=== PATIENT | female | born 1930 | race Caucasian/White ===

== ENCOUNTER 2016-04-17 10:48 | Inpatient (IN) | payer MEDICARE, OTHER ==
[~2016-04-17] VITALS: Ht 170.2 cm; Wt 71.8 kg
--- NOTE | 2016-04-17 11:06 | PHYS DOC ---
General Chief Complaint: SBH Stated Complaint: PSYCH EVLAULATION Time Seen by MD: 10:54 Source: patient, old records Exam Limitations: clinical condition Problems: History of Present Illness Initial Comments Pt is 85/F to ED from [facility] for medical clearance and [facility] admission[facility] for past two week pt increasingly aggressive hitting staff, refusing meds and not sleeping. Pt not sleeping refusing redirection. Staff feels pt inappropriately trying to walk the floor praising God. Pt calm in ED and cooperative. RN reports possible recent fall history, pt with pained expression bearing weight right leg/hip. Pt has DNR Timing/Duration: getting worse (2 weeks) Severity: severe Associated Symptoms: denies symptoms Allergies: Coded Allergies: Penicillins (Verified Allergy, Unknown, 04/17/16) azithromycin (Verified Allergy, Unknown, 04/17/16) Past Medical History Medical History: other (parkinsons, bipolar, psychosis, MDD, eczema, lichen simplex chronicus, disappearance and of family member, hypothyroid, HTN, convulsions, LLE abscess) Surgical History: noncontributory Social History Smoker: non-smoker Alcohol: none Drugs: none Review of Systems All Other Systems: Reviewed and Negative (poor historian accurate ROS unobtainable) Physical Exam General Appearance: no apparent distress Eyes: bilateral eye EOMI, bilateral eye PERRL, bilateral eye normal inspection Ear, Nose, Throat: hearing grossly normal, normal ENT inspection, normal pharynx Neck: non-tender, supple Respiratory: normal breath sounds, no respiratory distress, other (TTP/ bruising R lateral thorax no palpable bony deformity) Cardiovascular: normal peripheral pulses, regular rate, rhythm Gastrointestinal: non tender, soft Back: no CVA tenderness, no vertebral tenderness Extremities: non-tender, normal inspection Neurologic/Psychiatric: alert, disoriented x 3, other (slow to respond, rambles /mumbles, cooperative no hallucinations/agitation) Skin: warm/dry Orders, Labs, Meds EKG: NSR 72 bpm, LVH with poor R progression no STEMI REASON: fall, R hip pain PROCEDURE: HIP BILATERAL WITH PELVIS Exam performed: Single view pelvis and bilateral hips. History: History of fall. Patient is unsure when she fell. Date of service: 04/17/16. Comparison: None available Findings: Single view pelvis and frog leg lateral view bilateral hips are obtained. Study somewhat limited due to positioning. There is foreshortening of the right femoral neck. Joint space narrowing involving both hip joints. There is no acute displaced fracture. Spondylotic changes involving the lumbar spine. Impression: 1. Foreshortening of the right femoral neck without definite visualization of a fracture, however cannot be excluded. Correlate with clinical findings and if there is a suspicion for right hip fracture, evaluation with CT scan may be of benefit. End impression. Right rib series findings: There are several minimally displaced fractures involving the right ribs probably extending from 5 through 8 ribs in the midaxillary line. There is no pleural effusion or pneumothorax. Calcified nodule in the right apex. Impression: 1. Nondisplaced 5 through 8 ribs in the midaxillary line. No pneumothorax. DICTATED AND SIGNED BY: KASIE SOSA MD DATE: 04/17/16 1212 CC: PCP,NO; NAREN BARRIOS DO ~ REASON: further eval R hip PROCEDURE: PELVIS WO CONTRAST Exam performed: CT pelvis without contrast. History: History of fall, suspected right hip fracture. Date of service: 04/17/16. Comparison: X-ray pelvis and right hip from earlier today. Technique: Contiguous helical acquisitions are obtained through the pelvis without IV contrast. Sagittal and coronal before images are obtained and reviewed. Findings: There is narrowing of both hip joints suggesting degenerative arthrosis. No definite fracture seen involving either hip joints or femur is noted. Bilateral sacroiliac joints are preserved. Spondylotic changes involving the lumbar spine. Nonspecific bowel gas pattern. Scattered stool throughout the colon with probable stool impaction rectosigmoid region. Uterus is anteverted. Calcifications within the uterus probably calcified fibroids. Impression: 1. Degenerative arthrosis involving both hips without definite hip fractures. 2. 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 DICTATED AND SIGNED BY: KASIE SOSA MD DATE: 04/17/16 1304 CC: PCP,NO; NAREN BARRIOS DO ~ Pertinent Labs: K+ 3.1 (KCL 40meq given in ED) Medically clear for [facility] admission Dr Dodd is accepting. IMPRESSIONS: Bipolar Disorder with psychotic features hypokalemia mildly displaced right rib fractures 5-8 fall risk Admit to [facility], psychiatric treatment per Dr Dodd. Will replace K+ 20meq PO bid x 2 days, BMP ordered for am. Will reserve analgesics if needed for admitting physician. Departure Time of Disposition: 14:11 Disposition: 09 ADMITTED INPATIENT Diagnosis: bipolar w/psychotic features, hypokalemia, rib fra Condition: STABLE Additional Instructions: [facility] admission Dr Dodd is accepting. NAREN BARRIOS DO Apr 17, 2016 11:06
[2016-04-17 11:32] LABS: BASO % 1 % (0-3); EOS # 0.3 x10^3/uL (0.0-0.7); EOS % 6 % (0-3); HEMATOCRIT 37.5 % (36.0-47.0); HEMOGLOBIN 12.6 g/dL (12.0-15.5); LYMPH # 1.4 x10^3/uL (1.0-4.8); LYMPH % 23 % (24-48); MEAN CORPUSCULAR HEMOGLOBIN 33 pg (25-35); MEAN CORPUSCULAR HGB CONC 34 g/dL (31-37); MEAN CORPUSCULAR VOLUME 97 fL (79-100); MONO # 0.8 x10^3/uL (0.0-1.1); MONO % 13 % (0-9); NEUT # 3.5 x10^3uL (1.8-7.7); NEUT % 59 % (31-73); PLATELET COUNT 207 x10^3/uL (140-400); RED BLOOD COUNT 3.88 x10^6/uL (3.50-5.40); RED CELL DISTRIBUTION WIDTH 13.8 % (11.5-14.5); WHITE BLOOD COUNT 6.1 x10^3/uL (4.0-11.0)
[2016-04-17 11:45] LABS: ALBUMIN 3.6 g/dL (3.4-5.0); ALBUMIN/GLOBULIN RATIO 1.1 (1.0-1.7); CALCIUM 8.1 mg/dL (8.5-10.1); CREATININE 0.8 mg/dL (0.6-1.0); GFR 68.3; POTASSIUM 3.1 mmol/L (3.5-5.1); TOTAL BILIRUBIN 0.5 mg/dL (0.2-1.0); TOTAL PROTEIN 6.8 g/dL (6.4-8.2)
[2016-04-17 11:47] LABS: VAL ACID 37 mcg/mL (50-100)
--- NOTE | 2016-04-17 12:08 | EKG ---
[address] [address] Test Date: 2016-04-17 Test Time: 11:37:06 Pat Name: ROYCE BOOKER Department: Room: Gender: F Information Resources Manager: CHITRA : 1930 Requested By: NAREN BARRIOS Order Number: [id number] Reading MD: Measurements Intervals [place] Rate: 72 P: [place]: QRS: 43 QRSD: 98 T: 27 QT: 486 QTc: 534 Interpretive Statements SINUS RHYTHM QRS(T) CONTOUR ABNORMALITY CONSIDER ANTEROSEPTAL MYOCARDIAL DAMAGE PROLONGED QT POSSIBLY ABNORMAL ECG RI6.01 Unconfirmed report No previous ECG available for comparison
--- NOTE | 2016-04-17 12:22 | RAD ---
Exam performed: Single view pelvis and bilateral hips. History: History of fall. Patient is unsure when she fell. Date of service: 04/17/16. Comparison: None available Findings: Single view pelvis and frog leg lateral view bilateral hips are obtained. Study somewhat limited due to positioning. There is foreshortening of the right femoral neck. Joint space narrowing involving both hip joints. There is no acute displaced fracture. Spondylotic changes involving the lumbar spine. Impression: 1. Foreshortening of the right femoral neck without definite visualization of a fracture, however cannot be excluded. Correlate with clinical findings and if there is a suspicion for right hip fracture, evaluation with CT scan may be of benefit. End impression. Right rib series findings: There are several minimally displaced fractures involving the right ribs probably extending from 5 through 8 ribs in the midaxillary line. There is no pleural effusion or pneumothorax. Calcified nodule in the right apex. Impression: 1. Nondisplaced 5 through 8 ribs in the midaxillary line. No pneumothorax.
[2016-04-17] MEDS ORDERED: POTA20TA4 PO (12:28)
[2016-04-17] MEDS ORDERED: CETY454C TP (12:28)
[2016-04-17] MEDS ORDERED: ESCI10TA PO (12:28)
[2016-04-17] MEDS ORDERED: AMAN100C7 PO (12:28)
[2016-04-17] MEDS ORDERED: ASPI81TA44 PO (12:28)
[2016-04-17] MEDS ORDERED: NYST30PO9 TP (12:28)
[2016-04-17] MEDS ORDERED: RISP1TAB43 PO (12:28)
[2016-04-17] MEDS ORDERED: IBUP200C PO (12:28)
[2016-04-17] MEDS ORDERED: PROP15DR EACHEYE (12:28)
[2016-04-17] MEDS ORDERED: ARIP10TA13 PO (12:28)
[2016-04-17] MEDS ORDERED: LORA1TAB PO (12:28)
[2016-04-17] MEDS ORDERED: PHEN100C PO (12:28)
[2016-04-17] MEDS ORDERED: DIPH25CA58 PO (12:28)
[2016-04-17] MEDS ORDERED: DIVA500T2 PO (12:28)
[2016-04-17] MEDS ORDERED: MINE50OI TP (12:28)
[2016-04-17] MEDS ORDERED: LOPE2TAB56 PO (12:28)
[2016-04-17] MEDS ORDERED: IBUP400T PO (12:28)
[2016-04-17] MEDS ORDERED: BISO1TAB4 PO (12:28)
[2016-04-17] MEDS ORDERED: ACET500T33 PO (12:28)
[2016-04-17] MEDS ORDERED: MULT-503 PO (12:28)
[2016-04-17] MEDS ORDERED: CARB1TAB44 PO (12:28)
[2016-04-17] MEDS ORDERED: LEVO100T5 PO (12:28)
[2016-04-17] MEDS ORDERED: DIVA250T4 PO (12:28)
[2016-04-17] MEDS ORDERED: DOXAPIN (12:28)
[2016-04-17 12:43] LABS: BILIRUBIN,URINE SMALL (NEG); CLARITY,URINE CLEAR; COLOR,URINE ORANGE; GLUCOSE,URINE NEG (NEG)
[2016-04-17 12:44] LABS: BACTERIA,URINE FEW /HPF (0-FEW); NITRITE,URINE NEG (NEG); SQUAMOUS EPITHELIAL CELL,UR FEW /LPF; UROBILINOGEN,URINE 0.2 mg/dL (0.2 mg/dL)
[2016-04-17 12:45] LABS: GRANULAR CASTS,URINE FEW /HPF; HYALINE CASTS, URINE MANY /HPF
[2016-04-17] MEDS ORDERED: POTASSIUM CHLORIDE 20 MEQ/15 ML ORAL LIQUID. PO ONE (13:00)
--- NOTE | 2016-04-17 13:16 | RAD ---
Exam performed: CT pelvis without contrast. History: History of fall, suspected right hip fracture. Date of service: 04/17/16. Comparison: X-ray pelvis and right hip from earlier today. Technique: Contiguous helical acquisitions are obtained through the pelvis without IV contrast. Sagittal and coronal before images are obtained and reviewed. Findings: There is narrowing of both hip joints suggesting degenerative arthrosis. No definite fracture seen involving either hip joints or femur is noted. Bilateral sacroiliac joints are preserved. Spondylotic changes involving the lumbar spine. Nonspecific bowel gas pattern. Scattered stool throughout the colon with probable stool impaction rectosigmoid region. Uterus is anteverted. Calcifications within the uterus probably calcified fibroids. Impression: 1. Degenerative arthrosis involving both hips without definite hip fractures. 2. 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
[2016-04-17] MEDS ORDERED: ACETAMINOPHEN 325 MG TABLET PO PRN ×2 (14:15→15:30)
[2016-04-17 15:12] VITALS: BP 130/82
[2016-04-17] MEDS ORDERED: MAG HYDROX/AL HYDROX/SIMETH 30 ML ORAL.SUSP PO PRN (15:30)
[2016-04-17] MEDS ORDERED: METHYL SALICYLATE/MENTHOL TOPICAL OINTMENT 29GM TUBE. TP PRN (15:30)
[2016-04-17] MEDS ORDERED: DIPHENHYDRAMINE HCL 25 MG CAPSULE PO PRN (15:30)
[2016-04-17] MEDS ORDERED: MAGNESIUM HYDROXIDE 2,400 MG/30 ML ORAL.SUSP. PO PRN (15:30)
[2016-04-17] MEDS ORDERED: PEG OU PRN (15:30)
[2016-04-17] MEDS ORDERED: PROPYLENE GLYCOL OU PRN (15:30)
[2016-04-17] MEDS ORDERED: NYSTATIN TOPICAL POWDER 30GM BOTTLE. TP PRN (15:30)
[2016-04-17] MEDS: MINERAL OIL/PETROLATUM TOPICAL CREAM 113GM JAR. TP SCH ×2 (15:45→20:33)
[2016-04-17] MEDS ORDERED: LOPERAMIDE 2 MG CAPSULE PO PRN (15:45)
[2016-04-17] MEDS ORDERED: IBUPROFEN 200 MG TABLET PO PRN (15:45)
[2016-04-17] MEDS: DIVALPROEX SODIUM 250 MG TABLET.DR. PO SCH (16:30)
[2016-04-17] MEDS: ACETAMINOPHEN 500 MG TABLET PO SCH ×2 (17:00→20:33)
[2016-04-17] MEDS ORDERED: HCTZ PO SCH (17:00)
[2016-04-17] MEDS ORDERED: BISOPROLOL PO SCH (17:00)
[2016-04-17] MEDS: HYDROCHLOROTHIAZIDE 25 MG TABLET PO SCH (17:00)
[2016-04-17] MEDS: ATENOLOL 50 MG TABLET PO SCH (17:00)
[2016-04-17] MEDS: CARBIDOPA/LEVODOPA CR 50/200MG TABLET.SA PO SCH ×2 (17:00→20:32)
--- NOTE | 2016-04-17 17:08 | ACF ---
Admission Criteria Forms PSYCHIATRIC DISORDERS Clinical Indications for Inpatient Care (Place 'X' for any and all applicable criteria): Ongoing inpatient care may be needed for ANY ONE of the following(1)(2)(3)(4)(6) (7)(8): [ ]I. Danger to self or others not manageable at lower level of care. [ ]II. Grave disability (eg, inability to perform self care necessary at lower level of care) [X]III. Agitation or inappropriate behavior interfering with care for primary condition (eg, attempting to discontinue lines or drains prematurely, unable to cooperate with respiratory care) [ ]IV. Severe disability or disorder indicated by ALL of the following: [ ]a) Severe behavioral health disorder-related symptoms or condition indicated by ANY ONE of the following: [ ]i) Severe problem with cognition, memory, judgment, or impulse control [ ]ii) Severe clinical manifestations (eg, hallucinations, delusions, other acute psychotic symptoms, edd, extreme agitation or anxiety) [ ]b) Patient management at lower level of care is not feasible until acute intervention or modification is initiated. Extended stay beyond goal length of stay for the primary condition may be indicated when ANY ONE of the following is present: (1)(2)(3)(4): [ ]a) Patient is a danger to self or others and not manageable at lower level of care. [ ]b) Behavior crisis management, including physical or chemical restraints, is required and is not available at a lower level of care. [ ]c) Behavioral symptoms (e.g., agitation, somnolence, inappropriate behavior) are present, and are not manageable at a lower level of care. [ ]d) Patient cannot understand follow-up treatment and crisis plan. [ ]e) Provider and supports are not sufficiently available at lower level of care. [ ]f) Patient cannot participate (e.g., verify absence of plan for harm) and is in needed of monitoring. The original [employer] content created by [employer] has been revised. The portions of the content which have been revised are identified through the use of italic text or in bold, and [facility] has neither reviewed nor approved the modified material. All other unmodified content is copyright [facility] [employer]. Please see references footnoted in the original [facility] edition 2016 Admission Criteria Met?: Yes PRAMOD BARROW Apr 17, 2016 17:08
[2016-04-17] MEDS ORDERED: MIRT15TA PO (17:35)
[2016-04-17] MEDS ORDERED: TRAZ50TA15 PO (17:35)
[2016-04-17] MEDS: POTASSIUM CHLORIDE 20 MEQ TABLET.ER. PO SCH (17:47)
[2016-04-17] MEDS: ARIPIPRAZOLE 10 MG TABLET PO SCH (20:31)
[2016-04-17] MEDS: IBUPROFEN 400 MG TABLET. PO SCH (20:32)
[2016-04-17] MEDS: CETAPHIL TP SCH (20:32)
[2016-04-17] MEDS: DOXEPIN HCL 10 MG CAPSULE PO SCH (20:32)
[2016-04-17] MEDS ORDERED: PHENYTOIN SODIUM EXTENDED 100 MG CAPSULE PO SCH (21:00)
[2016-04-18] MEDS: LEVOTHYROXINE 100 MCG TABLET PO SCH (05:50)
[2016-04-18] MEDS: POTASSIUM CHLORIDE 20 MEQ TABLET.ER. PO SCH ×2 (05:50→18:06)
[2016-04-18 06:22] VITALS: BP 132/59
[2016-04-18 08:01] LABS: CALCIUM 8.3 mg/dL (8.5-10.1); CREATININE 0.7 mg/dL (0.6-1.0); GFR 79.7; POTASSIUM 3.6 mmol/L (3.5-5.1)
[2016-04-18 08:09] LABS: PHENY 4.9 mcg/mL (10.0-20.0)
[2016-04-18 08:14] LABS: VAL ACID 8 mcg/mL (50-100)
--- NOTE | 2016-04-18 08:42 | PDOC ---
Exam Andrea Demential Exam: Andrea Note: Please also refer to the separate dictated note~for this date of service dictated separately.~Patient seen individually. Discussed the patient with Nursing staff reviewed the chart.~Reviewed interim history and current functioning. Reviewed vital signs,~Labs/ Radiology~and current medications noted below. Continue current treatment with the changes noted in the dictated addendum note Assessment: Vital Signs: Vital Signs Date Time Temp Pulse Resp B/P Pulse Ox O2 Delivery O2 Flow Rate FiO2 04/18/16 06:22 98.4 73 20 132/59 98 Room Air I&O Intake and Output 04/18/16 07:00 Intake Total 200 ml Balance 200 ml Intake Oral 200 ml Labs: Laboratory Tests Test 04/17/16 11:17 04/17/16 11:40 04/18/16 07:31 White Blood Count 6.1x10^3/uL (4.0-11.0) Red Blood Count 3.88x10^6/uL (3.50-5.40) Hemoglobin 12.6g/dL (12.0-15.5) Hematocrit 37.5% (36.0-47.0) Mean Corpuscular Volume 97fL (79-100) Mean Corpuscular Hemoglobin 33pg (25-35) Mean Corpuscular Hemoglobin Concent 34g/dL (31-37) Red Cell Distribution Width 13.8% (11.5-14.5) Platelet Count 207x10^3/uL (140-400) Neutrophils (%) (Auto) 59% (31-73) Lymphocytes (%) (Auto) 23% (24-48) L Monocytes (%) (Auto) 13% (0-9) H Eosinophils (%) (Auto) 6% (0-3) H Basophils (%) (Auto) 1% (0-3) Neutrophils # (Auto) 3.5x10^3uL (1.8-7.7) Lymphocytes # (Auto) 1.4x10^3/uL (1.0-4.8) Monocytes # (Auto) 0.8x10^3/uL (0.0-1.1) Eosinophils # (Auto) 0.3x10^3/uL (0.0-0.7) Basophils # (Auto) 0.0x10^3/uL (0.0-0.2) Sodium Level 141mmol/L (136-145) 144mmol/L (136-145) Potassium Level 3.1mmol/L (3.5-5.1) L 3.6mmol/L (3.5-5.1) Chloride Level 102mmol/L (98-107) 104mmol/L (98-107) Carbon Dioxide Level 31mmol/L (21-32) 31mmol/L (21-32) Anion Gap 8 (6-14) 9 (6-14) Blood Urea Nitrogen 24mg/dL (7-20) H 20mg/dL (7-20) Creatinine 0.8mg/dL (0.6-1.0) 0.7mg/dL (0.6-1.0) Estimated GFR (Cockcroft-Gault) 68.3 79.7 BUN/Creatinine Ratio 30 (6-20) H Glucose Level 103mg/dL (70-99) H 87mg/dL (70-99) Calcium Level 8.1mg/dL (8.5-10.1) L 8.3mg/dL (8.5-10.1) L Total Bilirubin 0.5mg/dL (0.2-1.0) Aspartate Amino Transferase (AST) 34U/L (15-37) Alanine Aminotransferase (ALT) 13U/L (14-59) L Alkaline Phosphatase 122U/L (46-116) H Total Protein 6.8g/dL (6.4-8.2) Albumin 3.6g/dL (3.4-5.0) Albumin/Globulin Ratio 1.1 (1.0-1.7) Thyroid Stimulating Hormone (TSH) 8.142uIU/mL (0.358-3.740) Phenytoin (Dilantin) Level 4.0mcg/mL (10.0-20.0) L 4.9mcg/mL (10.0-20.0) L Phenytoin Last Dose Date 04/17/16 04/17/16 Phenytoin Last Dose Time [id number] Valproic Acid Level 37mcg/mL (50-100) L 8mcg/mL (50-100) L Valproic Acid Last Dose Date 04/17/16 04/17/16 Valproic Acid Last Dose Time 0700 2100 Urine Collection Type U cath Urine Color [place] Urine Clarity Clear Urine pH 5.5 Urine Specific [place] >=1.030 Urine Protein Trace (NEG-TRACE) Urine Glucose (UA) Negmg/dL (NEG) Urine Ketones (Stick) Tracemg/dL (NEG) Urine Blood Neg (NEG) Urine Nitrite Neg (NEG) Urine Bilirubin Small (NEG) Urine Urobilinogen Dipstick 0.2mg/dL (0.2 mg/dL) Urine Leukocyte Esterase Neg (NEG) Urine RBC 1-2/HPF (0-2) Urine WBC 1-4/HPF (0-4) Urine Squamous Epithelial Cells Few/LPF Urine Bacteria Few/HPF (0-FEW) Urine Hyaline Casts Many/HPF Urine Granular Casts Few/HPF Urine Mucus Slight/LPF Magnesium Level 1.8mg/dL (1.8-2.4) Current Medications: Meds: Current Medications Potassium Chloride (KCl Oral Soln) 40 meq 1X ONCE PO Last administered on 04/17 13:12; Start 04/17/16 at 13:00; Stop 04/17/16 at 13:01; Status DC Acetaminophen (Tylenol) 650 mg PRN Q6HRS PRN PO PAIN / TEMP; Start 04/17/16 at 14:15; Status Cancel Potassium Chloride (Klor-Con) 20 meq BID66 PO Last administered on 04/18/16 05: 50; Start 04/17/16 at 18:00; Stop 04/19/16 at 07:00 Acetaminophen (Tylenol) 650 mg PRN Q6HRS PRN PO PAIN / TEMP; Start 04/17/16 at 15:30 Multi-Ingredient Ointment (Analgesic [place]) 1 beba PRN QID PRN TP MUSCLE PAIN; Start 04/17/16 at 15:30 Al Hydroxide/Mg Hydroxide (Mylanta Plus Xs) 15 ml PRN AFTMEALHC PRN PO DYSPEPSIA; Start 04/17/16 at 15:30 Magnesium Hydroxide (Milk Of Magnesia) 2,400 mg PRN QHS PRN PO CONSTIPATION; Start 04/17/16 at 15:30 Acetaminophen (Tylenol) 500 mg QID PO Last administered on 04/17/16 20:33; Start 04/17/16 at 17:00 Amantadine HCl (Symmetrel) 100 mg DAILY PO ; Start 04/18/16 at 09:00 Aripiprazole (Abilify) 10 mg HS PO Last administered on 04/17/16 20:31; Start 04/17/16 at 21:00 Aspirin (Children'S Aspirin) 81 mg DAILY PO ; Start 04/18/16 at 09:00 Bisoprolol Fumarate (Ziac 5-6.25) 1 tab DAILYWSUP PO ; Start 04/17/16 at 17:00; Stop 04/17/16 at 17:00; Status DC Carbidopa/Levodopa (Sinemet Cr) 1 tab.sa QID PO Last administered on 04/17/16 20:32; Start 04/17/16 at 17:00 Diphenhydramine HCl (Benadryl) 25 mg PRN Q4HRS PRN PO ITCHING; Start 04/17/16 at 15:30 Divalproex Sodium (Depakote) 250 mg BIDACLD PO ; Start 04/17/16 at 16:30 Escitalopram Oxalate (Lexapro) 10 mg DAILY PO ; Start 04/18/16 at 09:00 Ibuprofen (Motrin) 400 mg HS PO Last administered on 04/17/16 20:32; Start at 21:00 Levothyroxine Sodium (Synthroid) 100 mcg DAILY06 PO Last administered on 05:50; Start 04/18/16 at 06:00 Lorazepam (Ativan) 1 mg PRN Q8HRS PRN PO ANXIETY / AGITATION; Start 04/17/16 at 15:30 Nystatin (Nystop) 1 beba PRN TID PRN TP ITCHING; Start 04/17/16 at 15:30 Phenytoin Sodium (Dilantin) 300 mg HS PO Last administered on 04/17/16 20:31; Start 04/17/16 at 21:00 Potassium Chloride (Klor-Con) 20 meq DAILY PO ; Start 04/18/16 at 09:00; Stop 04/18/16 at 09:00; Status DC Polyethyl Glycol/ Propylene Glycol (Systane 0.3-0.4% Ophth) 1 drop PRN QID PRN OU DRY EYE; Start 04/17/16 at 15:30 Multi-Ingredient Lotion (Cetaphil Moisturizing Lotion) 1 beba BID TP Last administered on 04/17/16 20:32; Start 04/17/16 at 21:00 Divalproex Sodium (Depakote) 500 mg DAILY PO ; Start 04/18/16 at 09:00 Ibuprofen (Motrin) 200 mg PRN Q6HRS PRN PO PAIN; Start 04/17/16 at 15:45 Loperamide HCl (Imodium) 2 mg PRN Q15MIN PRN PO DIARRHEA; Start 04/17/16 at 15: 45 Multi-Ingred Cream/Lotion/Oil/ Oint (Hydrocerin) 1 beba QHS TP Last administered on 04/17/16 20:33; Start 04/17/16 at 15:45 Multivitamins/ Calcium (Thera-M Plus) 1 tab DAILY PO ; Start 04/18/16 at 09:00 Doxepin HCl (Sinequan) 10 mg QHS PO Last administered on 04/17/16 20:32; Start 04/17/16 at 21:00 Atenolol (Tenormin) 50 mg DAILYWSUP PO ; Start 04/17/16 at 17:00 Hydrochlorothiazide (Hydrodiuril) 6.25 mg DAILYWSUP PO ; Start 04/17/16 at 17:00 Potassium Chloride (Klor-Con) 20 meq DAILY PO ; Start 04/20/16 at 09:00 Active Scripts Active Reported Trazodone Hcl 50 Mg Tablet 50 Mg PO PRN QHS PRN Remeron (Mirtazapine) 15 Mg Tablet 7.5 Mg PO HS Klor-Con M20 (Potassium Chloride) 20 Meq Tab.er.prt 20 Meq PO DAILY Systane 0.3-0.4% Eye Drops (Propylene Glycol/Peg 400) 15 Ml Drops 1 Drop EACHEYE PRN PRN Nystatin 15 Gm Powder 1 Beba TP PRN PRN Lorazepam 1 Mg Tablet 1 Mg PO PRN Q8HRS PRN Anti-Diarrhea (Loperamide Hcl) 2 Mg Tablet 2 Mg PO PRN PRN Ibuprofen 200 Mg Capsule 200 Mg PO PRN Q6HRS PRN Benadryl (Diphenhydramine Hcl) 25 Mg Capsule 25 Mg PO PRN Q4HRS PRN Tylenol Extra Strength (Acetaminophen) 500 Mg Tablet 500 Mg PO QID Carbidopa-Levo Er 50-200 Tab (Carbidopa/Levodopa) 1 Each Tablet.er 1 Each PO QID Depakote (Divalproex Sodium) 250 Mg Tablet.dr 250 Mg PO BIDACLD Cetaphil Cream (Cetyl Alc/Stearyl Alc/Pg/Sls) 454 Gm Cream..g. 1 Beba TP BID Thera-M (Multivits,Th W-Fe,Other Min) 1 Each Tablet 1 Each PO DAILY Dilantin (Phenytoin Sodium Extended) 100 Mg Capsule 300 Mg PO HS Escitalopram Oxalate 10 Mg Tablet 10 Mg PO DAILY Levothyroxine Sodium 100 Mcg Tablet 100 Mcg PO DAILYAC Ibuprofen 400 Mg Tablet 400 Mg PO HS [doxapin] 10 Mg HS Depakote (Divalproex Sodium) 500 Mg Tablet.dr 500 Mg PO DAILY Bisoprolol-Hctz 5-6.25 Mg Tab (Bisoprolol Fumarate/Hctz) 1 Each Tablet 1 Tab PO DAILYWSUP Children's Aspirin (Aspirin) 81 Mg Tab.chew 81 Mg PO DAILY Amantadine (Amantadine Hcl) 100 Mg Capsule 100 Mg PO DAILY Abilify (Aripiprazole) 10 Mg Tablet 10 Mg PO HS Aquaphor Healing Ointment (Mineral Oil/Hydrophil Petrolat) 50 Gm Oint...g. 1 Beba TP HS Diagnosis: Problems: (1) Bipolar disorder with psychotic features LOUANN ARCEO MD Apr 18, 2016 08:42
[2016-04-18] MEDS ORDERED: POTASSIUM CHLORIDE 20 MEQ TABLET.ER. PO SCH (09:00)
[2016-04-18] MEDS: CETAPHIL TP SCH ×2 (09:00→20:16)
[2016-04-18] MEDS: ACETAMINOPHEN 500 MG TABLET PO SCH ×4 (09:31→20:17)
[2016-04-18] MEDS: MULTIVITAMIN with MINERAL TABLET. PO SCH (09:31)
[2016-04-18] MEDS: CARBIDOPA/LEVODOPA CR 50/200MG TABLET.SA PO SCH ×4 (09:31→20:19)
[2016-04-18] MEDS: ESCITALOPRAM 10 MG TABLET. PO SCH (09:31)
[2016-04-18] MEDS: ASPIRIN 81 MG TAB.CHEW PO SCH (09:31)
[2016-04-18] MEDS: AMANTADINE HCL 100 MG CAPSULE PO SCH (09:32)
[2016-04-18] MEDS: DIVALPROEX SODIUM 250 MG TABLET.DR. PO SCH ×3 (09:33→18:06)
[2016-04-18 14:11] LABS: IRON,SERUM 76 ug/dL (50-170)
[2016-04-18 15:57] VITALS: BP 104/54
[2016-04-18] MEDS: HYDROCHLOROTHIAZIDE 25 MG TABLET PO SCH (17:00)
[2016-04-18] MEDS: ATENOLOL 50 MG TABLET PO SCH (17:00)
--- NOTE | 2016-04-18 17:36 | HP ---
ADMIT DATE: 04/17/2016 The patient was seen individually evening of 04/17/2016 for this assessment, discussed with nursing staff earlier in the day, reviewed the chart, reviewed information from alf. IDENTIFYING DATA: The patient is an 85-year-old female [facility] Dr. Mclaughlin, her primary care physician, on account of increasing agitation after the patient was hitting staff, had marked insomnia, aggressive, refusing medications, hyper-restoration, hallucinating within the context of her history of dementia versus bipolar disorder and failure for outpatient psychiatric interventions. CHIEF COMPLAINT: "I'm okay." The patient was lying in bed, seemed oriented just to herself, but difficult to assess as she is not very verbal as I met with her evening of 04/17/2016. HISTORY OF PRESENT ILLNESS: The patient has a history of bipolar disorder with psychotic features. Recently, she has been hitting staff, has had marked insomnia, aggression, refusing medications, hyper-restoration, hallucinating. She has had some sleep and appetite changes as well. Reportedly, per nursing report, the patient has had multiple bruising around her chest area and has fractured ribs on x-ray and I will defer to Dr. Calero/Dr. Palmer for medical management. No clear suicidal or homicidal ideation. She does have significant history of mood swings, consistent with her above diagnosis. PAST PSYCHIATRIC HISTORY: As above. PAST MEDICAL HISTORY: Hypothyroidism, Parkinson's disease, hypertension, seizure disorder. ALLERGIES: PENICILLIN, AZITHROMYCIN. CODE STATUS: DNR. CURRENT PSYCHOTROPICS: Remeron 7.5 mg at bedtime, trazodone 50 mg at bedtime p.r.n., may repeat x 1 for insomnia. FAMILY HISTORY: Noncontributory. SOCIAL HISTORY: No alcohol, drug abuse, physical, sexual or elder abuse history is noted. She is not known to be a perpetrator. MENTAL STATUS EXAMINATION: The patient was seen individually evening of 04/17/2016. She is lying in bed, oriented to herself, not very verbal. Insight, judgment, recent and remote memory, attention, concentration, fund of knowledge poor, consistent with her diagnosis. VITAL SIGNS: Temperature 97.8, respirations 18, BP 134/66. IMPRESSION: Bipolar 1 disorder, mixed episode with psychotic features; major neurocognitive disorder, early Alzheimer, vascular with delusions, behavioral disturbance; anxiety disorder, unspecified; impulse control disorder, unspecified. Rest diagnoses unchanged. PLAN: Admit to the geropsychiatry unit at [facility]. Request Dr. Calero/Dr. Palmer to follow the patient from a medical standpoint. I will see the patient daily individually, observe baseline, then adjust psychotropics. We may need to add Seroquel as a mood stabilizer, but we would make this decision after the baseline assessment. MAN Mary ARCEO MD DR: BETSY/brandie JOB#: [id number] / [id number]
[2016-04-18 18:11] LABS: T3 TOTAL 103 ng/dL (71-180); THYROXINE 5.5 ug/dL (4.5-12.0)
[2016-04-18] MEDS: MINERAL OIL/PETROLATUM TOPICAL CREAM 113GM JAR. TP SCH (20:17)
[2016-04-18] MEDS: OXcarbazepine 150 MG TABLET. PO SCH (20:18)
[2016-04-18] MEDS: PHENYTOIN SODIUM EXTENDED 100 MG CAPSULE PO SCH (20:19)
[2016-04-18] MEDS: IBUPROFEN 400 MG TABLET. PO SCH (20:19)
[2016-04-18] MEDS: ARIPIPRAZOLE 10 MG TABLET PO SCH (20:19)
[2016-04-18] MEDS: DOXEPIN HCL 10 MG CAPSULE PO SCH (22:07)
[2016-04-19 01:10] LABS: VITAMIN D25(OH)TOTAL 7.1 ng/mL (30.0-100.0)
--- NOTE | 2016-04-19 02:21 | CONS ---
DATE OF CONSULTATION: 04/18/2016 REASON FOR CONSULTATION: Medical management. HISTORY OF PRESENT ILLNESS: The patient is an 85-year-old female patient, a resident at [facility], who was evaluated in the Emergency Room, was admitted to [facility] on the account of being increasingly aggressive over the last 2 weeks, hitting staff, refusing medication, and not sleeping, and was admitted for inpatient psychiatric stabilization. PAST MEDICAL HISTORY: Significant for hypertension, hypothyroidism, seizure disorder, and Parkinson disease. PAST PSYCHIATRIC HISTORY: Significant for bipolar disorder, major depressive disorder, and psychosis. PAST SURGICAL HISTORY: Unremarkable. FAMILY HISTORY: Noncontributory. SOCIAL HISTORY: [facility]. She does not smoke, drink alcohol, or use recreational drugs. ALLERGIES: She is allergic to PENICILLIN AND AZITHROMYCIN. MEDICATIONS: She is currently on Tylenol 500 mg 4 times a day, amantadine 100 mg once a day, Abilify 10 mg at bedtime, aspirin 81 mg once a day, bisoprolol fumarate/hydrochlorothiazide 5/6.25 mg once a day, carbidopa/levodopa extended release 50/200 one tablet 4 times a day, Cetaphil cream applied topically twice a day for dry skin, diphenhydramine 25 mg every 4 hours for itching, divalproex sodium 500 mg once a day, Depakote 250 mg p.o. b.i.d., Lexapro 10 mg once a day, ibuprofen 400 mg at bedtime, ibuprofen 200 mg every 6 hours, levothyroxine sodium 100 mcg once a day, loperamide 2 mg as needed every 4 hours for diarrhea, mirtazapine 7.5 mg at bedtime, multivitamin with mineral 1 tablet once a day, nystatin powder applied topically twice a day, phenytoin sodium for Dilantin 300 mg at bedtime, potassium chloride 20 mEq once a day, Systane 1 drop to both eyes as needed, trazodone 50 mg at bedtime, doxepin 10 mg at bedtime. PHYSICAL EXAMINATION: GENERAL: On examining her, the patient was sitting comfortably in her wheelchair, in no apparent distress. She was slightly pale, but no jaundice, cyanosis, or thyromegaly. No jugular venous distention. No limb edema. VITAL SIGNS: Her heart rate was 73, blood pressure 132/59, temperature was 98.4, respiratory rate 20, and oxygen saturation was 98%. HEAD, EYES, EARS, NOSE, AND THROAT: Showed normocephalic, atraumatic. NECK: Supple. HEART: Showed normal first and second heart sounds. No gallop, rub, or murmur. CHEST: Clear to auscultation. No crepitation or rhonchi. ABDOMEN: Distended, soft, nontender. No guarding or rigidity. No organomegaly. All hernial orifices are intact. Bowel sounds normal. NEUROLOGIC: She is awake, alert, and confused. All cranial nerves intact. EXTREMITIES: She moves extremities without difficulty, although she is mostly chair bound. LABORATORY DATA: Her lab work showed a white cell count of 6100, hemoglobin 12.6, hematocrit 37.5, MCV 97, and platelet count of 207,000 with normal manual differential. Her serum sodium was 141, potassium 3.1, chloride 102, bicarbonate 31, anion gap of 8, BUN 24, creatinine 0.8. Estimated GFR was 68 mL per minute. Her glucose was 103, calcium was 8.1. Total bilirubin, AST, ALT were normal. Alkaline phosphatase is slightly elevated. Total protein was 6.8, albumin 3.6. Her TSH was high at 8.142. Her magnesium was 1.8. Serum iron was 76, total iron binding capacity was 111, and percent saturation was 36. Her serum triglycerides were 168, total cholesterol was 233, LDL was 158, VLDL was 33, and HDL cholesterol was 42, the ratio was 5. Her urinalysis was essentially unremarkable and was negative for nitrites and leukocyte esterase. There were only 1-4 rbc's, very few bacteria. Her toxic screen showed that her valproic acid was only 37, and phenytoin was 4.9. She did have a CT scan. She did have an x-ray, single view, of the pelvis and bilateral hips, which showed that there is foreshortening of the right femoral neck without definite visualization of the fracture; however, it cannot be excluded. Correlate with clinical findings, and if there is a suspicion with the right hip fracture to evaluate with a CT scan. She did have a right hip series finding in which there are several minimally displaced fractures involving the right ribs, probably extending from the fifth to eighth ribs in the mid axillary area. There is no pleural effusion or pneumothorax. Calcified nodules in the right apex. The CT scan of the pelvis showed degenerative arthrosis involving both hip joints without definite hip fractures, spondylitic changes, degenerative disk disease involving the lumbar spine. IMPRESSION: In summary, this is an 85-year-old female patient, who was a resident at [facility], who was admitted on the account of being increasingly aggressive, hitting staff, refusing medications, and not sleeping; all these in the background of major depressive disorder and psychosis. She has multiple medical problems including hypothyroidism, Parkinson disease, seizure disorder. Her phenytoin level is subtherapeutic. Her TSH is high. PLAN: My plan is to check her T3, T4, free T4, and repeat her Dilantin level to see whether she might have missed some doses and that is why her phenytoin level is subtherapeutic. Thank you, Dr. Dodd for allowing me to participate in the care of this patient. KRISTIE BABCOCK MD DR: ROBINSON/brandie JOB#: [id number] / [id number]
[2016-04-19 03:11] LABS: RPR REFLEX Negative (Non Reactive)
[2016-04-19] MEDS: POTASSIUM CHLORIDE 20 MEQ TABLET.ER. PO SCH (05:52)
[2016-04-19] MEDS: LEVOTHYROXINE 100 MCG TABLET PO SCH (05:52)
[2016-04-19 06:24] VITALS: BP 150/67
[2016-04-19] MEDS: ESCITALOPRAM 10 MG TABLET. PO SCH (08:18)
[2016-04-19] MEDS: CARBIDOPA/LEVODOPA CR 50/200MG TABLET.SA PO SCH ×4 (08:18→20:32)
[2016-04-19] MEDS: OXcarbazepine 150 MG TABLET. PO SCH ×2 (08:18→20:31)
[2016-04-19] MEDS: ACETAMINOPHEN 500 MG TABLET PO SCH ×4 (08:19→20:32)
[2016-04-19] MEDS: ASPIRIN 81 MG TAB.CHEW PO SCH (08:19)
[2016-04-19] MEDS: DIVALPROEX SODIUM 250 MG TABLET.DR. PO SCH ×3 (08:19→17:15)
[2016-04-19] MEDS: MULTIVITAMIN with MINERAL TABLET. PO SCH (08:19)
[2016-04-19] MEDS: LIDOCAINE (700MG/PATCH) PATCH. TD SCH (08:21)
[2016-04-19] MEDS: AMANTADINE HCL 100 MG CAPSULE PO SCH (08:21)
[2016-04-19] MEDS: CETAPHIL TP SCH ×2 (08:22→20:34)
--- NOTE | 2016-04-19 08:39 | PDOC ---
Exam Andrea Demential Exam: Andrea Note: Please also refer to the separate dictated note~for this date of service dictated separately.~Patient seen individually. Discussed the patient with Nursing staff reviewed the chart.~Reviewed interim history and current functioning. Reviewed vital signs,~Labs/ Radiology~and current medications noted below. Continue current treatment with the changes noted in the dictated addendum note Assessment: Vital Signs: Vital Signs Date Time Temp Pulse Resp B/P Pulse Ox O2 Delivery O2 Flow Rate FiO2 04/19/16 06:24 98.0 73 20 150/67 94 Room Air I&O Intake and Output 04/19/16 07:00 Intake Total 840 ml Balance 840 ml Intake Oral 840 ml # Bowel Movements 1 Current Medications: Meds: Current Medications Potassium Chloride (KCl Oral Soln) 40 meq 1X ONCE PO Last administered on 04/17 13:12; Start 04/17/16 at 13:00; Stop 04/17/16 at 13:01; Status DC Acetaminophen (Tylenol) 650 mg PRN Q6HRS PRN PO PAIN / TEMP; Start 04/17/16 at 14:15; Status Cancel Potassium Chloride (Klor-Con) 20 meq BID66 PO Last administered on 04/19/16 05: 52; Start 04/17/16 at 18:00; Stop 04/19/16 at 07:00; Status DC Acetaminophen (Tylenol) 650 mg PRN Q6HRS PRN PO PAIN / TEMP; Start 04/17/16 at 15:30 Multi-Ingredient Ointment (Analgesic Bushnell) 1 beba PRN QID PRN TP MUSCLE PAIN; Start 04/17/16 at 15:30 Al Hydroxide/Mg Hydroxide (Mylanta Plus Xs) 15 ml PRN AFTMEALHC PRN PO DYSPEPSIA; Start 04/17/16 at 15:30 Magnesium Hydroxide (Milk Of Magnesia) 2,400 mg PRN QHS PRN PO CONSTIPATION; Start 04/17/16 at 15:30 Acetaminophen (Tylenol) 500 mg QID PO Last administered on 04/19/16 08:19; Start 04/17/16 at 17:00 Amantadine HCl (Symmetrel) 100 mg DAILY PO Last administered on 04/19/16 08:21 ; Start 04/18/16 at 09:00 Aripiprazole (Abilify) 10 mg HS PO Last administered on 04/18/16 20:19; Start 04/17/16 at 21:00 Aspirin (Children'S Aspirin) 81 mg DAILY PO Last administered on 04/19/16 08:19 ; Start 04/18/16 at 09:00 Bisoprolol Fumarate (Ziac 5-6.25) 1 tab DAILYWSUP PO ; Start 04/17/16 at 17:00; Stop 04/17/16 at 17:00; Status DC Carbidopa/Levodopa (Sinemet Cr) 1 tab.sa QID PO Last administered on 04/19/16 08:18; Start 04/17/16 at 17:00 Diphenhydramine HCl (Benadryl) 25 mg PRN Q4HRS PRN PO ITCHING; Start 04/17/16 at 15:30 Divalproex Sodium (Depakote) 250 mg BIDACLD PO Last administered on 04/18/16 18 :06; Start 04/17/16 at 16:30 Escitalopram Oxalate (Lexapro) 10 mg DAILY PO Last administered on 04/19/16 08: 18; Start 04/18/16 at 09:00 Ibuprofen (Motrin) 400 mg HS PO Last administered on 04/18/16 20:19; Start at 21:00 Levothyroxine Sodium (Synthroid) 100 mcg DAILY06 PO Last administered on 05:52; Start 04/18/16 at 06:00 Lorazepam (Ativan) 1 mg PRN Q8HRS PRN PO ANXIETY / AGITATION; Start 04/17/16 at 15:30 Nystatin (Nystop) 1 beba PRN TID PRN TP ITCHING; Start 04/17/16 at 15:30 Phenytoin Sodium (Dilantin) 300 mg HS PO Last administered on 04/17/16 20:31; Start 04/17/16 at 21:00; Stop 04/18/16 at 16:28; Status DC Potassium Chloride (Klor-Con) 20 meq DAILY PO ; Start 04/18/16 at 09:00; Stop 04/18/16 at 09:00; Status DC Polyethyl Glycol/ Propylene Glycol (Systane 0.3-0.4% [facility]) 1 drop PRN QID PRN OU DRY EYE; Start 04/17/16 at 15:30 Multi-Ingredient Lotion (Cetaphil Moisturizing Lotion) 1 beba BID TP Last administered on 04/17/16 20:32; Start 04/17/16 at 21:00; Stop 04/18/16 at 15:18 ; Status DC Divalproex Sodium (Depakote) 500 mg DAILY PO Last administered on 04/19/16 08: 19; Start 04/18/16 at 09:00 Ibuprofen (Motrin) 200 mg PRN Q6HRS PRN PO PAIN; Start 04/17/16 at 15:45 Loperamide HCl (Imodium) 2 mg PRN Q15MIN PRN PO DIARRHEA; Start 04/17/16 at 15: 45 Multi-Ingred Cream/Lotion/Oil/ Oint (Hydrocerin) 1 beba QHS TP Last administered on 04/17/16 20:33; Start 04/17/16 at 15:45; Stop 04/18/16 at 15:17 ; Status DC Multivitamins/ Calcium (Thera-M Plus) 1 tab DAILY PO Last administered on 08:19; Start 04/18/16 at 09:00 Doxepin HCl (Sinequan) 10 mg QHS PO Last administered on 04/18/16 22:07; Start 04/17/16 at 21:00 Atenolol (Tenormin) 50 mg DAILYWSUP PO ; Start 04/17/16 at 17:00 Hydrochlorothiazide (Hydrodiuril) 6.25 mg DAILYWSUP PO ; Start 04/17/16 at 17:00 Potassium Chloride (Klor-Con) 20 meq DAILY PO ; Start 04/20/16 at 09:00 Multi-Ingred Cream/Lotion/Oil/ Oint (Hydrocerin) 1 beba QHS TP Last administered on 04/18/16 20:17; Start 04/18/16 at 15:17 Multi-Ingredient Lotion (Cetaphil Moisturizing Lotion) 1 beba BID TP Last administered on 04/19/16 08:22; Start 04/18/16 at 15:18 Phenytoin Sodium (Dilantin) 400 mg HS PO Last administered on 04/18/16 20:19; Start 04/18/16 at 21:00 Lidocaine (Lidoderm) 1 patch DAILY TD Last administered on 04/19/16 08:21; Start 04/19/16 at 09:00 Oxcarbazepine (Trileptal) 150 mg BID PO Last administered on 04/19/16 08:18; Start 04/18/16 at 21:00 Active Scripts Active Reported Trazodone Hcl 50 Mg Tablet 50 Mg PO PRN QHS PRN Remeron (Mirtazapine) 15 Mg Tablet 7.5 Mg PO HS Klor-Con M20 (Potassium Chloride) 20 Meq Tab.er.prt 20 Meq PO DAILY Systane 0.3-0.4% Eye Drops (Propylene Glycol/Peg 400) 15 Ml Drops 1 Drop EACHEYE PRN PRN Nystatin 15 Gm Powder 1 Beba TP PRN PRN Lorazepam 1 Mg Tablet 1 Mg PO PRN Q8HRS PRN Anti-Diarrhea (Loperamide Hcl) 2 Mg Tablet 2 Mg PO PRN PRN Ibuprofen 200 Mg Capsule 200 Mg PO PRN Q6HRS PRN Benadryl (Diphenhydramine Hcl) 25 Mg Capsule 25 Mg PO PRN Q4HRS PRN Tylenol Extra Strength (Acetaminophen) 500 Mg Tablet 500 Mg PO QID Carbidopa-Levo Er 50-200 Tab (Carbidopa/Levodopa) 1 Each Tablet.er 1 Each PO QID Depakote (Divalproex Sodium) 250 Mg Tablet.dr 250 Mg PO BIDACLD Cetaphil Cream (Cetyl Alc/Stearyl Alc/Pg/Sls) 454 Gm Cream..g. 1 Beba TP BID Thera-M (Multivits, W-,Other Min) 1 Each Tablet 1 Each PO DAILY Dilantin (Phenytoin Sodium Extended) 100 Mg Capsule 300 Mg PO HS Escitalopram Oxalate 10 Mg Tablet 10 Mg PO DAILY Levothyroxine Sodium 100 Mcg Tablet 100 Mcg PO DAILYAC Ibuprofen 400 Mg Tablet 400 Mg PO HS [doxapin] 10 Mg HS Depakote (Divalproex Sodium) 500 Mg Tablet.dr 500 Mg PO DAILY Bisoprolol-Hctz 5-6.25 Mg Tab (Bisoprolol Fumarate/Hctz) 1 Each Tablet 1 Tab PO DAILYWSUP Children's Aspirin (Aspirin) 81 Mg Tab.chew 81 Mg PO DAILY Amantadine (Amantadine Hcl) 100 Mg Capsule 100 Mg PO DAILY Abilify (Aripiprazole) 10 Mg Tablet 10 Mg PO HS Aquaphor Healing Ointment (Mineral Oil/Hydrophil Petrolat) 50 Gm Oint...g. 1 Beba TP HS Diagnosis: Problems: (1) Bipolar disorder with psychotic features LOUANN ARCEO MD Apr 19, 2016 08:39
[2016-04-19 15:42] VITALS: BP 114/57
[2016-04-19] MEDS: ATENOLOL 50 MG TABLET PO SCH (17:16)
[2016-04-19] MEDS: HYDROCHLOROTHIAZIDE 25 MG TABLET PO SCH (17:17)
[2016-04-19] MEDS: PHENYTOIN SODIUM EXTENDED 100 MG CAPSULE PO SCH (20:31)
[2016-04-19] MEDS: ARIPIPRAZOLE 10 MG TABLET PO SCH (20:31)
[2016-04-19] MEDS: IBUPROFEN 400 MG TABLET. PO SCH (20:32)
[2016-04-19] MEDS: DOXEPIN HCL 10 MG CAPSULE PO SCH (20:34)
[2016-04-19] MEDS: MINERAL OIL/PETROLATUM TOPICAL CREAM 113GM JAR. TP SCH (20:34)
[2016-04-20] MEDS: LORAZEPAM 1 MG TABLET. PO PRN (02:33)
--- NOTE | 2016-04-20 03:57 | CONS ---
DATE OF CONSULTATION: 04/19/2016 NEUROLOGY CONSULTATION REFERRING PHYSICIAN: Ronni Dodd MD REASON FOR CONSULTATION: Seizure disorder and medication adjustment. HISTORY OF PRESENT ILLNESS: This is an 85-year-old right-handed white female who was admitted through Emergency Room on 04/17/2016 on account of aggressive behavior disturbances. The patient is a resident at [facility], presented to Emergency Room with a 2-week history of aggressive-behavior disturbances as the patient was hitting staff members, refusing her medications, having difficulty sleeping, and mood disturbances. A Neuro consult was requested because the patient on multiple anticonvulsant and desired to being on monotherapy. Monitor for her seizure disorder. The accuracy of her seizure is unknown. The patient described a sudden onset of mental status change with intermittent convulsions. The patient did not recall the event. She has not had seizures since admission. The patient denies headaches, visual disturbances, nausea, vomiting, chest pain, shortness of breath or palpitation. She does complain of chronic lower back pain and pain of the hips. PAST SURGICAL HISTORY: Significant for hypertension, hyperlipidemia, seizure disorders, and Parkinson disease. PAST PSYCHIATRIC HISTORY: Consistent with major depression, bipolar disorder and psychosis. FAMILY HISTORY: Not obtainable. ALLERGIES: AZITHROMYCIN AND PENICILLIN. CURRENT MEDICATIONS: Potassium chloride, lidocaine derm patches, carbamazepine 150 mg b.i.d., phenytoin 400 mg at bedtime, multivitamins, calcium, Depakote 500 mg daily and Depakote 250 mg b.i.d., Lexapro 10 mg daily, amantadine, sumatriptan 100 mg daily, levothyroxine 100 mg daily, doxepin 10 mg at bedtime, ibuprofen 400 mg at bedtime, Abilify 10 mg at bedtime, HydroDIURIL 6.25 mg daily, atenolol 50 mg daily, carbidopa/levodopa ER 50/200 q.i.d., Tylenol, Imodium 2 mg every 15 minutes p.r.n. for diarrhea, lorazepam 1 mg q 8 hours p.r.n. for anxiety, Benadryl 25 mg q 4 hours p.r.n. for itching, and Mylanta. REVIEW OF SYSTEMS: A 10-point review of system was performed and consistent with psychosis, dementia, depression, symptoms of parkinsonism include tremor and difficulty standing and walking, lower back pain, bilateral hip pain. PHYSICAL EXAMINATION: GENERAL: Well-developed, well-nourished white female, not in acute distress. VITAL SIGNS: She weighs 156 pounds. Blood pressure 114/57, respiratory rate 16, pulse 73 and regular, temperature 97.7, oxygen saturation 98% on room air. HEENT: Normocephalic, atraumatic, otherwise unremarkable. NECK: Supple. Negative for carotid bruit, lymphadenopathy, JVD or thyromegaly. LUNGS: Clear to A and P. CARDIOVASCULAR: Regular rate and rhythm, normal S1, S2. There is no S3, S4 or murmur. ABDOMEN: Soft. Bowel sounds positive. EXTREMITIES: Negative for cyanosis, clubbing or pitting edema. NEUROLOGICAL: 1. MENTAL STATUS: The patient is alert to herself and to place. She is disoriented to time. Speech is slow, but fluent. There is no obvious language dysfunction. Memory, judgment, and abstract thinking are fair. The patient denies hallucination or delusion. 2. CRANIAL NERVES: Visual munoz are full. The pupils are reactive to light and accommodation. Extraocular movements are intact. There is no nystagmus. There is no facial motor or sensory deficit. Hearing appears to be intact. The palate is elevated symmetrically. Sternocleidomastoid muscles are powerful bilaterally. The patient shrugs her shoulders symmetrically, protrudes her tongue in the midline without fasciculation or atrophy. 3. MOTOR EXAMINATION: No focal muscle bulk was seen. The tone is slightly increased in the lower extremities. The strength is 4/5 throughout. Sensory examination is good. Very mild tremor at rest was noted. 4. SENSORY EXAMINATION: Normal pinprick and light touch senses throughout. 5. DEEP TENDON REFLEXES: Symmetric and hypoactive with absent Achilles responses. 6. GAIT: The stance is unsteady. LABORATORY DATA: CBC revealed white blood cells of 6.1 thousand, hemoglobin 12.6, hematocrit 37.5, and platelet count 207,000. Chemistry revealed sodium of 144, potassium 3.7, chloride 104, CO2 is 31, BUN 20, creatinine 0.7, glucose is 87, and calcium is 8.3. Liver enzymes are normal, except for low ALT, alkaline phosphatase is high at 122 with high triglycerides at 168 and cholesterol 233 with normal HDL, low vitamin D, and high TSH at 8.1 with normal free T4 and levothyroxine. Urinalysis, no evidence of urinary tract infections. Toxicology, phenytoin level is low at 4.9. Valproic acid is 8. RPR is negative. DIAGNOSTIC STUDIES: Pelvic CT scan revealed degenerative arthrosis with a changes of the lumbar spine. Pelvic x-ray revealed evidence of no fracture of the hip and x-ray of the right ribs revealed no ribs fracture. IMPRESSION: 1. History of seizure disorder of unknown etiology. The patient has been on a Trileptal, phenytoin, which is leveled currently subtherapeutic. 2. Parkinson disease. 3. Multiple medical problems includes hypertension, hypothyroidism, vitamin D deficiency. 4. Multiple psychiatric problems including depression, possible suspicion bipolar, and dementia. 5. Lower back pain and hip pain. RECOMMENDATIONS: 1. Obtain EEG. 2. As current phenytoin level is subtherapeutic, therefore, we will taper phenytoin gradually over 2 weeks. 3. We will continue with Trileptal and probably tapered off slowly if the EEG is normal. 4. Continue with current management initiated by Dr. Palmer and Dr. Dodd. 5. Physical therapy as tolerated. M Mis SIDHU MD DR: KIRSTEN/brandie JOB#: [id number] / [id number]
[2016-04-20] MEDS: LEVOTHYROXINE 100 MCG TABLET PO SCH (05:58)
[2016-04-20 06:19] VITALS: BP 143/52
[2016-04-20] MEDS: MULTIVITAMIN with MINERAL TABLET. PO SCH (09:05)
[2016-04-20] MEDS: DIVALPROEX SODIUM 250 MG TABLET.DR. PO SCH ×3 (09:05→16:26)
[2016-04-20] MEDS: CARBIDOPA/LEVODOPA CR 50/200MG TABLET.SA PO SCH ×4 (09:05→20:12)
[2016-04-20] MEDS: AMANTADINE HCL 100 MG CAPSULE PO SCH (09:05)
[2016-04-20] MEDS: ESCITALOPRAM 10 MG TABLET. PO SCH (09:05)
[2016-04-20] MEDS: OXcarbazepine 150 MG TABLET. PO SCH ×2 (09:05→20:12)
[2016-04-20] MEDS: ACETAMINOPHEN 500 MG TABLET PO SCH ×4 (09:05→20:23)
[2016-04-20] MEDS: ASPIRIN 81 MG TAB.CHEW PO SCH (09:05)
[2016-04-20] MEDS: POTASSIUM CHLORIDE 20 MEQ TABLET.ER. PO SCH (09:09)
[2016-04-20] MEDS: LIDOCAINE (700MG/PATCH) PATCH. TD SCH (09:09)
[2016-04-20] MEDS: CETAPHIL TP SCH ×2 (09:10→20:20)
--- NOTE | 2016-04-20 13:25 | PN ---
DATE: 04/18/2016 This is a late entry for 04/18/2016, covers elements not covered in my initial note. SUBJECTIVE: The patient is anxious in the morning, wanting to leave, hallucinating, said she raised her hand and stopped a pack of Dobermans running at her. She is able to state she is in a "mental institution." REVIEW OF SYSTEMS: Ambulation impaired. No CV, , pulmonary, eye, ENT system symptoms on review. MENTAL STATUS EXAM: Hard of hearing, oriented to herself and situation. Speech coherent, has some pressure, abstraction fair, computation impaired, language function intact, attention span short. Mood and affect remain somewhat labile. LABORATORY DATA: Reviewed. IMPRESSION: Bipolar 1 disorder, mixed with psychotic features; anxiety disorder, unspecified; impulse control disorder, unspecified; cognitive disorder, unspecified. PLAN: Start Trileptal 150 mg twice a day as a mood stabilizer. Maintain Remeron 7.5 at bedtime, trazodone p.r.n. Adjust further as clinically indicated. LOUANN ARCEO MD DR: BETSY/brandie JOB#: [id number] / [id number]
--- NOTE | 2016-04-20 13:29 | PN ---
DATE: 04/19/2016 PSYCHIATRIC PROGRESS NOTE This is a late entry 04/19/2016, covers elements not covered in my initial note. SUBJECTIVE: The patient was staffed at treatment team meeting with entire team morning of 04/19/2016. Seen individually evening of 04/19/2016. Appetite about 60%, sleeping about 6 hours, quite hard of hearing. Ambulation impaired, in a wheelchair. No CV, , pulmonary, eye system symptoms on review. The patient remains somewhat paranoid, suspicious, overly latter-day. Family revealed that she has a long history of depression in an assisted living, had a grand mal seizure 13 years ago, recent stresses where her sister last July. She states she was for 15 years, gets confused, actually was about 30 years. We will ask for past psychiatric records from her last hospitalization. REVIEW OF SYSTEMS: Ambulation impaired, hard of hearing. No CV, , pulmonary, eye system symptoms on review. MENTAL STATUS EXAM: Oriented to herself and situation. Speech coherent, abstraction fair, computation impaired, language function intact, attention span short. Mood and affect somewhat grandiose at times. LABORATORY DATA: Reviewed. IMPRESSION: Bipolar 1 disorder, mixed with psychotic features; cognitive disorder, unspecified. PLAN: Continue Trileptal 150 twice a day, trazodone along with Remeron 7.5 mg at bedtime. Adjust further as clinically indicated. MAN Mary ARCEO MD DR: BETSY/brandie JOB#: [id number] / [id number]
--- NOTE | 2016-04-20 13:31 | PN ---
DATE: 04/20/2016 PSYCHIATRIC PROGRESS NOTE This note is written to supplement my prior note on the patient. The patient has a history of seizure disorder, on Dilantin. Will have a Neurology consult with Dr. Ribera, who has ordered an EEG to see whether she could be treated on Depakote, which might help her mood lability as well in place of the Dilantin and Trileptal for her seizures. I will defer this decision to Dr. Ribera. MAN Mary ARCEO MD DR: BETSY/brandie JOB#: [id number] / [id number]
[2016-04-20 16:21] VITALS: BP 110/70
[2016-04-20] MEDS: ATENOLOL 50 MG TABLET PO SCH (16:21)
[2016-04-20] MEDS: HYDROCHLOROTHIAZIDE 25 MG TABLET PO SCH (16:21)
[2016-04-20] MEDS: ARIPIPRAZOLE 10 MG TABLET PO SCH (20:12)
[2016-04-20] MEDS: DOXEPIN HCL 10 MG CAPSULE PO SCH (20:13)
[2016-04-20] MEDS: IBUPROFEN 400 MG TABLET. PO SCH (20:13)
[2016-04-20] MEDS: MIRTAZAPINE 7.5 MG TABLET. PO SCH (20:14)
[2016-04-20] MEDS: MINERAL OIL/PETROLATUM TOPICAL CREAM 113GM JAR. TP SCH (20:20)
--- NOTE | 2016-04-20 20:20 | PDOC ---
Exam Andrea Demential Exam: Andrea Note: Please also refer to the separate dictated note~for this date of service dictated separately.~Patient seen individually. Discussed the patient with Nursing staff reviewed the chart.~Reviewed interim history and current functioning. Reviewed vital signs,~Labs/ Radiology~and current medications noted below. Continue current treatment with the changes noted in the dictated addendum note Assessment: Vital Signs: Vital Signs Date Time Temp Pulse Resp B/P Pulse Ox O2 Delivery O2 Flow Rate FiO2 04/20/16 16:21 97.8 60 18 110/70 98 04/20/16 06:19 Room Air I&O Intake and Output 04/20/16 07:00 Intake Total 1080 ml Balance 1080 ml Intake Oral 1080 ml # Bowel Movements 2 Current Medications: Meds: Current Medications Potassium Chloride (KCl Oral Soln) 40 meq 1X ONCE PO Last administered on 04/17 13:12; Start 04/17/16 at 13:00; Stop 04/17/16 at 13:01; Status DC Acetaminophen (Tylenol) 650 mg PRN Q6HRS PRN PO PAIN / TEMP; Start 04/17/16 at 14:15; Status Cancel Potassium Chloride (Klor-Con) 20 meq BID66 PO Last administered on 04/19/16 05: 52; Start 04/17/16 at 18:00; Stop 04/19/16 at 07:00; Status DC Acetaminophen (Tylenol) 650 mg PRN Q6HRS PRN PO PAIN / TEMP; Start 04/17/16 at 15:30 Multi-Ingredient Ointment (Analgesic [place]) 1 beba PRN QID PRN TP MUSCLE PAIN; Start 04/17/16 at 15:30 Al Hydroxide/Mg Hydroxide (Mylanta Plus Xs) 15 ml PRN AFTMEALHC PRN PO DYSPEPSIA; Start 04/17/16 at 15:30 Magnesium Hydroxide (Milk Of Magnesia) 2,400 mg PRN QHS PRN PO CONSTIPATION; Start 04/17/16 at 15:30 Acetaminophen (Tylenol) 500 mg QID PO Last administered on 04/20/16 16:21; Start 04/17/16 at 17:00 Amantadine HCl (Symmetrel) 100 mg DAILY PO Last administered on 04/20/16 09:05 ; Start 04/18/16 at 09:00 Aripiprazole (Abilify) 10 mg HS PO Last administered on 04/20/16 20:12; Start 04/17/16 at 21:00 Aspirin (Children'S Aspirin) 81 mg DAILY PO Last administered on 04/20/16 09:05 ; Start 04/18/16 at 09:00 Bisoprolol Fumarate (Ziac 5-6.25) 1 tab DAILYWSUP PO ; Start 04/17/16 at 17:00; Stop 04/17/16 at 17:00; Status DC Carbidopa/Levodopa (Sinemet Cr) 1 tab.sa QID PO Last administered on 04/20/16 20:12; Start 04/17/16 at 17:00 Diphenhydramine HCl (Benadryl) 25 mg PRN Q4HRS PRN PO ITCHING; Start 04/17/16 at 15:30 Divalproex Sodium (Depakote) 250 mg BIDACLD PO Last administered on 04/20/16 16 :26; Start 04/17/16 at 16:30 Escitalopram Oxalate (Lexapro) 10 mg DAILY PO Last administered on 04/20/16 09: 05; Start 04/18/16 at 09:00 Ibuprofen (Motrin) 400 mg HS PO Last administered on 04/20/16 20:13; Start at 21:00 Levothyroxine Sodium (Synthroid) 100 mcg DAILY06 PO Last administered on 05:58; Start 04/18/16 at 06:00 Lorazepam (Ativan) 1 mg PRN Q8HRS PRN PO ANXIETY / AGITATION Last administered on 04/20/16 02:33; Start 04/17/16 at 15:30 Nystatin (Nystop) 1 beba PRN TID PRN TP ITCHING; Start 04/17/16 at 15:30 Phenytoin Sodium (Dilantin) 300 mg HS PO Last administered on 04/17/16 20:31; Start 04/17/16 at 21:00; Stop 04/18/16 at 16:28; Status DC Potassium Chloride (Klor-Con) 20 meq DAILY PO ; Start 04/18/16 at 09:00; Stop 04/18/16 at 09:00; Status DC Polyethyl Glycol/ Propylene Glycol (Systane 0.3-0.4% Oph) 1 drop PRN QID PRN OU DRY EYE; Start 04/17/16 at 15:30 Multi-Ingredient Lotion (Cetaphil Moisturizing Lotion) 1 beba BID TP Last administered on 04/17/16 20:32; Start 04/17/16 at 21:00; Stop 04/18/16 at 15:18 ; Status DC Divalproex Sodium (Depakote) 500 mg DAILY PO Last administered on 04/20/16 09: 05; Start 04/18/16 at 09:00 Ibuprofen (Motrin) 200 mg PRN Q6HRS PRN PO PAIN; Start 04/17/16 at 15:45 Loperamide HCl (Imodium) 2 mg PRN Q15MIN PRN PO DIARRHEA; Start 04/17/16 at 15: 45 Multi-Ingred Cream/Lotion/Oil/ Oint (Hydrocerin) 1 beba QHS TP Last administered on 04/17/16 20:33; Start 04/17/16 at 15:45; Stop 04/18/16 at 15:17 ; Status DC Multivitamins/ Calcium (Thera-M Plus) 1 tab DAILY PO Last administered on 09:05; Start 04/18/16 at 09:00 Doxepin HCl (Sinequan) 10 mg QHS PO Last administered on 04/20/16 20:13; Start 04/17/16 at 21:00 Atenolol (Tenormin) 50 mg DAILYWSUP PO Last administered on 04/20/16 16:21; Start 04/17/16 at 17:00 Hydrochlorothiazide (Hydrodiuril) 6.25 mg DAILYWSUP PO Last administered on 04/20 16:21; Start 04/17/16 at 17:00 Potassium Chloride (Klor-Con) 20 meq DAILY PO Last administered on 04/20/16 09: 09; Start 04/20/16 at 09:00 Multi-Ingred Cream/Lotion/Oil/ Oint (Hydrocerin) 1 beba QHS TP Last administered on 04/19/16 20:34; Start 04/18/16 at 15:17 Multi-Ingredient Lotion (Cetaphil Moisturizing Lotion) 1 beba BID TP Last administered on 04/20/16 09:10; Start 04/18/16 at 15:18 Phenytoin Sodium (Dilantin) 400 mg HS PO Last administered on 04/19/16 20:31; Start 04/18/16 at 21:00; Stop 04/20/16 at 09:25; Status DC Lidocaine (Lidoderm) 1 patch DAILY TD Last administered on 04/20/16 09:09; Start 04/19/16 at 09:00 Oxcarbazepine (Trileptal) 150 mg BID PO Last administered on 04/20/16 20:12; Start 04/18/16 at 21:00 Mirtazapine (Remeron) 7.5 mg QHS PO Last administered on 04/20/16 20:14; Start 04/20/16 at 21:00 Active Scripts Active Reported Trazodone Hcl 50 Mg Tablet 50 Mg PO PRN QHS PRN Remeron (Mirtazapine) 15 Mg Tablet 7.5 Mg PO HS Klor-Con M20 (Potassium Chloride) 20 Meq Tab.er.prt 20 Meq PO DAILY Systane 0.3-0.4% Eye Drops (Propylene Glycol/Peg 400) 15 Ml Drops 1 Drop EACHEYE PRN PRN Nystatin 15 Gm Powder 1 Beba TP PRN PRN Lorazepam 1 Mg Tablet 1 Mg PO PRN Q8HRS PRN Anti-Diarrhea (Loperamide Hcl) 2 Mg Tablet 2 Mg PO PRN PRN Ibuprofen 200 Mg Capsule 200 Mg PO PRN Q6HRS PRN Benadryl (Diphenhydramine Hcl) 25 Mg Capsule 25 Mg PO PRN Q4HRS PRN Tylenol Extra Strength (Acetaminophen) 500 Mg Tablet 500 Mg PO QID Carbidopa-Levo Er 50-200 Tab (Carbidopa/Levodopa) 1 Each Tablet.er 1 Each PO QID Depakote (Divalproex Sodium) 250 Mg Tablet.dr 250 Mg PO BIDACLD Cetaphil Cream (Cetyl Alc/Stearyl Alc/Pg/Sls) 454 Gm Cream..g. 1 Beba TP BID Thera-M (Multivits,Th W-Fe,Other Min) 1 Each Tablet 1 Each PO DAILY Dilantin (Phenytoin Sodium Extended) 100 Mg Capsule 300 Mg PO HS Escitalopram Oxalate 10 Mg Tablet 10 Mg PO DAILY Levothyroxine Sodium 100 Mcg Tablet 100 Mcg PO DAILYAC Ibuprofen 400 Mg Tablet 400 Mg PO HS [doxapin] 10 Mg HS Depakote (Divalproex Sodium) 500 Mg Tablet.dr 500 Mg PO DAILY Bisoprolol-Hctz 5-6.25 Mg Tab (Bisoprolol Fumarate/Hctz) 1 Each Tablet 1 Tab PO DAILYWSUP Children's Aspirin (Aspirin) 81 Mg Tab.chew 81 Mg PO DAILY Amantadine (Amantadine Hcl) 100 Mg Capsule 100 Mg PO DAILY Abilify (Aripiprazole) 10 Mg Tablet 10 Mg PO HS Aquaphor Healing Ointment (Mineral Oil/Hydrophil Petrolat) 50 Gm Oint...g. 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
[2016-04-21] MEDS: LORAZEPAM 1 MG TABLET. PO PRN ×2 (03:19→20:30)
[2016-04-21] MEDS: LEVOTHYROXINE 100 MCG TABLET PO SCH (06:20)
[2016-04-21 06:30] VITALS: BP 153/76
--- NOTE | 2016-04-21 08:10 | PDOC ---
Exam Andrea Demential Exam: Andrea Note: Please also refer to the separate dictated note~for this date of service dictated separately.~Patient seen individually. Discussed the patient with Nursing staff reviewed the chart.~Reviewed interim history and current functioning. Reviewed vital signs,~Labs/ Radiology~and current medications noted below. Continue current treatment with the changes noted in the dictated addendum note Assessment: Vital Signs: Vital Signs Date Time Temp Pulse Resp B/P Pulse Ox O2 Delivery O2 Flow Rate FiO2 04/21/16 06:30 97.7 66 18 153/76 99 04/20/16 06:19 Room Air I&O Intake and Output 04/21/16 07:00 Intake Total 720 ml Balance 720 ml Intake Oral 720 ml # Bowel Movements 1 Current Medications: Meds: Current Medications Potassium Chloride (KCl Oral Soln) 40 meq 1X ONCE PO Last administered on 04/17 13:12; Start 04/17/16 at 13:00; Stop 04/17/16 at 13:01; Status DC Acetaminophen (Tylenol) 650 mg PRN Q6HRS PRN PO PAIN / TEMP; Start 04/17/16 at 14:15; Status Cancel Potassium Chloride (Klor-Con) 20 meq BID66 PO Last administered on 04/19/16 05: 52; Start 04/17/16 at 18:00; Stop 04/19/16 at 07:00; Status DC Acetaminophen (Tylenol) 650 mg PRN Q6HRS PRN PO PAIN / TEMP; Start 04/17/16 at 15:30 Multi-Ingredient Ointment (Analgesic [place]) 1 beba PRN QID PRN TP MUSCLE PAIN; Start 04/17/16 at 15:30 Al Hydroxide/Mg Hydroxide (Mylanta Plus Xs) 15 ml PRN AFTMEALHC PRN PO DYSPEPSIA; Start 04/17/16 at 15:30 Magnesium Hydroxide (Milk Of Magnesia) 2,400 mg PRN QHS PRN PO CONSTIPATION; Start 04/17/16 at 15:30 Acetaminophen (Tylenol) 500 mg QID PO Last administered on 04/20/16 16:21; Start 04/17/16 at 17:00 Amantadine HCl (Symmetrel) 100 mg DAILY PO Last administered on 04/20/16 09:05 ; Start 04/18/16 at 09:00 Aripiprazole (Abilify) 10 mg HS PO Last administered on 04/20/16 20:12; Start 04/17/16 at 21:00 Aspirin (Children'S Aspirin) 81 mg DAILY PO Last administered on 04/20/16 09:05 ; Start 04/18/16 at 09:00 Bisoprolol Fumarate (Ziac 5-6.25) 1 tab DAILYWSUP PO ; Start 04/17/16 at 17:00; Stop 04/17/16 at 17:00; Status DC Carbidopa/Levodopa (Sinemet Cr) 1 tab.sa QID PO Last administered on 04/20/16 20:12; Start 04/17/16 at 17:00 Diphenhydramine HCl (Benadryl) 25 mg PRN Q4HRS PRN PO ITCHING; Start 04/17/16 at 15:30 Divalproex Sodium (Depakote) 250 mg BIDACLD PO Last administered on 04/20/16 16 :26; Start 04/17/16 at 16:30 Escitalopram Oxalate (Lexapro) 10 mg DAILY PO Last administered on 04/20/16 09: 05; Start 04/18/16 at 09:00 Ibuprofen (Motrin) 400 mg HS PO Last administered on 04/20/16 20:13; Start at 21:00 Levothyroxine Sodium (Synthroid) 100 mcg DAILY06 PO Last administered on 06:20; Start 04/18/16 at 06:00 Lorazepam (Ativan) 1 mg PRN Q8HRS PRN PO ANXIETY / AGITATION Last administered on 04/21/16 03:19; Start 04/17/16 at 15:30 Nystatin (Nystop) 1 beba PRN TID PRN TP ITCHING; Start 04/17/16 at 15:30 Phenytoin Sodium (Dilantin) 300 mg HS PO Last administered on 04/17/16 20:31; Start 04/17/16 at 21:00; Stop 04/18/16 at 16:28; Status DC Potassium Chloride (Klor-Con) 20 meq DAILY PO ; Start 04/18/16 at 09:00; Stop 04/18/16 at 09:00; Status DC Polyethyl Glycol/ Propylene Glycol (Systane 0.3-0.4% Oph) 1 drop PRN QID PRN OU DRY EYE; Start 04/17/16 at 15:30 Multi-Ingredient Lotion (Cetaphil Moisturizing Lotion) 1 beba BID TP Last administered on 04/17/16 20:32; Start 04/17/16 at 21:00; Stop 04/18/16 at 15:18 ; Status DC Divalproex Sodium (Depakote) 500 mg DAILY PO Last administered on 04/20/16 09: 05; Start 04/18/16 at 09:00 Ibuprofen (Motrin) 200 mg PRN Q6HRS PRN PO PAIN; Start 04/17/16 at 15:45 Loperamide HCl (Imodium) 2 mg PRN Q15MIN PRN PO DIARRHEA; Start 04/17/16 at 15: 45 Multi-Ingred Cream/Lotion/Oil/ Oint (Hydrocerin) 1 beba QHS TP Last administered on 04/17/16 20:33; Start 04/17/16 at 15:45; Stop 04/18/16 at 15:17 ; Status DC Multivitamins/ Calcium (Thera-M Plus) 1 tab DAILY PO Last administered on 09:05; Start 04/18/16 at 09:00 Doxepin HCl (Sinequan) 10 mg QHS PO Last administered on 04/20/16 20:13; Start 04/17/16 at 21:00 Atenolol (Tenormin) 50 mg DAILYWSUP PO Last administered on 04/20/16 16:21; Start 04/17/16 at 17:00 Hydrochlorothiazide (Hydrodiuril) 6.25 mg DAILYWSUP PO Last administered on 04/20 16:21; Start 04/17/16 at 17:00 Potassium Chloride (Klor-Con) 20 meq DAILY PO Last administered on 04/20/16 09: 09; Start 04/20/16 at 09:00 Multi-Ingred Cream/Lotion/Oil/ Oint (Hydrocerin) 1 beba QHS TP Last administered on 04/20/16 20:20; Start 04/18/16 at 15:17 Multi-Ingredient Lotion (Cetaphil Moisturizing Lotion) 1 beba BID TP Last administered on 04/20/16 20:20; Start 04/18/16 at 15:18 Phenytoin Sodium (Dilantin) 400 mg HS PO Last administered on 04/19/16 20:31; Start 04/18/16 at 21:00; Stop 04/20/16 at 09:25; Status DC Lidocaine (Lidoderm) 1 patch DAILY TD Last administered on 04/20/16 09:09; Start 04/19/16 at 09:00 Oxcarbazepine (Trileptal) 150 mg BID PO Last administered on 04/20/16 20:12; Start 04/18/16 at 21:00 Mirtazapine (Remeron) 7.5 mg QHS PO Last administered on 04/20/16 20:14; Start 04/20/16 at 21:00 Active Scripts Active Reported Trazodone Hcl 50 Mg Tablet 50 Mg PO PRN QHS PRN Remeron (Mirtazapine) 15 Mg Tablet 7.5 Mg PO HS Klor-Con M20 (Potassium Chloride) 20 Meq Tab.er.prt 20 Meq PO DAILY Systane 0.3-0.4% Eye Drops (Propylene Glycol/Peg 400) 15 Ml Drops 1 Drop EACHEYE PRN PRN Nystatin 15 Gm Powder 1 Beba TP PRN PRN Lorazepam 1 Mg Tablet 1 Mg PO PRN Q8HRS PRN Anti-Diarrhea (Loperamide Hcl) 2 Mg Tablet 2 Mg PO PRN PRN Ibuprofen 200 Mg Capsule 200 Mg PO PRN Q6HRS PRN Benadryl (Diphenhydramine Hcl) 25 Mg Capsule 25 Mg PO PRN Q4HRS PRN Tylenol Extra Strength (Acetaminophen) 500 Mg Tablet 500 Mg PO QID Carbidopa-Levo Er 50-200 Tab (Carbidopa/Levodopa) 1 Each Tablet.er 1 Each PO QID Depakote (Divalproex Sodium) 250 Mg Tablet.dr 250 Mg PO BIDACLD Cetaphil Cream (Cetyl Alc/Stearyl Alc/Pg/Sls) 454 Gm Cream..g. 1 Beba TP BID Thera-M (Multivits,Th W-Fe,Other Min) 1 Each Tablet 1 Each PO DAILY Dilantin (Phenytoin Sodium Extended) 100 Mg Capsule 300 Mg PO HS Escitalopram Oxalate 10 Mg Tablet 10 Mg PO DAILY Levothyroxine Sodium 100 Mcg Tablet 100 Mcg PO DAILYAC Ibuprofen 400 Mg Tablet 400 Mg PO HS [doxapin] 10 Mg HS Depakote (Divalproex Sodium) 500 Mg Tablet.dr 500 Mg PO DAILY Bisoprolol-Hctz 5-6.25 Mg Tab (Bisoprolol Fumarate/Hctz) 1 Each Tablet 1 Tab PO DAILYWSUP Children's Aspirin (Aspirin) 81 Mg Tab.chew 81 Mg PO DAILY Amantadine (Amantadine Hcl) 100 Mg Capsule 100 Mg PO DAILY Abilify (Aripiprazole) 10 Mg Tablet 10 Mg PO HS Aquaphor Healing Ointment (Mineral Oil/Hydrophil Petrolat) 50 Gm Oint...g. 1 Beba TP HS Diagnosis: Problems: (1) Bipolar disorder with psychotic features (2) Bipolar affective, mixed (3) Anxiety disorder (4) Dementia in Alzheimer's disease with delusions (5) Dementia in Alzheimer's disease with depression (6) Impulse control disorder LOUANN ARCEO MD Apr 21, 2016 08:10
[2016-04-21] MEDS: ESCITALOPRAM 10 MG TABLET. PO SCH (08:37)
[2016-04-21] MEDS: AMANTADINE HCL 100 MG CAPSULE PO SCH (08:37)
[2016-04-21] MEDS: ACETAMINOPHEN 500 MG TABLET PO SCH ×5 (08:37→21:00)
[2016-04-21] MEDS: MULTIVITAMIN with MINERAL TABLET. PO SCH (08:38)
[2016-04-21] MEDS: ASPIRIN 81 MG TAB.CHEW PO SCH (08:38)
[2016-04-21] MEDS: CARBIDOPA/LEVODOPA CR 50/200MG TABLET.SA PO SCH ×5 (08:39→21:00)
[2016-04-21] MEDS: DIVALPROEX SODIUM 250 MG TABLET.DR. PO SCH ×3 (08:39→16:26)
[2016-04-21] MEDS: POTASSIUM CHLORIDE 20 MEQ TABLET.ER. PO SCH (08:39)
[2016-04-21] MEDS: OXcarbazepine 150 MG TABLET. PO SCH (08:39)
[2016-04-21] MEDS: LIDOCAINE (700MG/PATCH) PATCH. TD SCH (08:40)
[2016-04-21] MEDS: CETAPHIL TP SCH ×3 (08:40→21:43)
[2016-04-21 15:45] VITALS: BP 113/81
[2016-04-21] MEDS: HYDROCHLOROTHIAZIDE 25 MG TABLET PO SCH (16:26)
[2016-04-21] MEDS: ATENOLOL 50 MG TABLET PO SCH (16:26)
[2016-04-21] MEDS: ARIPIPRAZOLE 10 MG TABLET PO SCH ×2 (20:26→21:00)
[2016-04-21] MEDS: MIRTAZAPINE 7.5 MG TABLET. PO SCH ×2 (20:27→21:00)
[2016-04-21] MEDS: IBUPROFEN 400 MG TABLET. PO SCH ×2 (20:27→21:54)
[2016-04-21] MEDS: DOXEPIN HCL 10 MG CAPSULE PO SCH ×2 (20:30→21:00)
[2016-04-21] MEDS: MINERAL OIL/PETROLATUM TOPICAL CREAM 113GM JAR. TP SCH ×2 (20:31→21:00)
--- NOTE | 2016-04-21 23:05 | PN ---
DATE: 04/20/2016 PSYCHIATRIC PROGRESS NOTE This is a late entry for 04/20/2016, covers elements not covered in my initial note. SUBJECTIVE: Per nursing report, the patient has been paranoid, psychotic, stating there are evil people around her. EEG is being done. Dilantin was held, and she has been up since 02:30 in the morning, wanting to stay in bed all day. REVIEW OF SYSTEMS: Ambulation impaired, in her wheelchair. No CV, , pulmonary, eye, ENT system symptoms on review. MENTAL STATUS EXAM: Oriented to herself and situation. Speech coherent. Abstraction fair. Computation impaired. Language function intact. Attention span short. Mood and affect remained somewhat labile. LABORATORY DATA: Labs reviewed. IMPRESSION: Bipolar 1 disorder, mixed with psychotic features, in partial remission; anxiety disorder, unspecified; cognitive disorder, unspecified. PLAN: Maintain Trileptal 150 [address] 500 in the morning, 250 b.i.d.; Abilify 10 mg a day; Ativan and Benadryl p.r.n.; Remeron 7.5 at bedtime. We will defer to Dr. Ribera whether the Dilantin and Trileptal can be changed to Depakote as a mood stabilizer and for her seizure disorder. MAN Mary ARCEO MD DR: BETSY/brandie JOB#: [id number] / [id number]
[2016-04-22] MEDS: LEVOTHYROXINE 100 MCG TABLET PO SCH (05:17)
[2016-04-22 06:24] VITALS: BP 165/84
[2016-04-22 08:39] LABS: VAL ACID 13 mcg/mL (50-100)
--- NOTE | 2016-04-22 08:42 | PDOC ---
Exam Andrea Demential Exam: Andrea Note: Please also refer to the separate dictated note~for this date of service dictated separately.~Patient seen individually. Discussed the patient with Nursing staff reviewed the chart.~Reviewed interim history and current functioning. Reviewed vital signs,~Labs/ Radiology~and current medications noted below. Continue current treatment with the changes noted in the dictated addendum note Assessment: Vital Signs: Vital Signs Date Time Temp Pulse Resp B/P Pulse Ox O2 Delivery O2 Flow Rate FiO2 04/22/16 06:24 97.7 82 22 165/84 96 04/20/16 06:19 Room Air I&O Intake and Output 04/22/16 07:00 Intake Total 720 ml Balance 720 ml Intake Oral 720 ml Labs: Laboratory Tests Test 04/22/16 08:05 Valproic Acid Level 13mcg/mL (50-100) L Valproic Acid Last Dose Date 04/21/16 Valproic Acid Last Dose Time 2100 Current Medications: Meds: Current Medications Potassium Chloride (KCl Oral Soln) 40 meq 1X ONCE PO Last administered on 04/17 13:12; Start 04/17/16 at 13:00; Stop 04/17/16 at 13:01; Status DC Acetaminophen (Tylenol) 650 mg PRN Q6HRS PRN PO PAIN / TEMP; Start 04/17/16 at 14:15; Status Cancel Potassium Chloride (Klor-Con) 20 meq BID66 PO Last administered on 04/19/16 05: 52; Start 04/17/16 at 18:00; Stop 04/19/16 at 07:00; Status DC Acetaminophen (Tylenol) 650 mg PRN Q6HRS PRN PO PAIN / TEMP; Start 04/17/16 at 15:30 Multi-Ingredient Ointment (Analgesic [place]) 1 beba PRN QID PRN TP MUSCLE PAIN; Start 04/17/16 at 15:30 Al Hydroxide/Mg Hydroxide (Mylanta Plus Xs) 15 ml PRN AFTMEALHC PRN PO DYSPEPSIA; Start 04/17/16 at 15:30 Magnesium Hydroxide (Milk Of Magnesia) 2,400 mg PRN QHS PRN PO CONSTIPATION; Start 04/17/16 at 15:30 Acetaminophen (Tylenol) 500 mg QID PO Last administered on 04/21/16 16:26; Start 04/17/16 at 17:00 Amantadine HCl (Symmetrel) 100 mg DAILY PO Last administered on 04/21/16 08:37 ; Start 04/18/16 at 09:00 Aripiprazole (Abilify) 10 mg HS PO Last administered on 04/20/16 20:12; Start 04/17/16 at 21:00 Aspirin (Children'S Aspirin) 81 mg DAILY PO Last administered on 04/21/16 08:38 ; Start 04/18/16 at 09:00 Bisoprolol Fumarate (Ziac 5-6.25) 1 tab DAILYWSUP PO ; Start 04/17/16 at 17:00; Stop 04/17/16 at 17:00; Status DC Carbidopa/Levodopa (Sinemet Cr) 1 tab.sa QID PO Last administered on 04/21/16 21:00; Start 04/17/16 at 17:00 Diphenhydramine HCl (Benadryl) 25 mg PRN Q4HRS PRN PO ITCHING; Start 04/17/16 at 15:30 Divalproex Sodium (Depakote) 250 mg BIDACLD PO Last administered on 04/21/16 16 :26; Start 04/17/16 at 16:30 Escitalopram Oxalate (Lexapro) 10 mg DAILY PO Last administered on 04/21/16 08: 37; Start 04/18/16 at 09:00 Ibuprofen (Motrin) 400 mg HS PO Last administered on 04/21/16 20:27; Start at 21:00 Levothyroxine Sodium (Synthroid) 100 mcg DAILY06 PO Last administered on 05:17; Start 04/18/16 at 06:00 Lorazepam (Ativan) 1 mg PRN Q8HRS PRN PO ANXIETY / AGITATION Last administered on 04/21/16 20:30; Start 04/17/16 at 15:30 Nystatin (Nystop) 1 beba PRN TID PRN TP ITCHING; Start 04/17/16 at 15:30 Phenytoin Sodium (Dilantin) 300 mg HS PO Last administered on 04/17/16 20:31; Start 04/17/16 at 21:00; Stop 04/18/16 at 16:28; Status DC Potassium Chloride (Klor-Con) 20 meq DAILY PO ; Start 04/18/16 at 09:00; Stop 04/18/16 at 09:00; Status DC Polyethyl Glycol/ Propylene Glycol (Systane 0.3-0.4% Oph) 1 drop PRN QID PRN OU DRY EYE; Start 04/17/16 at 15:30 Multi-Ingredient Lotion (Cetaphil Moisturizing Lotion) 1 beba BID TP Last administered on 04/17/16 20:32; Start 04/17/16 at 21:00; Stop 04/18/16 at 15:18 ; Status DC Divalproex Sodium (Depakote) 500 mg DAILY PO Last administered on 04/21/16 08: 39; Start 04/18/16 at 09:00 Ibuprofen (Motrin) 200 mg PRN Q6HRS PRN PO PAIN; Start 04/17/16 at 15:45 Loperamide HCl (Imodium) 2 mg PRN Q15MIN PRN PO DIARRHEA; Start 04/17/16 at 15: 45 Multi-Ingred Cream/Lotion/Oil/ Oint (Hydrocerin) 1 beba QHS TP Last administered on 04/17/16 20:33; Start 04/17/16 at 15:45; Stop 04/18/16 at 15:17 ; Status DC Multivitamins/ Calcium (Thera-M Plus) 1 tab DAILY PO Last administered on 08:38; Start 04/18/16 at 09:00 Doxepin HCl (Sinequan) 10 mg QHS PO Last administered on 04/20/16 20:13; Start 04/17/16 at 21:00 Atenolol (Tenormin) 50 mg DAILYWSUP PO Last administered on 04/21/16 16:26; Start 04/17/16 at 17:00 Hydrochlorothiazide (Hydrodiuril) 6.25 mg DAILYWSUP PO Last administered on 04/21 16:26; Start 04/17/16 at 17:00 Potassium Chloride (Klor-Con) 20 meq DAILY PO Last administered on 04/21/16 08: 39; Start 04/20/16 at 09:00 Multi-Ingred Cream/Lotion/Oil/ Oint (Hydrocerin) 1 beba QHS TP Last administered on 04/20/16 20:20; Start 04/18/16 at 15:17 Multi-Ingredient Lotion (Cetaphil Moisturizing Lotion) 1 beba BID TP Last administered on 04/21/16 08:40; Start 04/18/16 at 15:18 Phenytoin Sodium (Dilantin) 400 mg HS PO Last administered on 04/19/16 20:31; Start 04/18/16 at 21:00; Stop 04/20/16 at 09:25; Status DC Lidocaine (Lidoderm) 1 patch DAILY TD Last administered on 04/21/16 08:40; Start 04/19/16 at 09:00 Oxcarbazepine (Trileptal) 150 mg BID PO Last administered on 04/21/16 08:39; Start 04/18/16 at 21:00; Stop 04/21/16 at 17:49; Status DC Mirtazapine (Remeron) 7.5 mg QHS PO Last administered on 04/20/16 20:14; Start 04/20/16 at 21:00 Active Scripts Active Reported Trazodone Hcl 50 Mg Tablet 50 Mg PO PRN QHS PRN Remeron (Mirtazapine) 15 Mg Tablet 7.5 Mg PO HS Klor-Con M20 (Potassium Chloride) 20 Meq Tab.er.prt 20 Meq PO DAILY Systane 0.3-0.4% Eye Drops (Propylene Glycol/Peg 400) 15 Ml Drops 1 Drop EACHEYE PRN PRN Nystatin 15 Gm Powder 1 Beba TP PRN PRN Lorazepam 1 Mg Tablet 1 Mg PO PRN Q8HRS PRN Anti-Diarrhea (Loperamide Hcl) 2 Mg Tablet 2 Mg PO PRN PRN Ibuprofen 200 Mg Capsule 200 Mg PO PRN Q6HRS PRN Benadryl (Diphenhydramine Hcl) 25 Mg Capsule 25 Mg PO PRN Q4HRS PRN Tylenol Extra Strength (Acetaminophen) 500 Mg Tablet 500 Mg PO QID Carbidopa-Levo Er 50-200 Tab (Carbidopa/Levodopa) 1 Each Tablet.er 1 Each PO QID Depakote (Divalproex Sodium) 250 Mg Tablet.dr 250 Mg PO BIDACLD Cetaphil Cream (Cetyl Alc/Stearyl Alc/Pg/Sls) 454 Gm Cream..g. 1 Beba TP BID Thera-M (Multivits,Th W-Fe,Other Min) 1 Each Tablet 1 Each PO DAILY Dilantin (Phenytoin Sodium Extended) 100 Mg Capsule 300 Mg PO HS Escitalopram Oxalate 10 Mg Tablet 10 Mg PO DAILY Levothyroxine Sodium 100 Mcg Tablet 100 Mcg PO DAILYAC Ibuprofen 400 Mg Tablet 400 Mg PO HS [doxapin] 10 Mg HS Depakote (Divalproex Sodium) 500 Mg Tablet.dr 500 Mg PO DAILY Bisoprolol-Hctz 5-6.25 Mg Tab (Bisoprolol Fumarate/Hctz) 1 Each Tablet 1 Tab PO DAILYWSUP Children's Aspirin (Aspirin) 81 Mg Tab.chew 81 Mg PO DAILY Amantadine (Amantadine Hcl) 100 Mg Capsule 100 Mg PO DAILY Abilify (Aripiprazole) 10 Mg Tablet 10 Mg PO HS Aquaphor Healing Ointment (Mineral Oil/Hydrophil Petrolat) 50 Gm Oint...g. 1 Beba TP HS Diagnosis: Problems: (1) Bipolar disorder with psychotic features (2) Bipolar affective, mixed (3) Anxiety disorder (4) Dementia in Alzheimer's disease with delusions (5) Dementia in Alzheimer's disease with depression (6) Impulse control disorder LOUANN ARCEO MD Apr 22, 2016 08:42
[2016-04-22 08:56] LABS: HEMATOCRIT 40.8 % (36.0-47.0); HEMOGLOBIN 13.4 g/dL (12.0-15.5); RED BLOOD COUNT 4.14 x10^6/uL (3.50-5.40); RED CELL DISTRIBUTION WIDTH 13.9 % (11.5-14.5); WHITE BLOOD COUNT 7.2 x10^3/uL (4.0-11.0)
[2016-04-22 09:01] LABS: ALBUMIN 3.8 g/dL (3.4-5.0); ALBUMIN/GLOBULIN RATIO 1.2 (1.0-1.7); CALCIUM 8.5 mg/dL (8.5-10.1); CREATININE 0.7 mg/dL (0.6-1.0); GFR 79.7; POTASSIUM 3.5 mmol/L (3.5-5.1); TOTAL BILIRUBIN 0.4 mg/dL (0.2-1.0)
[2016-04-22] MEDS: MULTIVITAMIN with MINERAL TABLET. PO SCH (09:01)
[2016-04-22] MEDS: ASPIRIN 81 MG TAB.CHEW PO SCH (09:01)
[2016-04-22] MEDS: ACETAMINOPHEN 500 MG TABLET PO SCH ×4 (09:01→20:13)
[2016-04-22] MEDS: CARBIDOPA/LEVODOPA CR 50/200MG TABLET.SA PO SCH ×4 (09:01→20:13)
[2016-04-22] MEDS: POTASSIUM CHLORIDE 20 MEQ TABLET.ER. PO SCH (09:02)
[2016-04-22] MEDS: ESCITALOPRAM 10 MG TABLET. PO SCH (09:02)
[2016-04-22] MEDS: DIVALPROEX SODIUM 250 MG TABLET.DR. PO SCH ×3 (09:02→16:28)
[2016-04-22] MEDS: LIDOCAINE (700MG/PATCH) PATCH. TD SCH (09:02)
[2016-04-22] MEDS: CETAPHIL TP SCH ×2 (09:03→20:15)
[2016-04-22] MEDS: AMANTADINE HCL 100 MG CAPSULE PO SCH (09:03)
[2016-04-22 15:53] VITALS: BP 141/88
[2016-04-22] MEDS: ATENOLOL 50 MG TABLET PO SCH (16:29)
[2016-04-22] MEDS: HYDROCHLOROTHIAZIDE 25 MG TABLET PO SCH (16:29)
[2016-04-22] MEDS: MIRTAZAPINE 7.5 MG TABLET. PO SCH (20:13)
[2016-04-22] MEDS: MINERAL OIL/PETROLATUM TOPICAL CREAM 113GM JAR. TP SCH (20:14)
[2016-04-22] MEDS: ARIPIPRAZOLE 10 MG TABLET PO SCH (20:14)
[2016-04-22] MEDS: DOXEPIN HCL 10 MG CAPSULE PO SCH (20:15)
[2016-04-23] MEDS: LEVOTHYROXINE 100 MCG TABLET PO SCH (05:57)
[2016-04-23 06:40] VITALS: BP 150/75
[2016-04-23 07:23] LABS: PHENY 0.8 mcg/mL (10.0-20.0)
--- NOTE | 2016-04-23 09:06 | RAD ---
Exam performed: Single view pelvis and bilateral hips. History: History of fall. Patient is unsure when she fell. Date of service: 04/17/16. Comparison: None available Findings: Single view pelvis and frog leg lateral view bilateral hips are obtained. Study somewhat limited due to positioning. There is foreshortening of the right femoral neck. Joint space narrowing involving both hip joints. There is no acute displaced fracture. Spondylotic changes involving the lumbar spine. Impression: 1. Foreshortening of the right femoral neck without definite visualization of a fracture, however cannot be excluded. Correlate with clinical findings and if there is a suspicion for right hip fracture, evaluation with CT scan may be of benefit. End impression. Right rib series findings: There are several minimally displaced fractures involving the right ribs probably extending from 5 through 8 ribs in the midaxillary line. There is no pleural effusion or pneumothorax. Calcified nodule in the right apex. Impression: 1. Nondisplaced 5 through 8 ribs in the midaxillary line. No pneumothorax. DICTATED AND SIGNED BY: KASIE SOSA MD DATE: 04/17/[address] [facility]
[2016-04-23] MEDS: ACETAMINOPHEN 500 MG TABLET PO SCH ×4 (09:19→20:58)
[2016-04-23] MEDS: LIDOCAINE (700MG/PATCH) PATCH. TD SCH (09:19)
[2016-04-23] MEDS: POTASSIUM CHLORIDE 20 MEQ TABLET.ER. PO SCH (09:19)
[2016-04-23] MEDS: MULTIVITAMIN with MINERAL TABLET. PO SCH (09:20)
[2016-04-23] MEDS: CARBIDOPA/LEVODOPA CR 50/200MG TABLET.SA PO SCH ×4 (09:20→20:58)
[2016-04-23] MEDS: DIVALPROEX SODIUM 250 MG TABLET.DR. PO SCH ×3 (09:20→17:07)
[2016-04-23] MEDS: ESCITALOPRAM 10 MG TABLET. PO SCH (09:20)
[2016-04-23] MEDS: ASPIRIN 81 MG TAB.CHEW PO SCH (09:20)
[2016-04-23] MEDS: AMANTADINE HCL 100 MG CAPSULE PO SCH (09:21)
[2016-04-23] MEDS: CETAPHIL TP SCH ×2 (09:21→21:03)
[2016-04-23] MEDS: LORAZEPAM 1 MG TABLET. PO PRN (14:43)
[2016-04-23 16:29] VITALS: BP 147/70
[2016-04-23] MEDS: HYDROCHLOROTHIAZIDE 25 MG TABLET PO SCH (17:08)
[2016-04-23] MEDS: ATENOLOL 50 MG TABLET PO SCH (17:09)
--- NOTE | 2016-04-23 20:16 | PDOC ---
Exam Andrea Demential Exam: Andrea Note: Please also refer to the separate dictated note~for this date of service dictated separately.~Patient seen individually. Discussed the patient with Nursing staff reviewed the chart.~Reviewed interim history and current functioning. Reviewed vital signs,~Labs/ Radiology~and current medications noted below. Continue current treatment with the changes noted in the dictated addendum note Assessment: Vital Signs: Vital Signs Date Time Temp Pulse Resp B/P Pulse Ox O2 Delivery O2 Flow Rate FiO2 04/23/16 17:09 80 147/70 04/23/16 16:29 98.9 18 95 Room Air I&O Intake and Output 04/23/16 07:00 Intake Total 960 ml Balance 960 ml Intake Oral 960 ml # Bowel Movements 1 Labs: Laboratory Tests Test 04/23/16 06:57 Free Thyroxine 0.87ng/dL (0.76-1.46) Phenytoin (Dilantin) Level 0.8mcg/mL (10.0-20.0) L Phenytoin Last Dose Date 04/22/2016 Phenytoin Last Dose Time 2100 Current Medications: Meds: Current Medications Potassium Chloride (KCl Oral Soln) 40 meq 1X ONCE PO Last administered on 04/17 13:12; Start 04/17/16 at 13:00; Stop 04/17/16 at 13:01; Status DC Acetaminophen (Tylenol) 650 mg PRN Q6HRS PRN PO PAIN / TEMP; Start 04/17/16 at 14:15; Status Cancel Potassium Chloride (Klor-Con) 20 meq BID66 PO Last administered on 04/19/16 05: 52; Start 04/17/16 at 18:00; Stop 04/19/16 at 07:00; Status DC Acetaminophen (Tylenol) 650 mg PRN Q6HRS PRN PO PAIN / TEMP; Start 04/17/16 at 15:30 Multi-Ingredient Ointment (Analgesic [place]) 1 beba PRN QID PRN TP MUSCLE PAIN; Start 04/17/16 at 15:30 Al Hydroxide/Mg Hydroxide (Mylanta Plus Xs) 15 ml PRN AFTMEALHC PRN PO DYSPEPSIA; Start 04/17/16 at 15:30 Magnesium Hydroxide (Milk Of Magnesia) 2,400 mg PRN QHS PRN PO CONSTIPATION; Start 04/17/16 at 15:30 Acetaminophen (Tylenol) 500 mg QID PO Last administered on 04/23/16 17:07; Start 04/17/16 at 17:00 Amantadine HCl (Symmetrel) 100 mg DAILY PO Last administered on 04/23/16 09:21 ; Start 04/18/16 at 09:00 Aripiprazole (Abilify) 10 mg HS PO Last administered on 04/22/16 20:14; Start 04/17/16 at 21:00; Stop 04/23/16 at 18:11; Status DC Aspirin (Children'S Aspirin) 81 mg DAILY PO Last administered on 04/23/16 09:20 ; Start 04/18/16 at 09:00 Bisoprolol Fumarate (Ziac 5-6.25) 1 tab DAILYWSUP PO ; Start 04/17/16 at 17:00; Stop 04/17/16 at 17:00; Status DC Carbidopa/Levodopa (Sinemet Cr) 1 tab.sa QID PO Last administered on 04/23/16 17:09; Start 04/17/16 at 17:00 Diphenhydramine HCl (Benadryl) 25 mg PRN Q4HRS PRN PO ITCHING; Start 04/17/16 at 15:30 Divalproex Sodium (Depakote) 250 mg BIDACLD PO Last administered on 04/22/16 16 :28; Start 04/17/16 at 16:30; Stop 04/22/16 at 18:52; Status DC Escitalopram Oxalate (Lexapro) 10 mg DAILY PO Last administered on 04/23/16 09: 20; Start 04/18/16 at 09:00 Ibuprofen (Motrin) 400 mg HS PO Last administered on 04/21/16 20:27; Start at 21:00 Levothyroxine Sodium (Synthroid) 100 mcg DAILY06 PO Last administered on 05:17; Start 04/18/16 at 06:00 Lorazepam (Ativan) 1 mg PRN Q8HRS PRN PO ANXIETY / AGITATION Last administered on 04/23/16 14:43; Start 04/17/16 at 15:30 Nystatin (Nystop) 1 beba PRN TID PRN TP ITCHING; Start 04/17/16 at 15:30 Phenytoin Sodium (Dilantin) 300 mg HS PO Last administered on 04/17/16 20:31; Start 04/17/16 at 21:00; Stop 04/18/16 at 16:28; Status DC Potassium Chloride (Klor-Con) 20 meq DAILY PO ; Start 04/18/16 at 09:00; Stop 04/18/16 at 09:00; Status DC Polyethyl Glycol/ Propylene Glycol (Systane 0.3-0.4% Oph) 1 drop PRN QID PRN OU DRY EYE; Start 04/17/16 at 15:30 Multi-Ingredient Lotion (Cetaphil Moisturizing Lotion) 1 beba BID TP Last administered on 04/17/16 20:32; Start 04/17/16 at 21:00; Stop 04/18/16 at 15:18 ; Status DC Divalproex Sodium (Depakote) 500 mg DAILY PO Last administered on 04/23/16 09: 20; Start 04/18/16 at 09:00 Ibuprofen (Motrin) 200 mg PRN Q6HRS PRN PO PAIN; Start 04/17/16 at 15:45 Loperamide HCl (Imodium) 2 mg PRN Q15MIN PRN PO DIARRHEA; Start 04/17/16 at 15: 45 Multi-Ingred Cream/Lotion/Oil/ Oint (Hydrocerin) 1 beba QHS TP Last administered on 04/17/16 20:33; Start 04/17/16 at 15:45; Stop 04/18/16 at 15:17 ; Status DC Multivitamins/ Calcium (Thera-M Plus) 1 tab DAILY PO Last administered on 09:20; Start 04/18/16 at 09:00 Doxepin HCl (Sinequan) 10 mg QHS PO Last administered on 04/22/16 20:15; Start 04/17/16 at 21:00; Stop 04/23/16 at 16:55; Status DC Atenolol (Tenormin) 50 mg DAILYWSUP PO Last administered on 04/23/16 17:09; Start 04/17/16 at 17:00 Hydrochlorothiazide (Hydrodiuril) 6.25 mg DAILYWSUP PO Last administered on 04/23 17:08; Start 04/17/16 at 17:00 Potassium Chloride (Klor-Con) 20 meq DAILY PO Last administered on 04/23/16 09: 19; Start 04/20/16 at 09:00 Multi-Ingred Cream/Lotion/Oil/ Oint (Hydrocerin) 1 beba QHS TP Last administered on 04/22/16 20:14; Start 04/18/16 at 15:17 Multi-Ingredient Lotion (Cetaphil Moisturizing Lotion) 1 beba BID TP Last administered on 04/23/16 09:21; Start 04/18/16 at 15:18 Phenytoin Sodium (Dilantin) 400 mg HS PO Last administered on 04/19/16 20:31; Start 04/18/16 at 21:00; Stop 04/20/16 at 09:25; Status DC Lidocaine (Lidoderm) 1 patch DAILY TD Last administered on 04/23/16 09:19; Start 04/19/16 at 09:00 Oxcarbazepine (Trileptal) 150 mg BID PO Last administered on 04/21/16 08:39; Start 04/18/16 at 21:00; Stop 04/21/16 at 17:49; Status DC Mirtazapine (Remeron) 7.5 mg QHS PO Last administered on 04/22/16 20:13; Start 04/20/16 at 21:00 Divalproex Sodium (Depakote) 250 mg DAILYWLUN PO Last administered on 04/23/16 12:30; Start 04/23/16 at 12:00 Divalproex Sodium (Depakote) 500 mg DAILYWSUP PO Last administered on 04/23/16 17:07; Start 04/23/16 at 17:00 Risperidone (Risperdal) 0.5 mg QHS PO ; Start 04/23/16 at 21:00 Trazodone HCl (Desyrel) 50 mg QHS PO ; Start 04/23/16 at 21:00 Active Scripts Active Reported Trazodone Hcl 50 Mg Tablet 50 Mg PO PRN QHS PRN Remeron (Mirtazapine) 15 Mg Tablet 7.5 Mg PO HS Klor-Con M20 (Potassium Chloride) 20 Meq Tab.er.prt 20 Meq PO DAILY Systane 0.3-0.4% Eye Drops (Propylene Glycol/Peg 400) 15 Ml Drops 1 Drop EACHEYE PRN PRN Nystatin 15 Gm Powder 1 Beba TP PRN PRN Lorazepam 1 Mg Tablet 1 Mg PO PRN Q8HRS PRN Anti-Diarrhea (Loperamide Hcl) 2 Mg Tablet 2 Mg PO PRN PRN Ibuprofen 200 Mg Capsule 200 Mg PO PRN Q6HRS PRN Benadryl (Diphenhydramine Hcl) 25 Mg Capsule 25 Mg PO PRN Q4HRS PRN Tylenol Extra Strength (Acetaminophen) 500 Mg Tablet 500 Mg PO QID Carbidopa-Levo Er 50-200 Tab (Carbidopa/Levodopa) 1 Each Tablet.er 1 Each PO QID Depakote (Divalproex Sodium) 250 Mg Tablet.dr 250 Mg PO BIDACLD Cetaphil Cream (Cetyl Alc/Stearyl Alc/Pg/Sls) 454 Gm Cream..g. 1 Beba TP BID Thera-M (Multivits,-,Other Min) 1 Each Tablet 1 Each PO DAILY Dilantin (Phenytoin Sodium Extended) 100 Mg Capsule 300 Mg PO HS Escitalopram Oxalate 10 Mg Tablet 10 Mg PO DAILY Levothyroxine Sodium 100 Mcg Tablet 100 Mcg PO DAILYAC Ibuprofen 400 Mg Tablet 400 Mg PO HS [doxapin] 10 Mg HS Depakote (Divalproex Sodium) 500 Mg Tablet.dr 500 Mg PO DAILY Bisoprolol-Hctz 5-6.25 Mg Tab (Bisoprolol Fumarate/Hctz) 1 Each Tablet 1 Tab PO DAILYWSUP Children's Aspirin (Aspirin) 81 Mg Tab.chew 81 Mg PO DAILY Amantadine (Amantadine Hcl) 100 Mg Capsule 100 Mg PO DAILY Abilify (Aripiprazole) 10 Mg Tablet 10 Mg PO HS Aquaphor Healing Ointment (Mineral Oil/Hydrophil Petrolat) 50 Gm Oint...g. 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
[2016-04-23 20:21] LABS: THYROXINE 5.8 ug/dL (4.5-12.0)
[2016-04-23] MEDS: MIRTAZAPINE 7.5 MG TABLET. PO SCH (20:58)
[2016-04-23] MEDS: IBUPROFEN 400 MG TABLET. PO SCH (21:00)
[2016-04-23] MEDS: traZODone 50 MG TABLET. PO SCH (21:02)
[2016-04-23] MEDS: risperiDONE 0.5 MG TABLET. PO SCH (21:03)
[2016-04-23] MEDS: MINERAL OIL/PETROLATUM TOPICAL CREAM 113GM JAR. TP SCH (21:04)
[2016-04-24] MEDS: LEVOTHYROXINE 100 MCG TABLET PO SCH (05:09)
[2016-04-24 06:05] VITALS: BP 146/69
[2016-04-24] MEDS: ESCITALOPRAM 10 MG TABLET. PO SCH (09:47)
[2016-04-24] MEDS: ACETAMINOPHEN 500 MG TABLET PO SCH ×4 (09:47→19:49)
[2016-04-24] MEDS: AMANTADINE HCL 100 MG CAPSULE PO SCH (09:47)
[2016-04-24] MEDS: CARBIDOPA/LEVODOPA CR 50/200MG TABLET.SA PO SCH ×4 (09:48→19:49)
[2016-04-24] MEDS: POTASSIUM CHLORIDE 20 MEQ TABLET.ER. PO SCH (09:48)
[2016-04-24] MEDS: MULTIVITAMIN with MINERAL TABLET. PO SCH (09:48)
[2016-04-24] MEDS: DIVALPROEX SODIUM 250 MG TABLET.DR. PO SCH ×3 (09:49→16:49)
[2016-04-24] MEDS: ASPIRIN 81 MG TAB.CHEW PO SCH (09:49)
[2016-04-24] MEDS: LIDOCAINE (700MG/PATCH) PATCH. TD SCH (09:50)
[2016-04-24] MEDS: CETAPHIL TP SCH ×2 (09:51→19:50)
[2016-04-24 15:55] VITALS: BP 127/55
[2016-04-24] MEDS: HYDROCHLOROTHIAZIDE 25 MG TABLET PO SCH (16:49)
[2016-04-24] MEDS: ATENOLOL 50 MG TABLET PO SCH (16:50)
--- NOTE | 2016-04-24 17:25 | PN ---
DATE: 04/21/2016 PSYCHIATRIC PROGRESS NOTE This is a late entry for 04/21/2016, covers the elements not covered in my initial note. SUBJECTIVE: Per nursing report, the patient had some trouble sleeping the previous night, gets angry, irritable at times, a little suspicious, paranoid. REVIEW OF SYSTEMS: Ambulation impaired, in a wheelchair. No CV, , pulmonary, eye, ENT system symptoms on review. Hard of hearing. MENTAL STATUS EXAM: Oriented to herself and situation. Speech coherent, abstraction fair, computation impaired, language function intact. Short-term memory is impaired. Mood and affect still somewhat anxious, labile at times. Nursing report she is somewhat paranoid, suspicious, and telling nursing staff "why are you tormenting us" and snaps at staff members. LABORATORY DATA: Reviewed. IMPRESSION: Bipolar 1 disorder, mixed with psychotic features, in partial remission; major neurocognitive disorder, early vascular with delusion, behavioral disturbance; anxiety disorder, unspecified; impulse control disorder, unspecified. PLAN: Stop the Trileptal. Check valproic acid level in the morning. EEG is being completed and is unremarkable. Maintain Depakote DR 500 mg daily and 250 b.i.d., Abilify 10 mg a day, Ativan and Benadryl p.r.n., Remeron 7.5 mg at bedtime. Adjust further as clinically indicated. MAN Mary ARCEO MD DR: BETSY/brandie JOB#: [id number] / [id number]
[2016-04-24] MEDS: IBUPROFEN 400 MG TABLET. PO SCH (19:49)
[2016-04-24] MEDS: traZODone 50 MG TABLET. PO SCH (19:49)
[2016-04-24] MEDS: MIRTAZAPINE 7.5 MG TABLET. PO SCH (19:49)
[2016-04-24] MEDS: risperiDONE 0.5 MG TABLET. PO SCH (19:49)
[2016-04-24] MEDS: MINERAL OIL/PETROLATUM TOPICAL CREAM 113GM JAR. TP SCH (19:50)
--- NOTE | 2016-04-24 20:16 | PDOC ---
Exam Andrea Demential Exam: Andrea Note: Please also refer to the separate dictated note~for this date of service dictated separately.~Patient seen individually. Discussed the patient with Nursing staff reviewed the chart.~Reviewed interim history and current functioning. Reviewed vital signs,~Labs/ Radiology~and current medications noted below. Continue current treatment with the changes noted in the dictated addendum note Assessment: Vital Signs: Vital Signs Date Time Temp Pulse Resp B/P Pulse Ox O2 Delivery O2 Flow Rate FiO2 04/24/16 16:50 67 127/55 04/24/16 15:55 97.6 18 96 04/23/16 16:29 Room Air I&O Intake and Output 04/24/16 07:00 Intake Total 1080 ml Balance 1080 ml Intake Oral 1080 ml Current Medications: Meds: Current Medications Potassium Chloride (KCl Oral Soln) 40 meq 1X ONCE PO Last administered on 04/17 13:12; Start 04/17/16 at 13:00; Stop 04/17/16 at 13:01; Status DC Acetaminophen (Tylenol) 650 mg PRN Q6HRS PRN PO PAIN / TEMP; Start 04/17/16 at 14:15; Status Cancel Potassium Chloride (Klor-Con) 20 meq BID66 PO Last administered on 04/19/16 05: 52; Start 04/17/16 at 18:00; Stop 04/19/16 at 07:00; Status DC Acetaminophen (Tylenol) 650 mg PRN Q6HRS PRN PO PAIN / TEMP; Start 04/17/16 at 15:30 Multi-Ingredient Ointment (Analgesic [place]) 1 beba PRN QID PRN TP MUSCLE PAIN; Start 04/17/16 at 15:30 Al Hydroxide/Mg Hydroxide (Mylanta Plus Xs) 15 ml PRN AFTMEALHC PRN PO DYSPEPSIA; Start 04/17/16 at 15:30 Magnesium Hydroxide (Milk Of Magnesia) 2,400 mg PRN QHS PRN PO CONSTIPATION; Start 04/17/16 at 15:30 Acetaminophen (Tylenol) 500 mg QID PO Last administered on 04/24/16 19:49; Start 04/17/16 at 17:00 Amantadine HCl (Symmetrel) 100 mg DAILY PO Last administered on 04/24/16 09:47 ; Start 04/18/16 at 09:00 Aripiprazole (Abilify) 10 mg HS PO Last administered on 04/22/16 20:14; Start 04/17/16 at 21:00; Stop 04/23/16 at 18:11; Status DC Aspirin (Children'S Aspirin) 81 mg DAILY PO Last administered on 04/24/16 09:49 ; Start 04/18/16 at 09:00 Bisoprolol Fumarate (Ziac 5-6.25) 1 tab DAILYWSUP PO ; Start 04/17/16 at 17:00; Stop 04/17/16 at 17:00; Status DC Carbidopa/Levodopa (Sinemet Cr) 1 tab.sa QID PO Last administered on 04/24/16 19:49; Start 04/17/16 at 17:00 Diphenhydramine HCl (Benadryl) 25 mg PRN Q4HRS PRN PO ITCHING; Start 04/17/16 at 15:30 Divalproex Sodium (Depakote) 250 mg BIDACLD PO Last administered on 04/22/16 16 :28; Start 04/17/16 at 16:30; Stop 04/22/16 at 18:52; Status DC Escitalopram Oxalate (Lexapro) 10 mg DAILY PO Last administered on 04/24/16 09: 47; Start 04/18/16 at 09:00 Ibuprofen (Motrin) 400 mg HS PO Last administered on 04/24/16 19:49; Start at 21:00 Levothyroxine Sodium (Synthroid) 100 mcg DAILY06 PO Last administered on 05:09; Start 04/18/16 at 06:00 Lorazepam (Ativan) 1 mg PRN Q8HRS PRN PO ANXIETY / AGITATION Last administered on 04/23/16 14:43; Start 04/17/16 at 15:30 Nystatin (Nystop) 1 beba PRN TID PRN TP ITCHING; Start 04/17/16 at 15:30 Phenytoin Sodium (Dilantin) 300 mg HS PO Last administered on 04/17/16 20:31; Start 04/17/16 at 21:00; Stop 04/18/16 at 16:28; Status DC Potassium Chloride (Klor-Con) 20 meq DAILY PO ; Start 04/18/16 at 09:00; Stop 04/18/16 at 09:00; Status DC Polyethyl Glycol/ Propylene Glycol (Systane 0.3-0.4% Oph) 1 drop PRN QID PRN OU DRY EYE; Start 04/17/16 at 15:30 Multi-Ingredient Lotion (Cetaphil Moisturizing Lotion) 1 beba BID TP Last administered on 04/17/16 20:32; Start 04/17/16 at 21:00; Stop 04/18/16 at 15:18 ; Status DC Divalproex Sodium (Depakote) 500 mg DAILY PO Last administered on 04/24/16 09: 49; Start 04/18/16 at 09:00 Ibuprofen (Motrin) 200 mg PRN Q6HRS PRN PO PAIN; Start 04/17/16 at 15:45 Loperamide HCl (Imodium) 2 mg PRN Q15MIN PRN PO DIARRHEA; Start 04/17/16 at 15: 45 Multi-Ingred Cream/Lotion/Oil/ Oint (Hydrocerin) 1 beba QHS TP Last administered on 04/17/16 20:33; Start 04/17/16 at 15:45; Stop 04/18/16 at 15:17 ; Status DC Multivitamins/ Calcium (Thera-M Plus) 1 tab DAILY PO Last administered on 09:48; Start 04/18/16 at 09:00 Doxepin HCl (Sinequan) 10 mg QHS PO Last administered on 04/22/16 20:15; Start 04/17/16 at 21:00; Stop 04/23/16 at 16:55; Status DC Atenolol (Tenormin) 50 mg DAILYWSUP PO Last administered on 04/24/16 16:50; Start 04/17/16 at 17:00 Hydrochlorothiazide (Hydrodiuril) 6.25 mg DAILYWSUP PO Last administered on 04/24 16:49; Start 04/17/16 at 17:00 Potassium Chloride (Klor-Con) 20 meq DAILY PO Last administered on 04/24/16 09: 48; Start 04/20/16 at 09:00 Multi-Ingred Cream/Lotion/Oil/ Oint (Hydrocerin) 1 beba QHS TP Last administered on 04/24/16 19:50; Start 04/18/16 at 15:17 Multi-Ingredient Lotion (Cetaphil Moisturizing Lotion) 1 beba BID TP Last administered on 04/24/16 19:50; Start 04/18/16 at 15:18 Phenytoin Sodium (Dilantin) 400 mg HS PO Last administered on 04/19/16 20:31; Start 04/18/16 at 21:00; Stop 04/20/16 at 09:25; Status DC Lidocaine (Lidoderm) 1 patch DAILY TD Last administered on 04/24/16 09:50; Start 04/19/16 at 09:00 Oxcarbazepine (Trileptal) 150 mg BID PO Last administered on 04/21/16 08:39; Start 04/18/16 at 21:00; Stop 04/21/16 at 17:49; Status DC Mirtazapine (Remeron) 7.5 mg QHS PO Last administered on 04/24/16 19:49; Start 04/20/16 at 21:00 Divalproex Sodium (Depakote) 250 mg DAILYWLUN PO Last administered on 04/24/16 11:56; Start 04/23/16 at 12:00 Divalproex Sodium (Depakote) 500 mg DAILYWSUP PO Last administered on 04/24/16 16:49; Start 04/23/16 at 17:00 Risperidone (Risperdal) 0.5 mg QHS PO Last administered on 04/24/16 19:49; Start 04/23/16 at 21:00 Trazodone HCl (Desyrel) 50 mg QHS PO Last administered on 04/24/16 19:49; Start 04/23/16 at 21:00 Active Scripts Active Reported Trazodone Hcl 50 Mg Tablet 50 Mg PO PRN QHS PRN Remeron (Mirtazapine) 15 Mg Tablet 7.5 Mg PO HS Klor-Con M20 (Potassium Chloride) 20 Meq Tab.er.prt 20 Meq PO DAILY Systane 0.3-0.4% Eye Drops (Propylene Glycol/Peg 400) 15 Ml Drops 1 Drop EACHEYE PRN PRN Nystatin 15 Gm Powder 1 Beba TP PRN PRN Lorazepam 1 Mg Tablet 1 Mg PO PRN Q8HRS PRN Anti-Diarrhea (Loperamide Hcl) 2 Mg Tablet 2 Mg PO PRN PRN Ibuprofen 200 Mg Capsule 200 Mg PO PRN Q6HRS PRN Benadryl (Diphenhydramine Hcl) 25 Mg Capsule 25 Mg PO PRN Q4HRS PRN Tylenol Extra Strength (Acetaminophen) 500 Mg Tablet 500 Mg PO QID Carbidopa-Levo Er 50-200 Tab (Carbidopa/Levodopa) 1 Each Tablet.er 1 Each PO QID Depakote (Divalproex Sodium) 250 Mg Tablet.dr 250 Mg PO BIDACLD Cetaphil Cream (Cetyl Alc/Stearyl Alc/Pg/Sls) 454 Gm Cream..g. 1 Beba TP BID Thera-M (Multivits, W-,Other Min) 1 Each Tablet 1 Each PO DAILY Dilantin (Phenytoin Sodium Extended) 100 Mg Capsule 300 Mg PO HS Escitalopram Oxalate 10 Mg Tablet 10 Mg PO DAILY Levothyroxine Sodium 100 Mcg Tablet 100 Mcg PO DAILYAC Ibuprofen 400 Mg Tablet 400 Mg PO HS [doxapin] 10 Mg HS Depakote (Divalproex Sodium) 500 Mg Tablet.dr 500 Mg PO DAILY Bisoprolol-Hctz 5-6.25 Mg Tab (Bisoprolol Fumarate/Hctz) 1 Each Tablet 1 Tab PO DAILYWSUP Children's Aspirin (Aspirin) 81 Mg Tab.chew 81 Mg PO DAILY Amantadine (Amantadine Hcl) 100 Mg Capsule 100 Mg PO DAILY Abilify (Aripiprazole) 10 Mg Tablet 10 Mg PO HS Aquaphor Healing Ointment (Mineral Oil/Hydrophil Petrolat) 50 Gm Oint...g. 1 Beba TP HS Diagnosis: Problems: (1) Bipolar disorder with psychotic features (2) Bipolar affective, mixed (3) Anxiety disorder (4) Dementia in Alzheimer's disease with delusions (5) Dementia in Alzheimer's disease with depression (6) Impulse control disorder LOUANN ARCEO MD Apr 24, 2016 20:16
--- NOTE | 2016-04-24 20:31 | PN ---
DATE: 04/22/2016 PSYCHIATRIC PROGRESS NOTE This is a late entry for 04/22/2016, covers elements not covered in my initial note. SUBJECTIVE: Per nursing report, the patient was extremely labile, agitated, the day before, knocked the medications out of the longterm staff member's hand, was hitting, combative during ADLs. PRNs were effective. She has done a little bit during the day on 04/22/2016, but still very anxious, labile. REVIEW OF SYSTEMS: Ambulation impaired, in her wheelchair, hard of hearing. No CV, , Pulmonary, eye system symptoms on review. The patient followed me around the unit, wanted to meet with me, repeatedly obsessed about discharge plans. I processed this with her several times. MENTAL STATUS EXAM: Oriented to herself and situation. Speech is coherent, abstraction fair, computation impaired, language function intact, attention span short. Short term memory is impaired. LABORATORY DATA: Valproic acid level is 13. IMPRESSION: Bipolar 1 disorder, mixed with psychotic features; major neurocognitive disorder, early vascular with delusion; anxiety disorder, unspecified; impulse control disorder, unspecified. PLAN: Stop the Trileptal. Increase Depakote DR to 500 mg in the morning and night, 250 in the afternoon, which is an increase of 250 mg a day since the level is 13 on the prior dosage. Repeat labs level in 3 days. Continue Abilify 10 mg a day, Ativan, and Benadryl p.r.n., Lexapro 10 mg a day, Sinequan 10 mg at bedtime and we will go ahead and stop this, and Remeron 7.5 mg at bedtime. Adjust further as clinically indicated. MAN Mary ARCEO MD DR: BETSY/brandie JOB#: [id number] / [id number]
[2016-04-25] MEDS: LEVOTHYROXINE 100 MCG TABLET PO SCH (05:02)
[2016-04-25 06:19] VITALS: BP 130/62
[2016-04-25 06:39] LABS: HEMATOCRIT 38.1 % (36.0-47.0); HEMOGLOBIN 12.6 g/dL (12.0-15.5); RED BLOOD COUNT 3.86 x10^6/uL (3.50-5.40); RED CELL DISTRIBUTION WIDTH 13.8 % (11.5-14.5); WHITE BLOOD COUNT 5.1 x10^3/uL (4.0-11.0)
[2016-04-25 06:44] LABS: ALBUMIN 3.4 g/dL (3.4-5.0); ALBUMIN/GLOBULIN RATIO 1.1 (1.0-1.7); ALK PHOS 152 U/L (46-116); ALT (SGPT) 11 U/L (14-59); ANION GAP 6 (6-14); AST (SGOT) 20 U/L (15-37); BLOOD UREA NITROGEN 18 mg/dL (7-20); BUN/CREATININE RATIO 26 (6-20); CALCIUM 8.3 mg/dL (8.5-10.1); CARBON DIOXIDE 32 mmol/L (21-32); CHLORIDE 105 mmol/L (98-107); CREATININE 0.7 mg/dL (0.6-1.0); GFR 79.7; GLUCOSE 86 mg/dL (70-99); POTASSIUM 3.6 mmol/L (3.5-5.1); SODIUM 143 mmol/L (136-145); TOTAL BILIRUBIN 0.4 mg/dL (0.2-1.0); TOTAL PROTEIN 6.6 g/dL (6.4-8.2); VAL ACID 18 mcg/mL (50-100)
--- NOTE | 2016-04-25 08:07 | PDOC ---
Exam Andrea Demential Exam: Andrea Note: Please also refer to the separate dictated note~for this date of service dictated separately.~Patient seen individually. Discussed the patient with Nursing staff reviewed the chart.~Reviewed interim history and current functioning. Reviewed vital signs,~Labs/ Radiology~and current medications noted below. Continue current treatment with the changes noted in the dictated addendum note Assessment: Vital Signs: Vital Signs Date Time Temp Pulse Resp B/P Pulse Ox O2 Delivery O2 Flow Rate FiO2 04/25/16 06:19 97.3 62 18 130/62 96 04/23/16 16:29 Room Air I&O Intake and Output 04/25/16 07:00 Intake Total 720 ml Balance 720 ml Intake Oral 720 ml Labs: Laboratory Tests Test 04/25/16 06:21 White Blood Count 5.1x10^3/uL (4.0-11.0) Red Blood Count 3.86x10^6/uL (3.50-5.40) Hemoglobin 12.6g/dL (12.0-15.5) Hematocrit 38.1% (36.0-47.0) Mean Corpuscular Volume 99fL (79-100) Mean Corpuscular Hemoglobin 33pg (25-35) Mean Corpuscular Hemoglobin Concent 33g/dL (31-37) Red Cell Distribution Width 13.8% (11.5-14.5) Platelet Count 248x10^3/uL (140-400) Sodium Level 143mmol/L (136-145) Potassium Level 3.6mmol/L (3.5-5.1) Chloride Level 105mmol/L (98-107) Carbon Dioxide Level 32mmol/L (21-32) Anion Gap 6 (6-14) Blood Urea Nitrogen 18mg/dL (7-20) Creatinine 0.7mg/dL (0.6-1.0) Estimated GFR (Cockcroft-Gault) 79.7 BUN/Creatinine Ratio 26 (6-20) H Glucose Level 86mg/dL (70-99) Calcium Level 8.3mg/dL (8.5-10.1) L Magnesium Level 1.8mg/dL (1.8-2.4) Total Bilirubin 0.4mg/dL (0.2-1.0) Aspartate Amino Transferase (AST) 20U/L (15-37) Alanine Aminotransferase (ALT) 11U/L (14-59) L Alkaline Phosphatase 152U/L (46-116) H Total Protein 6.6g/dL (6.4-8.2) Albumin 3.4g/dL (3.4-5.0) Albumin/Globulin Ratio 1.1 (1.0-1.7) Valproic Acid Level 18mcg/mL (50-100) L Valproic Acid Last Dose Date 04/24/2016 Valproic Acid Last Dose Time 2100 Current Medications: Meds: Current Medications Potassium Chloride (KCl Oral Soln) 40 meq 1X ONCE PO Last administered on 04/17 13:12; Start 04/17/16 at 13:00; Stop 04/17/16 at 13:01; Status DC Acetaminophen (Tylenol) 650 mg PRN Q6HRS PRN PO PAIN / TEMP; Start 04/17/16 at 14:15; Status Cancel Potassium Chloride (Klor-Con) 20 meq BID66 PO Last administered on 04/19/16 05: 52; Start 04/17/16 at 18:00; Stop 04/19/16 at 07:00; Status DC Acetaminophen (Tylenol) 650 mg PRN Q6HRS PRN PO PAIN / TEMP; Start 04/17/16 at 15:30 Multi-Ingredient Ointment (Analgesic [place]) 1 beba PRN QID PRN TP MUSCLE PAIN; Start 04/17/16 at 15:30 Al Hydroxide/Mg Hydroxide (Mylanta Plus Xs) 15 ml PRN AFTMEALHC PRN PO DYSPEPSIA; Start 04/17/16 at 15:30 Magnesium Hydroxide (Milk Of Magnesia) 2,400 mg PRN QHS PRN PO CONSTIPATION; Start 04/17/16 at 15:30 Acetaminophen (Tylenol) 500 mg QID PO Last administered on 04/24/16 19:49; Start 04/17/16 at 17:00 Amantadine HCl (Symmetrel) 100 mg DAILY PO Last administered on 04/24/16 09:47 ; Start 04/18/16 at 09:00 Aripiprazole (Abilify) 10 mg HS PO Last administered on 04/22/16 20:14; Start 04/17/16 at 21:00; Stop 04/23/16 at 18:11; Status DC Aspirin (Children'S Aspirin) 81 mg DAILY PO Last administered on 04/24/16 09:49 ; Start 04/18/16 at 09:00 Bisoprolol Fumarate (Ziac 5-6.25) 1 tab DAILYWSUP PO ; Start 04/17/16 at 17:00; Stop 04/17/16 at 17:00; Status DC Carbidopa/Levodopa (Sinemet Cr) 1 tab.sa QID PO Last administered on 04/24/16 19:49; Start 04/17/16 at 17:00 Diphenhydramine HCl (Benadryl) 25 mg PRN Q4HRS PRN PO ITCHING; Start 04/17/16 at 15:30 Divalproex Sodium (Depakote) 250 mg BIDACLD PO Last administered on 04/22/16 16 :28; Start 04/17/16 at 16:30; Stop 04/22/16 at 18:52; Status DC Escitalopram Oxalate (Lexapro) 10 mg DAILY PO Last administered on 04/24/16 09: 47; Start 04/18/16 at 09:00 Ibuprofen (Motrin) 400 mg HS PO Last administered on 04/24/16 19:49; Start at 21:00 Levothyroxine Sodium (Synthroid) 100 mcg DAILY06 PO Last administered on 05:02; Start 04/18/16 at 06:00 Lorazepam (Ativan) 1 mg PRN Q8HRS PRN PO ANXIETY / AGITATION Last administered on 04/23/16 14:43; Start 04/17/16 at 15:30 Nystatin (Nystop) 1 beba PRN TID PRN TP ITCHING; Start 04/17/16 at 15:30 Phenytoin Sodium (Dilantin) 300 mg HS PO Last administered on 04/17/16 20:31; Start 04/17/16 at 21:00; Stop 04/18/16 at 16:28; Status DC Potassium Chloride (Klor-Con) 20 meq DAILY PO ; Start 04/18/16 at 09:00; Stop 04/18/16 at 09:00; Status DC Polyethyl Glycol/ Propylene Glycol (Systane 0.3-0.4% [facility]) 1 drop PRN QID PRN OU DRY EYE; Start 04/17/16 at 15:30 Multi-Ingredient Lotion (Cetaphil Moisturizing Lotion) 1 beba BID TP Last administered on 04/17/16 20:32; Start 04/17/16 at 21:00; Stop 04/18/16 at 15:18 ; Status DC Divalproex Sodium (Depakote) 500 mg DAILY PO Last administered on 04/24/16 09: 49; Start 04/18/16 at 09:00 Ibuprofen (Motrin) 200 mg PRN Q6HRS PRN PO PAIN; Start 04/17/16 at 15:45 Loperamide HCl (Imodium) 2 mg PRN Q15MIN PRN PO DIARRHEA; Start 04/17/16 at 15: 45 Multi-Ingred Cream/Lotion/Oil/ Oint (Hydrocerin) 1 beba QHS TP Last administered on 04/17/16 20:33; Start 04/17/16 at 15:45; Stop 04/18/16 at 15:17 ; Status DC Multivitamins/ Calcium (Thera-M Plus) 1 tab DAILY PO Last administered on 09:48; Start 04/18/16 at 09:00 Doxepin HCl (Sinequan) 10 mg QHS PO Last administered on 04/22/16 20:15; Start 04/17/16 at 21:00; Stop 04/23/16 at 16:55; Status DC Atenolol (Tenormin) 50 mg DAILYWSUP PO Last administered on 04/24/16 16:50; Start 04/17/16 at 17:00 Hydrochlorothiazide (Hydrodiuril) 6.25 mg DAILYWSUP PO Last administered on 04/24 16:49; Start 04/17/16 at 17:00 Potassium Chloride (Klor-Con) 20 meq DAILY PO Last administered on 04/24/16 09: 48; Start 04/20/16 at 09:00 Multi-Ingred Cream/Lotion/Oil/ Oint (Hydrocerin) 1 beba QHS TP Last administered on 04/24/16 19:50; Start 04/18/16 at 15:17 Multi-Ingredient Lotion (Cetaphil Moisturizing Lotion) 1 beba BID TP Last administered on 04/24/16 19:50; Start 04/18/16 at 15:18 Phenytoin Sodium (Dilantin) 400 mg HS PO Last administered on 04/19/16 20:31; Start 04/18/16 at 21:00; Stop 04/20/16 at 09:25; Status DC Lidocaine (Lidoderm) 1 patch DAILY TD Last administered on 04/24/16 09:50; Start 04/19/16 at 09:00 Oxcarbazepine (Trileptal) 150 mg BID PO Last administered on 04/21/16 08:39; Start 04/18/16 at 21:00; Stop 04/21/16 at 17:49; Status DC Mirtazapine (Remeron) 7.5 mg QHS PO Last administered on 04/24/16 19:49; Start 04/20/16 at 21:00 Divalproex Sodium (Depakote) 250 mg DAILYWLUN PO Last administered on 04/24/16 11:56; Start 04/23/16 at 12:00 Divalproex Sodium (Depakote) 500 mg DAILYWSUP PO Last administered on 04/24/16 16:49; Start 04/23/16 at 17:00 Risperidone (Risperdal) 0.5 mg QHS PO Last administered on 04/24/16 19:49; Start 04/23/16 at 21:00 Trazodone HCl (Desyrel) 50 mg QHS PO Last administered on 04/24/16 19:49; Start 04/23/16 at 21:00 Active Scripts Active Reported Trazodone Hcl 50 Mg Tablet 50 Mg PO PRN QHS PRN Remeron (Mirtazapine) 15 Mg Tablet 7.5 Mg PO HS Klor-Con M20 (Potassium Chloride) 20 Meq Tab.er.prt 20 Meq PO DAILY Systane 0.3-0.4% Eye Drops (Propylene Glycol/Peg 400) 15 Ml Drops 1 Drop EACHEYE PRN PRN Nystatin 15 Gm Powder 1 Beba TP PRN PRN Lorazepam 1 Mg Tablet 1 Mg PO PRN Q8HRS PRN Anti-Diarrhea (Loperamide Hcl) 2 Mg Tablet 2 Mg PO PRN PRN Ibuprofen 200 Mg Capsule 200 Mg PO PRN Q6HRS PRN Benadryl (Diphenhydramine Hcl) 25 Mg Capsule 25 Mg PO PRN Q4HRS PRN Tylenol Extra Strength (Acetaminophen) 500 Mg Tablet 500 Mg PO QID Carbidopa-Levo Er 50-200 Tab (Carbidopa/Levodopa) 1 Each Tablet.er 1 Each PO QID Depakote (Divalproex Sodium) 250 Mg Tablet.dr 250 Mg PO BIDACLD Cetaphil Cream (Cetyl Alc/Stearyl Alc/Pg/Sls) 454 Gm Cream..g. 1 Beba TP BID Thera-M (Multivits, W-,Other Min) 1 Each Tablet 1 Each PO DAILY Dilantin (Phenytoin Sodium Extended) 100 Mg Capsule 300 Mg PO HS Escitalopram Oxalate 10 Mg Tablet 10 Mg PO DAILY Levothyroxine Sodium 100 Mcg Tablet 100 Mcg PO DAILYAC Ibuprofen 400 Mg Tablet 400 Mg PO HS [doxapin] 10 Mg HS Depakote (Divalproex Sodium) 500 Mg Tablet.dr 500 Mg PO DAILY Bisoprolol-Hctz 5-6.25 Mg Tab (Bisoprolol Fumarate/Hctz) 1 Each Tablet 1 Tab PO DAILYWSUP Children's Aspirin (Aspirin) 81 Mg Tab.chew 81 Mg PO DAILY Amantadine (Amantadine Hcl) 100 Mg Capsule 100 Mg PO DAILY Abilify (Aripiprazole) 10 Mg Tablet 10 Mg PO HS Aquaphor Healing Ointment (Mineral Oil/Hydrophil Petrolat) 50 Gm Oint...g. 1 Beba TP HS Diagnosis: Problems: (1) Bipolar disorder with psychotic features (2) Bipolar affective, mixed (3) Anxiety disorder (4) Dementia in Alzheimer's disease with delusions (5) Dementia in Alzheimer's disease with depression (6) Impulse control disorder LOUANN ARCEO MD Apr 25, 2016 08:07
--- NOTE | 2016-04-25 08:16 | PN ---
DATE: 04/23/2016 PSYCHIATRIC PROGRESS NOTE This is a late entry 04/23/2016, covers elements not covered in my initial note. SUBJECTIVE: The patient did well on 04/22/2016 but evening of 04/22/2016, she was agitated; delusional; believes staff were trying to poison her. She is looking around, scanning the environment before sharing this with the nursing staff. She was up at night, did not sleep at all and we will start trazodone 50 mg at bedtime, may repeat x 1 p.r.n. for insomnia. REVIEW OF SYSTEMS: Ambulation impaired, in her wheelchair. No CV, , pulmonary, eye system symptoms on review. MENTAL STATUS EXAM: She is quite hard of hearing, alert, oriented to herself. Speech moderate latency, often responses monosyllabic, coherent. Abstraction fair, computation impaired, language function intact. Mood and affect somewhat labile, anxious. LABORATORY DATA: Reviewed. IMPRESSION: Psychotic disorder, unspecified; history of bipolar 1 disorder mixed with psychotic features; major neurocognitive disorder; early Alzheimer, vascular with delusion; depression. PLAN: Change Abilify 10 mg a day to Risperdal 0.5 mg at bedtime. Continue Depakote 500 mg in the morning and night and 250 mg in the afternoon. Repeat labs level since the previous level was 13. Continue Ativan p.r.n., Benadryl p.r.n., Remeron 7.5 mg at bedtime, Lexapro 10 mg a day. Adjust further as clinically indicated. LOUANN ARCEO MD DR: BETSY/brandie JOB#: [id number] / [id number]
[2016-04-25] MEDS: POTASSIUM CHLORIDE 20 MEQ TABLET.ER. PO SCH (09:34)
[2016-04-25] MEDS: ESCITALOPRAM 10 MG TABLET. PO SCH (09:34)
[2016-04-25] MEDS: ACETAMINOPHEN 500 MG TABLET PO SCH ×4 (09:35→19:51)
[2016-04-25] MEDS: DIVALPROEX SODIUM 250 MG TABLET.DR. PO SCH ×3 (09:35→16:47)
[2016-04-25] MEDS: LIDOCAINE (700MG/PATCH) PATCH. TD SCH (09:35)
[2016-04-25] MEDS: MULTIVITAMIN with MINERAL TABLET. PO SCH (09:35)
[2016-04-25] MEDS: CARBIDOPA/LEVODOPA CR 50/200MG TABLET.SA PO SCH ×4 (09:35→19:51)
[2016-04-25] MEDS: ASPIRIN 81 MG TAB.CHEW PO SCH (09:35)
[2016-04-25] MEDS: AMANTADINE HCL 100 MG CAPSULE PO SCH (09:36)
[2016-04-25] MEDS: CETAPHIL TP SCH ×2 (09:36→19:52)
[2016-04-25 16:21] VITALS: BP 128/55
[2016-04-25] MEDS: HYDROCHLOROTHIAZIDE 25 MG TABLET PO SCH (16:47)
[2016-04-25] MEDS: ATENOLOL 50 MG TABLET PO SCH (16:47)
--- NOTE | 2016-04-25 18:58 | PN ---
DATE: 04/20/2016 SUBJECTIVE: The patient denies any new medical or neurological complaints. She has not had any seizures since admission. An EEG has been ordered. It will be done tomorrow. Dilantin level is subtherapeutic at 4.9 on 04/18/2016. OBJECTIVE: GENERAL: Well-developed, well-nourished white female, not in acute distress. VITAL SIGNS: Blood pressure 110/70, respiratory rate 18, pulse is 60 and regular, temperature 97.8, oxygen saturation is 98% on room air. HEENT: Normocephalic, atraumatic; otherwise, unremarkable. NECK: Supple. Negative for carotid bruit, lymphadenopathy or thyromegaly. LUNGS: Clear to A and P. CARDIOVASCULAR: Regular rhythm, normal S1, S2. There is no S3, S4 or murmur. ABDOMEN: Soft. Bowel sounds positive. EXTREMITIES: Negative for cyanosis, clubbing or pitting edema. NEUROLOGICAL EXAM: Mental Status: The patient is alert to herself and place. She is disoriented to time; otherwise, memory, judgment, and abstract thinkings are fair. Cranial nerves are intact. No focal motor or sensory deficits. Motor examination, no focal muscle bulk was seen. The strength was 4/5 throughout. Sensory examination revealed normal pinprick and light touch senses throughout. Deep tendon reflexes are symmetric and hypoactive with absent Achilles responses. Gait, the patient has unsteady stance. She ambulates with a wheelchair. IMPRESSION: 1. History of seizure disorder of unknown etiology. 2. Parkinson disease - stable. 3. Multiple medical problems include hypertension, hypothyroidism, vitamin D deficiency. 4. Multiple psychiatric problems include depression and dementia. 5. Chronic low back pain. RECOMMENDATIONS: 1. Await for EEG. 2. We will discontinue Dilantin if EEG is negative for active seizure; otherwise, continue with current management initiated by Dr. Dodd and Dr. Palmer. M Mis SIDHU MD DR: KIRSTEN/brandie JOB#: [id number] / [id number]
--- NOTE | 2016-04-25 19:18 | PN ---
DATE: 04/22/2016 SUBJECTIVE: The patient denies any new medical neurological complaints. She has not had any recurrent seizures. The Dilantin was discontinued yesterday. She eats and drinks well. On occasions, the patient becomes agitated and combative. OBJECTIVE: GENERAL: Well-developed, well-nourished white female, not in acute distress. VITAL SIGNS: Blood pressure 141/88, respiratory rate 20, pulse 59 and regular, temperature 97.7, oxygen saturation 98% on room air. HEENT: Normocephalic, atraumatic, otherwise unremarkable. NECK: Supple. Negative for carotid bruit, lymphadenopathy or thyromegaly. LUNGS: Clear to A and P. CARDIOVASCULAR: Regular rate and rhythm, normal S1, S2. There is no S3, S4 or murmur. ABDOMEN: Soft. Bowel sounds positive. EXTREMITIES: Negative for cyanosis, clubbing or pitting edema. NEUROLOGICAL EXAM: Mental Status: The patient is alert and oriented to herself. The speech is fluent. There is no language dysfunction. Memory, judgment and abstract thinking are fair. The cranial nerves are grossly intact. Motor Examination: No focal muscle bulk was seen. The tone is normal. There is no obvious resting tremor. Sensory examination, the strength was 4/5 throughout. Sensory examination: Normal pinprick and light touch senses throughout. Deep tendon reflexes were symmetric and hypoactive with absent Achilles responses. Gait: The stance is unsteady. The patient ambulates with a wheelchair. LABORATORY DATA: Valproic acid is low at 13. CBC revealed white blood cells of 7.2 thousand, hemoglobin 13.4, hematocrit 40.8, platelet count 276,000. Chemistry revealed sodium of 144, potassium 3.5, chloride 104, CO2 of 30, BUN 17, creatinine 0.7, glucose 95, calcium is 8.5, alkaline phosphatase is elevated at 153. IMPRESSION: 1. History of seizure disorder without recurrence; however, Dilantin was discontinued on 04/21/2016. 2. Parkinson disease -- stable. 3. Multiple medical problems including hypothyroidism, vitamin D deficiency, hypertension. 4. Multiple psychiatric problems including anxiety, depression and possible bipolar and dementia. 5. Chronic lower back pain and hip pain. RECOMMENDATIONS: 1. We will start tapering Trileptal gradually. 2. Continue with current management initiated by Dr. Dodd and continue with current medications for Parkinson disease. M Mis SIDHU MD DR: KIRSTEN/brandie JOB#: [id number] / [id number]
--- NOTE | 2016-04-25 19:19 | PN ---
DATE: 04/21/2016 SUBJECTIVE: The patient denies any new medical or neurological complaints. She denies recurrent seizure. The patient has had a history of seizure for several years, but etiology is unknown. The patient is unable to provide any information regarding her seizure. OBJECTIVE: GENERAL: Well-developed, well-nourished white female, not in acute distress. VITAL SIGNS: Blood pressure is 113/81, respiratory rate 20, pulse is 67, afebrile, oxygen saturation 97% on room air. HEENT: Normocephalic, atraumatic; otherwise, unremarkable. NECK: Supple. Negative for carotid bruit, lymphadenopathy or thyromegaly. LUNGS: Clear to A and P. CARDIOVASCULAR: Regular rate and rhythm, normal S1, S2. ABDOMEN: Soft. Bowel sounds positive. EXTREMITIES: Negative for cyanosis, clubbing or pitting edema. NEUROLOGICAL EXAM: Mental status, the patient is alert and oriented to place and herself. Speech is fluent. There is no language dysfunction. Memory, judgment, and abstraction thinking are fair. The patient denies hallucination or delusion. Cranial nerves are grossly intact. Motor examination, no focal muscle bulk was seen. The tone is normal. The strength is 4/5 throughout. The patient does not have any resting tremors. Sensory examination, normal pinprick, light touch, vibratory and position senses. Deep tendon reflexes are symmetric and hypoactive. Gait, the patient has unsteady stance. ELECTROENCEPHALOGRAM DESCRIPTION: This is a digital 18-channel EEG that was performed using the standard [employer] 10-20 electrode placement system. Photic stimulation was used as an activation procedure and hyperventilation was not performed. The patient was not sleep deprived. The patient was not sedated. The EEG obtained with the patient in the drowsy state characterized by posterior dominant rhythm of 6-7 cycles per second with amplitude of 35-50 microvolts. It was bilaterally symmetric without attenuation with eye opening. The patient achieved stage 2 sleep characterized by slowing of the posterior dominant rhythm and attenuation of the amplitudes, vertex sharp waves, and generalized slowing of theta activity at frequency 4-5 to 6 cycles per second also seen during the . Photic stimulation produced no driving responses and hyperventilation was not performed because of the drowsiness. No epileptiform activities were seen throughout the recording. The lack of epileptiform discharge does not always rule out seizure; therefore, clinical correlation is advised. IMPRESSION: 1. History of seizure disorder of unknown etiology. 2. Negative EEG for seizure activity. 3. Parkinson disease. 4. Multiple medical and psychiatric problems. RECOMMENDATIONS: We will discontinue phenytoin and continue with Trileptal and Depakote for seizure as well as for mood stabilization. Otherwise, continue with current management initiated by Dr. Palmer and Dr. Dodd for psychiatric disorders. M Mis SIDHU MD DR: KIRSTEN/brandie JOB#: [id number] / [id number]
--- NOTE | 2016-04-25 19:30 | PN ---
DATE: 04/24/2016 SUBJECTIVE: The patient denies any new medical or neurological complaints. She has not had seizure since admission and since discontinuing Dilantin. Apparently, the Trileptal was discontinued yesterday 04/23/[address] Dodd and so far the patient has not had any seizure. She denies headaches, visual disturbances, nausea, vomiting, chest pain, shortness of breath, palpitation, dysarthria or dysphagia. The patient drinks and eats well. She has not had any fall since admission. OBJECTIVE: GENERAL: Well-developed, well-nourished white female, not in acute distress. VITAL SIGNS: Blood pressure 146/69, respiratory rate 18, pulse 58, temperature 97.4, oxygen saturation 98% on room air. HEENT: Normocephalic, atraumatic, otherwise unremarkable. NECK: Supple. Negative for carotid bruit, lymphadenopathy or thyromegaly. LUNGS: Clear to A and P. CARDIOVASCULAR: Regular rate and rhythm, normal S1, S2. There is no S3, S4 or murmur. ABDOMEN: Soft. Bowel sounds positive. EXTREMITIES: Negative for cyanosis, clubbing or pitting edema. NEUROLOGICAL EXAM: Mental Status: The patient is alert and oriented to place and self. She is also alert to time this morning, the speech is fluent. There is no language dysfunction. Memory, judgment, and abstract thinking are fair. The patient denies hallucination or delusion. Cranial nerves are intact. No focal motor or sensory deficit. The The patient has no resting or postural tremors of the upper extremities. Gait: The stance is unsteady. The patient needed assistance to stand up. She cannot walk without assistance. Deep tendon reflexes were symmetric and hypoactive with absent Achilles responses. LABORATORY DATA: T4 level is normal at 5.8 and T3 at 124. IMPRESSION: 1. History of seizure of unknown etiology. The patient has been 2 anticonvulsants now including Dilantin and Trileptal. She will be on Depakote, and the dose will be adjusted Dr. Dodd to obtain a therapeutic level. 2. Parkinson disease -- stable. 3. Multiple medical problems including hypertension, hypothyroidism and vitamin D deficiency. 4. Multiple psychiatric problems including anxiety, depression and possible bipolar. 5. Chronic lower back pain. RECOMMENDATIONS: Continue with current management initiated by Dr. Dodd and Dr. Spencer. M Mis SIDHU MD DR: Kvng JOB#: [id number] / [id number]
[2016-04-25] MEDS: MIRTAZAPINE 7.5 MG TABLET. PO SCH (19:52)
[2016-04-25] MEDS: IBUPROFEN 400 MG TABLET. PO SCH (19:52)
[2016-04-25] MEDS: traZODone 50 MG TABLET. PO SCH (19:52)
[2016-04-25] MEDS: risperiDONE 0.5 MG TABLET. PO SCH (19:52)
[2016-04-25] MEDS: MINERAL OIL/PETROLATUM TOPICAL CREAM 113GM JAR. TP SCH (21:00)
--- NOTE | 2016-04-25 22:06 | PN ---
DATE: 04/24/2016 This is a late entry for 04/24/2016 and covers elements not covered in my initial note. SUBJECTIVE: The patient was paranoid the previous night. Trazodone helped with the insomnia and during the day on 04/24/2016, she was much calmer, less paranoid, suspicious, still gets confused, forgetful, states she wanted to go to latter-day, felt she was at the latter-day service. REVIEW OF SYSTEMS: Ambulation impaired. No CV, , pulmonary, eye system symptoms on review. MENTAL STATUS EXAM: Oriented to herself, at times to situation. Speech coherent, abstraction fair, computation impaired, language function intact, short term memory is impaired. No active suicidal or homicidal ideation. LABORATORY DATA: Reviewed. IMPRESSION: Bipolar 1 disorder, mixed with psychotic features; major neurocognitive disorder, early Alzheimer, vascular with delusions, anxiety disorder, unspecified. PLAN: Continue Depakote, Ativan, Remeron 7.5 mg at bedtime, Lexapro 10 mg a day, Risperdal 0.5 mg at bedtime, trazodone 50 at bedtime, may repeat x 1. Adjust further as clinically indicated. Abilify was discontinued. LOUANN ARCEO MD DR: BETSY/brandie JOB#: [id number] / [id number]
[2016-04-26 06:03] VITALS: BP 115/70
[2016-04-26] MEDS: LEVOTHYROXINE 100 MCG TABLET PO SCH (06:28)
[2016-04-26] MEDS: POTASSIUM CHLORIDE 20 MEQ TABLET.ER. PO SCH (09:12)
[2016-04-26] MEDS: MULTIVITAMIN with MINERAL TABLET. PO SCH (09:12)
[2016-04-26] MEDS: ACETAMINOPHEN 500 MG TABLET PO SCH ×4 (09:12→20:14)
[2016-04-26] MEDS: DIVALPROEX SODIUM 250 MG TABLET.DR. PO SCH ×3 (09:12→17:36)
[2016-04-26] MEDS: ASPIRIN 81 MG TAB.CHEW PO SCH (09:12)
[2016-04-26] MEDS: CARBIDOPA/LEVODOPA CR 50/200MG TABLET.SA PO SCH ×4 (09:12→20:14)
[2016-04-26] MEDS: ESCITALOPRAM 10 MG TABLET. PO SCH (09:12)
[2016-04-26] MEDS: LIDOCAINE (700MG/PATCH) PATCH. TD SCH (09:13)
[2016-04-26] MEDS: CETAPHIL TP SCH ×2 (09:14→20:15)
[2016-04-26] MEDS: AMANTADINE HCL 100 MG CAPSULE PO SCH (09:14)
[2016-04-26 17:32] VITALS: BP 134/76
[2016-04-26] MEDS: ATENOLOL 50 MG TABLET PO SCH (17:37)
[2016-04-26] MEDS: HYDROCHLOROTHIAZIDE 25 MG TABLET PO SCH (17:38)
[2016-04-26] MEDS: traZODone 50 MG TABLET. PO SCH (20:13)
[2016-04-26] MEDS: MIRTAZAPINE 7.5 MG TABLET. PO SCH (20:14)
[2016-04-26] MEDS: IBUPROFEN 400 MG TABLET. PO SCH (20:14)
[2016-04-26] MEDS: risperiDONE 0.5 MG TABLET. PO SCH (20:15)
[2016-04-26] MEDS: MINERAL OIL/PETROLATUM TOPICAL CREAM 113GM JAR. TP SCH (20:15)
[2016-04-27] MEDS: LEVOTHYROXINE 100 MCG TABLET PO SCH (05:17)
[2016-04-27 06:31] VITALS: BP 122/57
--- NOTE | 2016-04-27 06:45 | PN ---
DATE: 04/25/2016 This is a late entry for 04/25/2016 and covers elements not covered in my initial note. Overall, per nursing report, the patient slept about 8 hours, suspicious. Her niece visited. REVIEW OF SYSTEMS: Hard of hearing, impaired ambulation, in a wheelchair. No CV, , pulmonary, eye system symptoms on review. MENTAL STATUS EXAM: Oriented to herself and situation. Speech coherent, abstraction fair. Short term memory is impaired. Language function intact, attention span short. Mood and affect, intermittently labile. LABORATORY DATA: Reviewed. IMPRESSION: Bipolar 1 disorder, mixed with psychotic features; cognitive disorder, unspecified versus major neurocognitive disorder, early Alzheimer, vascular with delusions. Rest of diagnoses unchanged. PLAN: Continue current psychotropics, Abilify was discontinued, Risperdal 0.5 mg at bedtime, may need to be increased psychotic symptoms resurface. MAN Mary ARCEO MD DR: BETSY/brandie JOB#: [id number] / [id number]
[2016-04-27] MEDS: DIVALPROEX SODIUM 250 MG TABLET.DR. PO SCH ×3 (08:10→17:37)
[2016-04-27] MEDS: LIDOCAINE (700MG/PATCH) PATCH. TD SCH (08:10)
[2016-04-27] MEDS: ASPIRIN 81 MG TAB.CHEW PO SCH (08:12)
[2016-04-27] MEDS: ACETAMINOPHEN 500 MG TABLET PO SCH ×4 (08:12→20:21)
[2016-04-27] MEDS: MULTIVITAMIN with MINERAL TABLET. PO SCH (08:12)
[2016-04-27] MEDS: CARBIDOPA/LEVODOPA CR 50/200MG TABLET.SA PO SCH ×4 (08:12→20:21)
[2016-04-27] MEDS: ESCITALOPRAM 10 MG TABLET. PO SCH (08:12)
[2016-04-27] MEDS: POTASSIUM CHLORIDE 20 MEQ TABLET.ER. PO SCH (08:12)
[2016-04-27] MEDS: AMANTADINE HCL 100 MG CAPSULE PO SCH (08:13)
[2016-04-27] MEDS: CETAPHIL TP SCH ×2 (08:13→20:21)
[2016-04-27 15:39] VITALS: BP 112/56
[2016-04-27] MEDS: HYDROCHLOROTHIAZIDE 25 MG TABLET PO SCH (17:00)
[2016-04-27] MEDS: ATENOLOL 50 MG TABLET PO SCH (17:00)
[2016-04-27] MEDS: traZODone 50 MG TABLET. PO SCH (20:20)
[2016-04-27] MEDS: IBUPROFEN 400 MG TABLET. PO SCH (20:20)
[2016-04-27] MEDS: MIRTAZAPINE 7.5 MG TABLET. PO SCH (20:20)
[2016-04-27] MEDS: risperiDONE 0.5 MG TABLET. PO SCH (20:21)
[2016-04-27] MEDS: MINERAL OIL/PETROLATUM TOPICAL CREAM 113GM JAR. TP SCH (20:21)
--- NOTE | 2016-04-27 20:51 | PDOC ---
Exam Andrea Demential Exam: Andrea Note: Please also refer to the separate dictated note~for this date of service dictated separately.~Patient seen individually. Discussed the patient with Nursing staff reviewed the chart.~Reviewed interim history and current functioning. Reviewed vital signs,~Labs/ Radiology~and current medications noted below. Continue current treatment with the changes noted in the dictated addendum note Assessment: Vital Signs: Vital Signs Date Time Temp Pulse Resp B/P Pulse Ox O2 Delivery O2 Flow Rate FiO2 04/27/16 17:00 62 112/56 04/27/16 15:39 97.6 18 98 04/23/16 16:29 Room Air I&O Intake and Output 04/27/16 07:00 Intake Total 380 ml Balance 380 ml Intake Oral 380 ml Current Medications: Meds: Current Medications Potassium Chloride (KCl Oral Soln) 40 meq 1X ONCE PO Last administered on 04/17 13:12; Start 04/17/16 at 13:00; Stop 04/17/16 at 13:01; Status DC Acetaminophen (Tylenol) 650 mg PRN Q6HRS PRN PO PAIN / TEMP; Start 04/17/16 at 14:15; Status Cancel Potassium Chloride (Klor-Con) 20 meq BID66 PO Last administered on 04/19/16 05: 52; Start 04/17/16 at 18:00; Stop 04/19/16 at 07:00; Status DC Acetaminophen (Tylenol) 650 mg PRN Q6HRS PRN PO PAIN / TEMP Last administered on 04/27/16 15:55; Start 04/17/16 at 15:30 Multi-Ingredient Ointment (Analgesic [place]) 1 beba PRN QID PRN TP MUSCLE PAIN; Start 04/17/16 at 15:30 Al Hydroxide/Mg Hydroxide (Mylanta Plus Xs) 15 ml PRN AFTMEALHC PRN PO DYSPEPSIA; Start 04/17/16 at 15:30 Magnesium Hydroxide (Milk Of Magnesia) 2,400 mg PRN QHS PRN PO CONSTIPATION; Start 04/17/16 at 15:30 Acetaminophen (Tylenol) 500 mg QID PO Last administered on 04/27/16 20:21; Start 04/17/16 at 17:00 Amantadine HCl (Symmetrel) 100 mg DAILY PO Last administered on 04/27/16 08:13 ; Start 04/18/16 at 09:00 Aripiprazole (Abilify) 10 mg HS PO Last administered on 04/22/16 20:14; Start 04/17/16 at 21:00; Stop 04/23/16 at 18:11; Status DC Aspirin (Children'S Aspirin) 81 mg DAILY PO Last administered on 04/27/16 08: 12; Start 04/18/16 at 09:00 Bisoprolol Fumarate (Ziac 5-6.25) 1 tab DAILYWSUP PO ; Start 04/17/16 at 17:00; Stop 04/17/16 at 17:00; Status DC Carbidopa/Levodopa (Sinemet Cr) 1 tab.sa QID PO Last administered on 04/27/16 20:21; Start 04/17/16 at 17:00 Diphenhydramine HCl (Benadryl) 25 mg PRN Q4HRS PRN PO ITCHING; Start 04/17/16 at 15:30 Divalproex Sodium (Depakote) 250 mg BIDACLD PO Last administered on 04/22/16 16 :28; Start 04/17/16 at 16:30; Stop 04/22/16 at 18:52; Status DC Escitalopram Oxalate (Lexapro) 10 mg DAILY PO Last administered on 04/27/16 08 :12; Start 04/18/16 at 09:00 Ibuprofen (Motrin) 400 mg HS PO Last administered on 04/27/16 20:20; Start at 21:00 Levothyroxine Sodium (Synthroid) 100 mcg DAILY06 PO Last administered on 05:17; Start 04/18/16 at 06:00 Lorazepam (Ativan) 1 mg PRN Q8HRS PRN PO ANXIETY / AGITATION Last administered on 04/23/16 14:43; Start 04/17/16 at 15:30 Nystatin (Nystop) 1 beba PRN TID PRN TP ITCHING; Start 04/17/16 at 15:30 Phenytoin Sodium (Dilantin) 300 mg HS PO Last administered on 04/17/16 20:31; Start 04/17/16 at 21:00; Stop 04/18/16 at 16:28; Status DC Potassium Chloride (Klor-Con) 20 meq DAILY PO ; Start 04/18/16 at 09:00; Stop 04/18/16 at 09:00; Status DC Polyethyl Glycol/ Propylene Glycol (Systane 0.3-0.4% Oph) 1 drop PRN QID PRN OU DRY EYE; Start 04/17/16 at 15:30 Multi-Ingredient Lotion (Cetaphil Moisturizing Lotion) 1 beba BID TP Last administered on 04/17/16 20:32; Start 04/17/16 at 21:00; Stop 04/18/16 at 15:18 ; Status DC Divalproex Sodium (Depakote) 500 mg DAILY PO Last administered on 04/27/16 08: 10; Start 04/18/16 at 09:00 Ibuprofen (Motrin) 200 mg PRN Q6HRS PRN PO PAIN; Start 04/17/16 at 15:45 Loperamide HCl (Imodium) 2 mg PRN Q15MIN PRN PO DIARRHEA; Start 04/17/16 at 15: 45 Multi-Ingred Cream/Lotion/Oil/ Oint (Hydrocerin) 1 beba QHS TP Last administered on 04/17/16 20:33; Start 04/17/16 at 15:45; Stop 04/18/16 at 15:17 ; Status DC Multivitamins/ Calcium (Thera-M Plus) 1 tab DAILY PO Last administered on 08:12; Start 04/18/16 at 09:00 Doxepin HCl (Sinequan) 10 mg QHS PO Last administered on 04/22/16 20:15; Start 04/17/16 at 21:00; Stop 04/23/16 at 16:55; Status DC Atenolol (Tenormin) 50 mg DAILYWSUP PO Last administered on 04/26/16 17:37; Start 04/17/16 at 17:00 Hydrochlorothiazide (Hydrodiuril) 6.25 mg DAILYWSUP PO Last administered on 04/26 17:38; Start 04/17/16 at 17:00 Potassium Chloride (Klor-Con) 20 meq DAILY PO Last administered on 04/27/16 08 :12; Start 04/20/16 at 09:00 Multi-Ingred Cream/Lotion/Oil/ Oint (Hydrocerin) 1 beba QHS TP Last administered on 04/27/16 20:21; Start 04/18/16 at 15:17 Multi-Ingredient Lotion (Cetaphil Moisturizing Lotion) 1 beba BID TP Last administered on 04/27/16 20:21; Start 04/18/16 at 15:18 Phenytoin Sodium (Dilantin) 400 mg HS PO Last administered on 04/19/16 20:31; Start 04/18/16 at 21:00; Stop 04/20/16 at 09:25; Status DC Lidocaine (Lidoderm) 1 patch DAILY TD Last administered on 04/27/16 08:10; Start 04/19/16 at 09:00 Oxcarbazepine (Trileptal) 150 mg BID PO Last administered on 04/21/16 08:39; Start 04/18/16 at 21:00; Stop 04/21/16 at 17:49; Status DC Mirtazapine (Remeron) 7.5 mg QHS PO Last administered on 04/27/16 20:20; Start 04/20/16 at 21:00 Divalproex Sodium (Depakote) 250 mg DAILYWLUN PO Last administered on 12:31; Start 04/23/16 at 12:00 Divalproex Sodium (Depakote) 500 mg DAILYWSUP PO Last administered on 17:37; Start 04/23/16 at 17:00 Risperidone (Risperdal) 0.5 mg QHS PO Last administered on 04/25/16 19:52; Start 04/23/16 at 21:00; Stop 04/26/16 at 10:23; Status DC Trazodone HCl (Desyrel) 50 mg QHS PO Last administered on 04/27/16 20:20; Start 04/23/16 at 21:00 Risperidone (Risperdal) 0.75 mg QHS PO Last administered on 04/27/16 20:21; Start 04/26/16 at 21:00 Active Scripts Active Reported Trazodone Hcl 50 Mg Tablet 50 Mg PO PRN QHS PRN Remeron (Mirtazapine) 15 Mg Tablet 7.5 Mg PO HS Klor-Con M20 (Potassium Chloride) 20 Meq Tab.er.prt 20 Meq PO DAILY Systane 0.3-0.4% Eye Drops (Propylene Glycol/Peg 400) 15 Ml Drops 1 Drop EACHEYE PRN PRN Nystatin 15 Gm Powder 1 Beba TP PRN PRN Lorazepam 1 Mg Tablet 1 Mg PO PRN Q8HRS PRN Anti-Diarrhea (Loperamide Hcl) 2 Mg Tablet 2 Mg PO PRN PRN Ibuprofen 200 Mg Capsule 200 Mg PO PRN Q6HRS PRN Benadryl (Diphenhydramine Hcl) 25 Mg Capsule 25 Mg PO PRN Q4HRS PRN Tylenol Extra Strength (Acetaminophen) 500 Mg Tablet 500 Mg PO QID Carbidopa-Levo Er 50-200 Tab (Carbidopa/Levodopa) 1 Each Tablet.er 1 Each PO QID Depakote (Divalproex Sodium) 250 Mg Tablet.dr 250 Mg PO BIDACLD Cetaphil Cream (Cetyl Alc/Stearyl Alc/Pg/Sls) 454 Gm Cream..g. 1 Beba TP BID Thera-M (Multivits,-,Other Min) 1 Each Tablet 1 Each PO DAILY Dilantin (Phenytoin Sodium Extended) 100 Mg Capsule 300 Mg PO HS Escitalopram Oxalate 10 Mg Tablet 10 Mg PO DAILY Levothyroxine Sodium 100 Mcg Tablet 100 Mcg PO DAILYAC Ibuprofen 400 Mg Tablet 400 Mg PO HS [doxapin] 10 Mg HS Depakote (Divalproex Sodium) 500 Mg Tablet.dr 500 Mg PO DAILY Bisoprolol-Hctz 5-6.25 Mg Tab (Bisoprolol Fumarate/Hctz) 1 Each Tablet 1 Tab PO DAILYWSUP Children's Aspirin (Aspirin) 81 Mg Tab.chew 81 Mg PO DAILY Amantadine (Amantadine Hcl) 100 Mg Capsule 100 Mg PO DAILY Abilify (Aripiprazole) 10 Mg Tablet 10 Mg PO HS Aquaphor Healing Ointment (Mineral Oil/Hydrophil Petrolat) 50 Gm Oint...g. 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
[2016-04-28] MEDS: LEVOTHYROXINE 100 MCG TABLET PO SCH (05:29)
[2016-04-28 05:54] VITALS: BP 136/49
[2016-04-28] MEDS: MULTIVITAMIN with MINERAL TABLET. PO SCH (09:14)
[2016-04-28] MEDS: DIVALPROEX SODIUM 250 MG TABLET.DR. PO SCH ×3 (09:15→17:12)
[2016-04-28] MEDS: CETAPHIL TP SCH ×2 (09:15→20:17)
[2016-04-28] MEDS: ASPIRIN 81 MG TAB.CHEW PO SCH (09:15)
[2016-04-28] MEDS: ACETAMINOPHEN 500 MG TABLET PO SCH ×4 (09:15→20:16)
[2016-04-28] MEDS: CARBIDOPA/LEVODOPA CR 50/200MG TABLET.SA PO SCH ×4 (09:15→20:16)
[2016-04-28] MEDS: POTASSIUM CHLORIDE 20 MEQ TABLET.ER. PO SCH (09:15)
[2016-04-28] MEDS: ESCITALOPRAM 10 MG TABLET. PO SCH (09:15)
[2016-04-28] MEDS: AMANTADINE HCL 100 MG CAPSULE PO SCH (09:16)
[2016-04-28] MEDS: LIDOCAINE (700MG/PATCH) PATCH. TD SCH (09:18)
[2016-04-28 16:18] VITALS: BP 130/78
[2016-04-28] MEDS: ATENOLOL 50 MG TABLET PO SCH (17:13)
[2016-04-28] MEDS: HYDROCHLOROTHIAZIDE 25 MG TABLET PO SCH (17:13)
--- NOTE | 2016-04-28 18:06 | PN ---
DATE: 04/26/2016 PSYCHIATRIC PROGRESS NOTE This is a late entry for 04/26/2016. SUBJECTIVE: The patient was seen on rounds the evening of 04/26/2016. Discussed with nursing staff, reviewed the chart. Temperature 97.8, BP 115/70, pulse 56, respirations 20. The patient was also staffed at a treatment team meeting with the entire team morning of 04/26/2016 review the progress, diagnosis, and discharge plans. Labs unremarkable, alkaline phosphatase 152, sleeping about 7-1/2 hours. Appetite 75% less hyper-synagogue. REVIEW OF SYSTEMS: Ambulation impaired, hard of hearing in a wheelchair. No CV, , pulmonary, eye system symptoms on review. MENTAL STATUS EXAM: Oriented to herself and situation. Speech coherent, abstraction fair, computation impaired, language function intact. Mood and affect somewhat dysphoric. LABORATORY DATA: Reviewed. IMPRESSION: Bipolar 1 disorder, mixed anxiety disorder, unspecified; cognitive disorder, unspecified. PLAN: Increase Risperdal from 0.5 mg at bedtime to 0.75 mg at bedtime, maintain Lexapro 10 mg a day, trazodone 50 at bedtime, Benadryl p.r.n., Remeron 7.5 mg at bedtime, Depakote 500 b.i.d. to 250 mg a day, Ativan p.r.n., Benadryl p.r.n. Adjust as indicated. MAN Mary ARCEO MD DR: BETSY/brandie JOB#: [id number] / [id number]
--- NOTE | 2016-04-28 18:25 | PDOC ---
Exam Andrea Demential Exam: Andrea Note: Please also refer to the separate dictated note~for this date of service dictated separately.~Patient seen individually. Discussed the patient with Nursing staff reviewed the chart.~Reviewed interim history and current functioning. Reviewed vital signs,~Labs/ Radiology~and current medications noted below. Continue current treatment with the changes noted in the dictated addendum note Assessment: Vital Signs: Vital Signs Date Time Temp Pulse Resp B/P Pulse Ox O2 Delivery O2 Flow Rate FiO2 04/28/16 17:13 69 130/78 04/28/16 16:18 97.0 20 98 04/23/16 16:29 Room Air I&O Intake and Output 04/28/16 07:00 Intake Total 720 ml Balance 720 ml Intake Oral 720 ml # Voids 1 # Bowel Movements 1 Current Medications: Meds: Current Medications Potassium Chloride (KCl Oral Soln) 40 meq 1X ONCE PO Last administered on 04/17 13:12; Start 04/17/16 at 13:00; Stop 04/17/16 at 13:01; Status DC Acetaminophen (Tylenol) 650 mg PRN Q6HRS PRN PO PAIN / TEMP; Start 04/17/16 at 14:15; Status Cancel Potassium Chloride (Klor-Con) 20 meq BID66 PO Last administered on 04/19/16 05: 52; Start 04/17/16 at 18:00; Stop 04/19/16 at 07:00; Status DC Acetaminophen (Tylenol) 650 mg PRN Q6HRS PRN PO PAIN / TEMP Last administered on 04/27/16 15:55; Start 04/17/16 at 15:30 Multi-Ingredient Ointment (Analgesic [place]) 1 beba PRN QID PRN TP MUSCLE PAIN; Start 04/17/16 at 15:30 Al Hydroxide/Mg Hydroxide (Mylanta Plus Xs) 15 ml PRN AFTMEALHC PRN PO DYSPEPSIA; Start 04/17/16 at 15:30 Magnesium Hydroxide (Milk Of Magnesia) 2,400 mg PRN QHS PRN PO CONSTIPATION; Start 04/17/16 at 15:30 Acetaminophen (Tylenol) 500 mg QID PO Last administered on 04/28/16 17:14; Start 04/17/16 at 17:00 Amantadine HCl (Symmetrel) 100 mg DAILY PO Last administered on 04/28/16 09:16 ; Start 04/18/16 at 09:00 Aripiprazole (Abilify) 10 mg HS PO Last administered on 04/22/16 20:14; Start 04/17/16 at 21:00; Stop 04/23/16 at 18:11; Status DC Aspirin (Children'S Aspirin) 81 mg DAILY PO Last administered on 04/28/16 09: 15; Start 04/18/16 at 09:00 Bisoprolol Fumarate (Ziac 5-6.25) 1 tab DAILYWSUP PO ; Start 04/17/16 at 17:00; Stop 04/17/16 at 17:00; Status DC Carbidopa/Levodopa (Sinemet Cr) 1 tab.sa QID PO Last administered on 04/28/16 17:14; Start 04/17/16 at 17:00 Diphenhydramine HCl (Benadryl) 25 mg PRN Q4HRS PRN PO ITCHING; Start 04/17/16 at 15:30 Divalproex Sodium (Depakote) 250 mg BIDACLD PO Last administered on 04/22/16 16 :28; Start 04/17/16 at 16:30; Stop 04/22/16 at 18:52; Status DC Escitalopram Oxalate (Lexapro) 10 mg DAILY PO Last administered on 04/28/16 09 :15; Start 04/18/16 at 09:00 Ibuprofen (Motrin) 400 mg HS PO Last administered on 04/27/16 20:20; Start at 21:00 Levothyroxine Sodium (Synthroid) 100 mcg DAILY06 PO Last administered on 05:29; Start 04/18/16 at 06:00 Lorazepam (Ativan) 1 mg PRN Q8HRS PRN PO ANXIETY / AGITATION Last administered on 04/23/16 14:43; Start 04/17/16 at 15:30 Nystatin (Nystop) 1 beba PRN TID PRN TP ITCHING; Start 04/17/16 at 15:30 Phenytoin Sodium (Dilantin) 300 mg HS PO Last administered on 04/17/16 20:31; Start 04/17/16 at 21:00; Stop 04/18/16 at 16:28; Status DC Potassium Chloride (Klor-Con) 20 meq DAILY PO ; Start 04/18/16 at 09:00; Stop 04/18/16 at 09:00; Status DC Polyethyl Glycol/ Propylene Glycol (Systane 0.3-0.4% Ophth) 1 drop PRN QID PRN OU DRY EYE; Start 04/17/16 at 15:30 Multi-Ingredient Lotion (Cetaphil Moisturizing Lotion) 1 beba BID TP Last administered on 04/17/16 20:32; Start 04/17/16 at 21:00; Stop 04/18/16 at 15:18 ; Status DC Divalproex Sodium (Depakote) 500 mg DAILY PO Last administered on 04/28/16 09: 15; Start 04/18/16 at 09:00; Stop 04/28/16 at 15:55; Status DC Ibuprofen (Motrin) 200 mg PRN Q6HRS PRN PO PAIN; Start 04/17/16 at 15:45 Loperamide HCl (Imodium) 2 mg PRN Q15MIN PRN PO DIARRHEA; Start 04/17/16 at 15: 45 Multi-Ingred Cream/Lotion/Oil/ Oint (Hydrocerin) 1 beba QHS TP Last administered on 04/17/16 20:33; Start 04/17/16 at 15:45; Stop 04/18/16 at 15:17 ; Status DC Multivitamins/ Calcium (Thera-M Plus) 1 tab DAILY PO Last administered on 09:14; Start 04/18/16 at 09:00 Doxepin HCl (Sinequan) 10 mg QHS PO Last administered on 04/22/16 20:15; Start 04/17/16 at 21:00; Stop 04/23/16 at 16:55; Status DC Atenolol (Tenormin) 50 mg DAILYWSUP PO Last administered on 04/28/16 17:13; Start 04/17/16 at 17:00 Hydrochlorothiazide (Hydrodiuril) 6.25 mg DAILYWSUP PO Last administered on 17:13; Start 04/17/16 at 17:00 Potassium Chloride (Klor-Con) 20 meq DAILY PO Last administered on 04/28/16 09 :15; Start 04/20/16 at 09:00 Multi-Ingred Cream/Lotion/Oil/ Oint (Hydrocerin) 1 beba QHS TP Last administered on 04/27/16 20:21; Start 04/18/16 at 15:17 Multi-Ingredient Lotion (Cetaphil Moisturizing Lotion) 1 beba BID TP Last administered on 04/28/16 09:15; Start 04/18/16 at 15:18 Phenytoin Sodium (Dilantin) 400 mg HS PO Last administered on 04/19/16 20:31; Start 04/18/16 at 21:00; Stop 04/20/16 at 09:25; Status DC Lidocaine (Lidoderm) 1 patch DAILY TD Last administered on 04/28/16 09:18; Start 04/19/16 at 09:00 Oxcarbazepine (Trileptal) 150 mg BID PO Last administered on 04/21/16 08:39; Start 04/18/16 at 21:00; Stop 04/21/16 at 17:49; Status DC Mirtazapine (Remeron) 7.5 mg QHS PO Last administered on 04/27/16 20:20; Start 04/20/16 at 21:00 Divalproex Sodium (Depakote) 250 mg DAILYWLUN PO Last administered on 12:10; Start 04/23/16 at 12:00; Stop 04/28/16 at 15:55; Status DC Divalproex Sodium (Depakote) 500 mg DAILYWSUP PO Last administered on 17:37; Start 04/23/16 at 17:00; Stop 04/28/16 at 15:55; Status DC Risperidone (Risperdal) 0.5 mg QHS PO Last administered on 04/25/16 19:52; Start 04/23/16 at 21:00; Stop 04/26/16 at 10:23; Status DC Trazodone HCl (Desyrel) 50 mg QHS PO Last administered on 04/27/16 20:20; Start 04/23/16 at 21:00 Risperidone (Risperdal) 0.75 mg QHS PO Last administered on 04/27/16 20:21; Start 04/26/16 at 21:00 Divalproex Sodium (Depakote) 500 mg TID PO Last administered on 04/28/16t 17:12 ; Start 04/28/16 at 21:00 Active Scripts Active Reported Trazodone Hcl 50 Mg Tablet 50 Mg PO PRN QHS PRN Remeron (Mirtazapine) 15 Mg Tablet 7.5 Mg PO HS Klor-Con M20 (Potassium Chloride) 20 Meq Tab.er.prt 20 Meq PO DAILY Systane 0.3-0.4% Eye Drops (Propylene Glycol/Peg 400) 15 Ml Drops 1 Drop EACHEYE PRN PRN Nystatin 15 Gm Powder 1 Beba TP PRN PRN Lorazepam 1 Mg Tablet 1 Mg PO PRN Q8HRS PRN Anti-Diarrhea (Loperamide Hcl) 2 Mg Tablet 2 Mg PO PRN PRN Ibuprofen 200 Mg Capsule 200 Mg PO PRN Q6HRS PRN Benadryl (Diphenhydramine Hcl) 25 Mg Capsule 25 Mg PO PRN Q4HRS PRN Tylenol Extra Strength (Acetaminophen) 500 Mg Tablet 500 Mg PO QID Carbidopa-Levo Er 50-200 Tab (Carbidopa/Levodopa) 1 Each Tablet.er 1 Each PO QID Depakote (Divalproex Sodium) 250 Mg Tablet.dr 250 Mg PO BIDACLD Cetaphil Cream (Cetyl Alc/Stearyl Alc/Pg/Sls) 454 Gm Cream..g. 1 Beba TP BID Thera-M (Multivits,Th W-Fe,Other Min) 1 Each Tablet 1 Each PO DAILY Dilantin (Phenytoin Sodium Extended) 100 Mg Capsule 300 Mg PO HS Escitalopram Oxalate 10 Mg Tablet 10 Mg PO DAILY Levothyroxine Sodium 100 Mcg Tablet 100 Mcg PO DAILYAC Ibuprofen 400 Mg Tablet 400 Mg PO HS [doxapin] 10 Mg HS Depakote (Divalproex Sodium) 500 Mg Tablet.dr 500 Mg PO DAILY Bisoprolol-Hctz 5-6.25 Mg Tab (Bisoprolol Fumarate/Hctz) 1 Each Tablet 1 Tab PO DAILYWSUP Children's Aspirin (Aspirin) 81 Mg Tab.chew 81 Mg PO DAILY Amantadine (Amantadine Hcl) 100 Mg Capsule 100 Mg PO DAILY Abilify (Aripiprazole) 10 Mg Tablet 10 Mg PO HS Aquaphor Healing Ointment (Mineral Oil/Hydrophil Petrolat) 50 Gm Oint...g. 1 Beba TP HS Diagnosis: Problems: (1) Impulse control disorder (2) Anxiety disorder (3) Bipolar affective, mixed (4) At risk for falls (5) Dementia in Alzheimer's disease with delusions (6) Dementia in Alzheimer's disease with depression LOUANN ARCEO MD Apr 28, 2016 18:25
[2016-04-28] MEDS: MIRTAZAPINE 7.5 MG TABLET. PO SCH (20:16)
[2016-04-28] MEDS: IBUPROFEN 400 MG TABLET. PO SCH (20:16)
[2016-04-28] MEDS: risperiDONE 0.5 MG TABLET. PO SCH (20:16)
[2016-04-28] MEDS: traZODone 50 MG TABLET. PO SCH (20:17)
[2016-04-28] MEDS: MINERAL OIL/PETROLATUM TOPICAL CREAM 113GM JAR. TP SCH (20:17)
[2016-04-29] MEDS: LEVOTHYROXINE 100 MCG TABLET PO SCH (05:17)
[2016-04-29 05:57] VITALS: BP 128/85
[2016-04-29] MEDS: POTASSIUM CHLORIDE 20 MEQ TABLET.ER. PO SCH (09:09)
[2016-04-29] MEDS: CARBIDOPA/LEVODOPA CR 50/200MG TABLET.SA PO SCH ×4 (09:09→21:41)
[2016-04-29] MEDS: DIVALPROEX SODIUM 250 MG TABLET.DR. PO SCH ×3 (09:09→21:40)
[2016-04-29] MEDS: ESCITALOPRAM 10 MG TABLET. PO SCH (09:10)
[2016-04-29] MEDS: ACETAMINOPHEN 500 MG TABLET PO SCH ×4 (09:10→21:41)
[2016-04-29] MEDS: ASPIRIN 81 MG TAB.CHEW PO SCH (09:10)
[2016-04-29] MEDS: CETAPHIL TP SCH ×2 (09:10→21:42)
[2016-04-29] MEDS: MULTIVITAMIN with MINERAL TABLET. PO SCH (09:10)
[2016-04-29] MEDS: LIDOCAINE (700MG/PATCH) PATCH. TD SCH (09:11)
[2016-04-29] MEDS: AMANTADINE HCL 100 MG CAPSULE PO SCH (09:11)
--- NOTE | 2016-04-29 09:42 | PDOC ---
Exam Andrea Demential Exam: Andrea Note: Please also refer to the separate dictated note~for this date of service dictated separately.~Patient seen individually. Discussed the patient with Nursing staff reviewed the chart.~Reviewed interim history and current functioning. Reviewed vital signs,~Labs/ Radiology~and current medications noted below. Continue current treatment with the changes noted in the dictated addendum note Assessment: Vital Signs: Vital Signs Date Time Temp Pulse Resp B/P Pulse Ox O2 Delivery O2 Flow Rate FiO2 04/29/16 05:57 97.8 77 22 128/85 99 04/23/16 16:29 Room Air I&O Intake and Output 04/29/16 07:00 Intake Total 840 ml Balance 840 ml Intake Oral 840 ml # Voids 1 Current Medications: Meds: Current Medications Potassium Chloride (KCl Oral Soln) 40 meq 1X ONCE PO Last administered on 04/17 13:12; Start 04/17/16 at 13:00; Stop 04/17/16 at 13:01; Status DC Acetaminophen (Tylenol) 650 mg PRN Q6HRS PRN PO PAIN / TEMP; Start 04/17/16 at 14:15; Status Cancel Potassium Chloride (Klor-Con) 20 meq BID66 PO Last administered on 04/19/16 05: 52; Start 04/17/16 at 18:00; Stop 04/19/16 at 07:00; Status DC Acetaminophen (Tylenol) 650 mg PRN Q6HRS PRN PO PAIN / TEMP Last administered on 04/27/16 15:55; Start 04/17/16 at 15:30 Multi-Ingredient Ointment (Analgesic [place]) 1 beba PRN QID PRN TP MUSCLE PAIN; Start 04/17/16 at 15:30 Al Hydroxide/Mg Hydroxide (Mylanta Plus Xs) 15 ml PRN AFTMEALHC PRN PO DYSPEPSIA; Start 04/17/16 at 15:30 Magnesium Hydroxide (Milk Of Magnesia) 2,400 mg PRN QHS PRN PO CONSTIPATION; Start 04/17/16 at 15:30 Acetaminophen (Tylenol) 500 mg QID PO Last administered on 04/29/16 09:10; Start 04/17/16 at 17:00 Amantadine HCl (Symmetrel) 100 mg DAILY PO Last administered on 04/29/16 09:11 ; Start 04/18/16 at 09:00 Aripiprazole (Abilify) 10 mg HS PO Last administered on 04/22/16 20:14; Start 04/17/16 at 21:00; Stop 04/23/16 at 18:11; Status DC Aspirin (Children'S Aspirin) 81 mg DAILY PO Last administered on 04/29/16 09: 10; Start 04/18/16 at 09:00 Bisoprolol Fumarate (Ziac 5-6.25) 1 tab DAILYWSUP PO ; Start 04/17/16 at 17:00; Stop 04/17/16 at 17:00; Status DC Carbidopa/Levodopa (Sinemet Cr) 1 tab.sa QID PO Last administered on 04/29/16 09:09; Start 04/17/16 at 17:00 Diphenhydramine HCl (Benadryl) 25 mg PRN Q4HRS PRN PO ITCHING; Start 04/17/16 at 15:30 Divalproex Sodium (Depakote) 250 mg BIDACLD PO Last administered on 04/22/16 16 :28; Start 04/17/16 at 16:30; Stop 04/22/16 at 18:52; Status DC Escitalopram Oxalate (Lexapro) 10 mg DAILY PO Last administered on 04/29/16 09 :10; Start 04/18/16 at 09:00 Ibuprofen (Motrin) 400 mg HS PO Last administered on 04/28/16 20:16; Start at 21:00 Levothyroxine Sodium (Synthroid) 100 mcg DAILY06 PO Last administered on 05:17; Start 04/18/16 at 06:00 Lorazepam (Ativan) 1 mg PRN Q8HRS PRN PO ANXIETY / AGITATION Last administered on 04/23/16 14:43; Start 04/17/16 at 15:30 Nystatin (Nystop) 1 beba PRN TID PRN TP ITCHING; Start 04/17/16 at 15:30 Phenytoin Sodium (Dilantin) 300 mg HS PO Last administered on 04/17/16 20:31; Start 04/17/16 at 21:00; Stop 04/18/16 at 16:28; Status DC Potassium Chloride (Klor-Con) 20 meq DAILY PO ; Start 04/18/16 at 09:00; Stop 04/18/16 at 09:00; Status DC Polyethyl Glycol/ Propylene Glycol (Systane 0.3-0.4% Oph) 1 drop PRN QID PRN OU DRY EYE; Start 04/17/16 at 15:30 Multi-Ingredient Lotion (Cetaphil Moisturizing Lotion) 1 beba BID TP Last administered on 04/17/16 20:32; Start 04/17/16 at 21:00; Stop 04/18/16 at 15:18 ; Status DC Divalproex Sodium (Depakote) 500 mg DAILY PO Last administered on 04/28/16 09: 15; Start 04/18/16 at 09:00; Stop 04/28/16 at 15:55; Status DC Ibuprofen (Motrin) 200 mg PRN Q6HRS PRN PO PAIN; Start 04/17/16 at 15:45 Loperamide HCl (Imodium) 2 mg PRN Q15MIN PRN PO DIARRHEA; Start 04/17/16 at 15: 45 Multi-Ingred Cream/Lotion/Oil/ Oint (Hydrocerin) 1 beba QHS TP Last administered on 04/17/16 20:33; Start 04/17/16 at 15:45; Stop 04/18/16 at 15:17 ; Status DC Multivitamins/ Calcium (Thera-M Plus) 1 tab DAILY PO Last administered on 09:10; Start 04/18/16 at 09:00 Doxepin HCl (Sinequan) 10 mg QHS PO Last administered on 04/22/16 20:15; Start 04/17/16 at 21:00; Stop 04/23/16 at 16:55; Status DC Atenolol (Tenormin) 50 mg DAILYWSUP PO Last administered on 04/28/16 17:13; Start 04/17/16 at 17:00 Hydrochlorothiazide (Hydrodiuril) 6.25 mg DAILYWSUP PO Last administered on 17:13; Start 04/17/16 at 17:00 Potassium Chloride (Klor-Con) 20 meq DAILY PO Last administered on 04/29/16 09 :09; Start 04/20/16 at 09:00 Multi-Ingred Cream/Lotion/Oil/ Oint (Hydrocerin) 1 beba QHS TP Last administered on 04/28/16 20:17; Start 04/18/16 at 15:17 Multi-Ingredient Lotion (Cetaphil Moisturizing Lotion) 1 beba BID TP Last administered on 04/29/16 09:10; Start 04/18/16 at 15:18 Phenytoin Sodium (Dilantin) 400 mg HS PO Last administered on 04/19/16 20:31; Start 04/18/16 at 21:00; Stop 04/20/16 at 09:25; Status DC Lidocaine (Lidoderm) 1 patch DAILY TD Last administered on 04/29/16 09:11; Start 04/19/16 at 09:00 Oxcarbazepine (Trileptal) 150 mg BID PO Last administered on 04/21/16 08:39; Start 04/18/16 at 21:00; Stop 04/21/16 at 17:49; Status DC Mirtazapine (Remeron) 7.5 mg QHS PO Last administered on 04/28/16 20:16; Start 04/20/16 at 21:00 Divalproex Sodium (Depakote) 250 mg DAILYWLUN PO Last administered on 12:10; Start 04/23/16 at 12:00; Stop 04/28/16 at 15:55; Status DC Divalproex Sodium (Depakote) 500 mg DAILYWSUP PO Last administered on 17:37; Start 04/23/16 at 17:00; Stop 04/28/16 at 15:55; Status DC Risperidone (Risperdal) 0.5 mg QHS PO Last administered on 04/25/16 19:52; Start 04/23/16 at 21:00; Stop 04/26/16 at 10:23; Status DC Trazodone HCl (Desyrel) 50 mg QHS PO Last administered on 04/28/16 20:17; Start 04/23/16 at 21:00 Risperidone (Risperdal) 0.75 mg QHS PO Last administered on 04/28/16 20:16; Start 04/26/16 at 21:00 Divalproex Sodium (Depakote) 500 mg TID PO Last administered on 04/29/16t 09:09 ; Start 04/28/16 at 21:00 Active Scripts Active Reported Trazodone Hcl 50 Mg Tablet 50 Mg PO PRN QHS PRN Remeron (Mirtazapine) 15 Mg Tablet 7.5 Mg PO HS Klor-Con M20 (Potassium Chloride) 20 Meq Tab.er.prt 20 Meq PO DAILY Systane 0.3-0.4% Eye Drops (Propylene Glycol/Peg 400) 15 Ml Drops 1 Drop EACHEYE PRN PRN Nystatin 15 Gm Powder 1 Beba TP PRN PRN Lorazepam 1 Mg Tablet 1 Mg PO PRN Q8HRS PRN Anti-Diarrhea (Loperamide Hcl) 2 Mg Tablet 2 Mg PO PRN PRN Ibuprofen 200 Mg Capsule 200 Mg PO PRN Q6HRS PRN Benadryl (Diphenhydramine Hcl) 25 Mg Capsule 25 Mg PO PRN Q4HRS PRN Tylenol Extra Strength (Acetaminophen) 500 Mg Tablet 500 Mg PO QID Carbidopa-Levo Er 50-200 Tab (Carbidopa/Levodopa) 1 Each Tablet.er 1 Each PO QID Depakote (Divalproex Sodium) 250 Mg Tablet.dr 250 Mg PO BIDACLD Cetaphil Cream (Cetyl Alc/Stearyl Alc/Pg/Sls) 454 Gm Cream..g. 1 Beba TP BID Thera-M (Multivits, W-Fe,Other Min) 1 Each Tablet 1 Each PO DAILY Dilantin (Phenytoin Sodium Extended) 100 Mg Capsule 300 Mg PO HS Escitalopram Oxalate 10 Mg Tablet 10 Mg PO DAILY Levothyroxine Sodium 100 Mcg Tablet 100 Mcg PO DAILYAC Ibuprofen 400 Mg Tablet 400 Mg PO HS [doxapin] 10 Mg HS Depakote (Divalproex Sodium) 500 Mg Tablet.dr 500 Mg PO DAILY Bisoprolol-Hctz 5-6.25 Mg Tab (Bisoprolol Fumarate/Hctz) 1 Each Tablet 1 Tab PO DAILYWSUP Children's Aspirin (Aspirin) 81 Mg Tab.chew 81 Mg PO DAILY Amantadine (Amantadine Hcl) 100 Mg Capsule 100 Mg PO DAILY Abilify (Aripiprazole) 10 Mg Tablet 10 Mg PO HS Aquaphor Healing Ointment (Mineral Oil/Hydrophil Petrolat) 50 Gm Oint...g. 1 Beba TP HS Diagnosis: Problems: (1) Bipolar disorder with psychotic features (2) Bipolar affective, mixed (3) Anxiety disorder (4) Dementia in Alzheimer's disease with delusions (5) Dementia in Alzheimer's disease with depression (6) Impulse control disorder LOUANN ARCEO MD Apr 29, 2016 09:42
--- NOTE | 2016-04-29 10:37 | PN ---
DATE: 04/27/2016 PSYCHIATRIC PROGRESS NOTE This is a late entry 04/27/2016, covers elements not covered in my initial note of 04/27/2016. SUBJECTIVE: Per nursing report, the patient has been intermittently psychotic, convinced she has a yellow cat under a bed, nothing nursing staff could do to . REVIEW OF SYSTEMS: Ambulation impaired. No CV, , pulmonary, eye system symptoms on review. MENTAL STATUS EXAM: Oriented to herself, situation. Speech coherent. Abstraction fair, computation impaired, short term memory is impaired, mood and affect remain somewhat labile. LABORATORY DATA: Reviewed. IMPRESSION: Unchanged from initial note. PLAN: Continue current psychotropics. Adjust as indicated. LOUANN ARCEO MD DR: BETSY/brandie JOB#: [id number] / [id number]
--- NOTE | 2016-04-29 14:26 | PN ---
DATE: 04/28/2016 SUBJECTIVE: This note covers elements not covered in my initial note. Per nursing report, the patient remains somewhat anxious, obsessive about discharge plans. REVIEW OF SYSTEMS: In her wheelchair. No CV, , pulmonary, eye system symptoms on review. MENTAL STATUS EXAM: Oriented to herself and situation. Speech coherent, abstraction fair, computation impaired, language function intact. Mood and affect, lability persists, but is improved. LABORATORY DATA: Valproic acid level is 18. DIAGNOSIS: Mentioned in initial note. PLAN: Increase Depakote from 1250 mg a day to 1500 mg a day. Check labs level in 3 days. Continue Remeron, Lexapro, together with Ativan and Benadryl p.r.n. Adjust further as clinically indicated. Maintain Risperdal 0.75 mg at bedtime, trazodone at bedtime. MAN Mary ARCEO MD DR: BETSY/brandie JOB#: [id number] / [id number]
[2016-04-29 16:27] VITALS: BP 114/65
[2016-04-29] MEDS: ATENOLOL 50 MG TABLET PO SCH (16:33)
[2016-04-29] MEDS: HYDROCHLOROTHIAZIDE 25 MG TABLET PO SCH (16:33)
[2016-04-29] MEDS: traZODone 50 MG TABLET. PO SCH (21:40)
[2016-04-29] MEDS: IBUPROFEN 400 MG TABLET. PO SCH (21:40)
[2016-04-29] MEDS: risperiDONE 0.5 MG TABLET. PO SCH (21:41)
[2016-04-29] MEDS: MIRTAZAPINE 7.5 MG TABLET. PO SCH (21:41)
[2016-04-29] MEDS: MINERAL OIL/PETROLATUM TOPICAL CREAM 113GM JAR. TP SCH (21:42)
[2016-04-30] MEDS: LEVOTHYROXINE 100 MCG TABLET PO SCH (06:30)
[2016-04-30 06:41] VITALS: BP 136/54
[2016-04-30] MEDS: AMANTADINE HCL 100 MG CAPSULE PO SCH (09:01)
[2016-04-30] MEDS: ACETAMINOPHEN 500 MG TABLET PO SCH ×4 (09:01→20:14)
[2016-04-30] MEDS: DIVALPROEX SODIUM 250 MG TABLET.DR. PO SCH ×3 (09:01→20:14)
[2016-04-30] MEDS: MULTIVITAMIN with MINERAL TABLET. PO SCH (09:01)
[2016-04-30] MEDS: POTASSIUM CHLORIDE 20 MEQ TABLET.ER. PO SCH (09:01)
[2016-04-30] MEDS: CARBIDOPA/LEVODOPA CR 50/200MG TABLET.SA PO SCH ×4 (09:01→20:14)
[2016-04-30] MEDS: LIDOCAINE (700MG/PATCH) PATCH. TD SCH (09:01)
[2016-04-30] MEDS: ASPIRIN 81 MG TAB.CHEW PO SCH (09:01)
[2016-04-30] MEDS: ESCITALOPRAM 10 MG TABLET. PO SCH (09:01)
[2016-04-30] MEDS: CETAPHIL TP SCH ×2 (09:02→20:18)
[2016-04-30 16:43] VITALS: BP 121/76
[2016-04-30] MEDS: HYDROCHLOROTHIAZIDE 25 MG TABLET PO SCH (17:20)
[2016-04-30] MEDS: ATENOLOL 50 MG TABLET PO SCH (17:21)
[2016-04-30] MEDS: MIRTAZAPINE 7.5 MG TABLET. PO SCH (20:14)
[2016-04-30] MEDS: IBUPROFEN 400 MG TABLET. PO SCH (20:14)
[2016-04-30] MEDS: traZODone 50 MG TABLET. PO SCH (20:17)
[2016-04-30] MEDS: risperiDONE 0.5 MG TABLET. PO SCH (20:17)
[2016-04-30] MEDS: MINERAL OIL/PETROLATUM TOPICAL CREAM 113GM JAR. TP SCH (20:18)
--- NOTE | 2016-04-30 21:29 | PDOC ---
Exam Andrea Demential Exam: Andrea Note: Please also refer to the separate dictated note~for this date of service dictated separately.~Patient seen individually. Discussed the patient with Nursing staff reviewed the chart.~Reviewed interim history and current functioning. Reviewed vital signs,~Labs/ Radiology~and current medications noted below. Continue current treatment with the changes noted in the dictated addendum note Assessment: Vital Signs: Vital Signs Date Time Temp Pulse Resp B/P Pulse Ox O2 Delivery O2 Flow Rate FiO2 04/30/16 17:21 60 121/76 04/30/16 16:43 97.3 18 96 Room Air I&O Intake and Output 04/30/16 07:00 Intake Total 840 ml Balance 840 ml Intake Oral 840 ml Current Medications: Meds: Current Medications Potassium Chloride (KCl Oral Soln) 40 meq 1X ONCE PO Last administered on 04/17 13:12; Start 04/17/16 at 13:00; Stop 04/17/16 at 13:01; Status DC Acetaminophen (Tylenol) 650 mg PRN Q6HRS PRN PO PAIN / TEMP; Start 04/17/16 at 14:15; Status Cancel Potassium Chloride (Klor-Con) 20 meq BID66 PO Last administered on 04/19/16 05: 52; Start 04/17/16 at 18:00; Stop 04/19/16 at 07:00; Status DC Acetaminophen (Tylenol) 650 mg PRN Q6HRS PRN PO PAIN / TEMP Last administered on 04/27/16 15:55; Start 04/17/16 at 15:30 Multi-Ingredient Ointment (Analgesic [place]) 1 beba PRN QID PRN TP MUSCLE PAIN; Start 04/17/16 at 15:30 Al Hydroxide/Mg Hydroxide (Mylanta Plus Xs) 15 ml PRN AFTMEALHC PRN PO DYSPEPSIA; Start 04/17/16 at 15:30 Magnesium Hydroxide (Milk Of Magnesia) 2,400 mg PRN QHS PRN PO CONSTIPATION; Start 04/17/16 at 15:30 Acetaminophen (Tylenol) 500 mg QID PO Last administered on 04/30/16 20:14; Start 04/17/16 at 17:00 Amantadine HCl (Symmetrel) 100 mg DAILY PO Last administered on 04/30/16 09:01 ; Start 04/18/16 at 09:00 Aripiprazole (Abilify) 10 mg HS PO Last administered on 04/22/16 20:14; Start 04/17/16 at 21:00; Stop 04/23/16 at 18:11; Status DC Aspirin (Children'S Aspirin) 81 mg DAILY PO Last administered on 04/30/16 09: 01; Start 04/18/16 at 09:00 Bisoprolol Fumarate (Ziac 5-6.25) 1 tab DAILYWSUP PO ; Start 04/17/16 at 17:00; Stop 04/17/16 at 17:00; Status DC Carbidopa/Levodopa (Sinemet Cr) 1 tab.sa QID PO Last administered on 04/30/16 20:14; Start 04/17/16 at 17:00 Diphenhydramine HCl (Benadryl) 25 mg PRN Q4HRS PRN PO ITCHING; Start 04/17/16 at 15:30 Divalproex Sodium (Depakote) 250 mg BIDACLD PO Last administered on 04/22/16 16 :28; Start 04/17/16 at 16:30; Stop 04/22/16 at 18:52; Status DC Escitalopram Oxalate (Lexapro) 10 mg DAILY PO Last administered on 04/30/16 09 :01; Start 04/18/16 at 09:00 Ibuprofen (Motrin) 400 mg HS PO Last administered on 04/30/16 20:14; Start at 21:00 Levothyroxine Sodium (Synthroid) 100 mcg DAILY06 PO Last administered on 06:30; Start 04/18/16 at 06:00 Lorazepam (Ativan) 1 mg PRN Q8HRS PRN PO ANXIETY / AGITATION Last administered on 04/23/16 14:43; Start 04/17/16 at 15:30 Nystatin (Nystop) 1 beba PRN TID PRN TP ITCHING; Start 04/17/16 at 15:30 Phenytoin Sodium (Dilantin) 300 mg HS PO Last administered on 04/17/16 20:31; Start 04/17/16 at 21:00; Stop 04/18/16 at 16:28; Status DC Potassium Chloride (Klor-Con) 20 meq DAILY PO ; Start 04/18/16 at 09:00; Stop 04/18/16 at 09:00; Status DC Polyethyl Glycol/ Propylene Glycol (Systane 0.3-0.4% Oph) 1 drop PRN QID PRN OU DRY EYE; Start 04/17/16 at 15:30 Multi-Ingredient Lotion (Cetaphil Moisturizing Lotion) 1 beba BID TP Last administered on 04/17/16 20:32; Start 04/17/16 at 21:00; Stop 04/18/16 at 15:18 ; Status DC Divalproex Sodium (Depakote) 500 mg DAILY PO Last administered on 04/28/16 09: 15; Start 04/18/16 at 09:00; Stop 04/28/16 at 15:55; Status DC Ibuprofen (Motrin) 200 mg PRN Q6HRS PRN PO PAIN; Start 04/17/16 at 15:45 Loperamide HCl (Imodium) 2 mg PRN Q15MIN PRN PO DIARRHEA; Start 04/17/16 at 15: 45 Multi-Ingred Cream/Lotion/Oil/ Oint (Hydrocerin) 1 beba QHS TP Last administered on 04/17/16 20:33; Start 04/17/16 at 15:45; Stop 04/18/16 at 15:17 ; Status DC Multivitamins/ Calcium (Thera-M Plus) 1 tab DAILY PO Last administered on 09:01; Start 04/18/16 at 09:00 Doxepin HCl (Sinequan) 10 mg QHS PO Last administered on 04/22/16 20:15; Start 04/17/16 at 21:00; Stop 04/23/16 at 16:55; Status DC Atenolol (Tenormin) 50 mg DAILYWSUP PO Last administered on 04/30/16 17:21; Start 04/17/16 at 17:00 Hydrochlorothiazide (Hydrodiuril) 6.25 mg DAILYWSUP PO Last administered on 17:20; Start 04/17/16 at 17:00 Potassium Chloride (Klor-Con) 20 meq DAILY PO Last administered on 04/30/16 09 :01; Start 04/20/16 at 09:00 Multi-Ingred Cream/Lotion/Oil/ Oint (Hydrocerin) 1 beba QHS TP Last administered on 04/30/16 20:18; Start 04/18/16 at 15:17 Multi-Ingredient Lotion (Cetaphil Moisturizing Lotion) 1 beba BID TP Last administered on 04/30/16 20:18; Start 04/18/16 at 15:18 Phenytoin Sodium (Dilantin) 400 mg HS PO Last administered on 04/19/16 20:31; Start 04/18/16 at 21:00; Stop 04/20/16 at 09:25; Status DC Lidocaine (Lidoderm) 1 patch DAILY TD Last administered on 04/30/16 09:01; Start 04/19/16 at 09:00 Oxcarbazepine (Trileptal) 150 mg BID PO Last administered on 04/21/16 08:39; Start 04/18/16 at 21:00; Stop 04/21/16 at 17:49; Status DC Mirtazapine (Remeron) 7.5 mg QHS PO Last administered on 04/30/16 20:14; Start 04/20/16 at 21:00 Divalproex Sodium (Depakote) 250 mg DAILYWLUN PO Last administered on 12:10; Start 04/23/16 at 12:00; Stop 04/28/16 at 15:55; Status DC Divalproex Sodium (Depakote) 500 mg DAILYWSUP PO Last administered on 17:37; Start 04/23/16 at 17:00; Stop 04/28/16 at 15:55; Status DC Risperidone (Risperdal) 0.5 mg QHS PO Last administered on 04/25/16 19:52; Start 04/23/16 at 21:00; Stop 04/26/16 at 10:23; Status DC Trazodone HCl (Desyrel) 50 mg QHS PO Last administered on 04/30/16 20:17; Start 04/23/16 at 21:00 Risperidone (Risperdal) 0.75 mg QHS PO Last administered on 04/30/16 20:17; Start 04/26/16 at 21:00 Divalproex Sodium (Depakote) 500 mg TID PO Last administered on 04/30/16t 20:14 ; Start 04/28/16 at 21:00 Active Scripts Active Reported Trazodone Hcl 50 Mg Tablet 50 Mg PO PRN QHS PRN Remeron (Mirtazapine) 15 Mg Tablet 7.5 Mg PO HS Klor-Con M20 (Potassium Chloride) 20 Meq Tab.er.prt 20 Meq PO DAILY Systane 0.3-0.4% Eye Drops (Propylene Glycol/Peg 400) 15 Ml Drops 1 Drop EACHEYE PRN PRN Nystatin 15 Gm Powder 1 Beba TP PRN PRN Lorazepam 1 Mg Tablet 1 Mg PO PRN Q8HRS PRN Anti-Diarrhea (Loperamide Hcl) 2 Mg Tablet 2 Mg PO PRN PRN Ibuprofen 200 Mg Capsule 200 Mg PO PRN Q6HRS PRN Benadryl (Diphenhydramine Hcl) 25 Mg Capsule 25 Mg PO PRN Q4HRS PRN Tylenol Extra Strength (Acetaminophen) 500 Mg Tablet 500 Mg PO QID Carbidopa-Levo Er 50-200 Tab (Carbidopa/Levodopa) 1 Each Tablet.er 1 Each PO QID Depakote (Divalproex Sodium) 250 Mg Tablet.dr 250 Mg PO BIDACLD Cetaphil Cream (Cetyl Alc/Stearyl Alc/Pg/Sls) 454 Gm Cream..g. 1 Beba TP BID Thera-M (Multivits, W-Fe,Other Min) 1 Each Tablet 1 Each PO DAILY Dilantin (Phenytoin Sodium Extended) 100 Mg Capsule 300 Mg PO HS Escitalopram Oxalate 10 Mg Tablet 10 Mg PO DAILY Levothyroxine Sodium 100 Mcg Tablet 100 Mcg PO DAILYAC Ibuprofen 400 Mg Tablet 400 Mg PO HS [doxapin] 10 Mg HS Depakote (Divalproex Sodium) 500 Mg Tablet.dr 500 Mg PO DAILY Bisoprolol-Hctz 5-6.25 Mg Tab (Bisoprolol Fumarate/Hctz) 1 Each Tablet 1 Tab PO DAILYWSUP Children's Aspirin (Aspirin) 81 Mg Tab.chew 81 Mg PO DAILY Amantadine (Amantadine Hcl) 100 Mg Capsule 100 Mg PO DAILY Abilify (Aripiprazole) 10 Mg Tablet 10 Mg PO HS Aquaphor Healing Ointment (Mineral Oil/Hydrophil Petrolat) 50 Gm Oint...g. 1 Beba TP HS Diagnosis: Problems: (1) Bipolar disorder with psychotic features (2) Bipolar affective, mixed (3) Anxiety disorder (4) Dementia in Alzheimer's disease with delusions (5) Dementia in Alzheimer's disease with depression (6) Impulse control disorder LOUANN ARCEO MD Apr 30, 2016 21:29
--- NOTE | 2016-04-30 22:55 | PN ---
DATE: 04/29/2016 This late entry for 04/29/2016 covers elements not covered in my initial note. SUBJECTIVE: Per nursing report, the patient has done reasonably well, though she has intermittent visual hallucinations. Reportedly, she was seeing 9 cats in her room, pointing at them, talking about their colors etc., but not hearing them or feeling them when touched. This could well be part of her poor vision. 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 REVIEW OF SYSTEMS: Ambulation impaired, in her wheelchair. No CV, , pulmonary, eye system symptoms on review. MENTAL STATUS EXAM: Reasonably oriented. Speech coherent, abstraction fair, computation impaired, language function intact. Attention span short. No active suicidal or homicidal ideation. Mood lability is improved. LABORATORY DATA: Reviewed. IMPRESSION: Bipolar 1 disorder, mixed with psychotic features. Anxiety disorder, unspecified; cognitive disorder, unspecified. PLAN: Maintain current psychotropics mentioned in my initial note. Adjust further as clinically indicated. LOUANN ARCEO MD DR: BETSY/brandie JOB#: [id number] / [id number]
[2016-05-01] MEDS: LEVOTHYROXINE 100 MCG TABLET PO SCH (05:39)
[2016-05-01 05:58] VITALS: BP 107/58
[2016-05-01 06:59] LABS: BASO % 1 % (0-3); EOS # 0.3 x10^3/uL (0.0-0.7); EOS % 6 % (0-3); HEMATOCRIT 38.2 % (36.0-47.0); HEMOGLOBIN 12.7 g/dL (12.0-15.5); LYMPH # 1.9 x10^3/uL (1.0-4.8); LYMPH % 39 % (24-48); MEAN CORPUSCULAR HEMOGLOBIN 33 pg (25-35); MEAN CORPUSCULAR HGB CONC 33 g/dL (31-37); MEAN CORPUSCULAR VOLUME 99 fL (79-100); MONO # 0.7 x10^3/uL (0.0-1.1); MONO % 14 % (0-9); NEUT # 1.9 x10^3uL (1.8-7.7); NEUT % 39 % (31-73); PLATELET COUNT 219 x10^3/uL (140-400); RED BLOOD COUNT 3.84 x10^6/uL (3.50-5.40); RED CELL DISTRIBUTION WIDTH 13.9 % (11.5-14.5); WHITE BLOOD COUNT 4.9 x10^3/uL (4.0-11.0)
[2016-05-01 07:05] LABS: ALBUMIN 3.4 g/dL (3.4-5.0); ALBUMIN/GLOBULIN RATIO 1.1 (1.0-1.7); ALK PHOS 170 U/L (46-116); ALT (SGPT) 8 U/L (14-59); ANION GAP 5 (6-14); AST (SGOT) 13 U/L (15-37); BLOOD UREA NITROGEN 21 mg/dL (7-20); BUN/CREATININE RATIO 30 (6-20); CALCIUM 8.2 mg/dL (8.5-10.1); CARBON DIOXIDE 32 mmol/L (21-32); CHLORIDE 105 mmol/L (98-107); CREATININE 0.7 mg/dL (0.6-1.0); GFR 79.7; GLUCOSE 83 mg/dL (70-99); POTASSIUM 3.9 mmol/L (3.5-5.1); SODIUM 142 mmol/L (136-145); TOTAL BILIRUBIN 0.3 mg/dL (0.2-1.0); TOTAL PROTEIN 6.5 g/dL (6.4-8.2)
[2016-05-01 07:12] LABS: VAL ACID 51 mcg/mL (50-100)
[2016-05-01] MEDS: CETAPHIL TP SCH ×2 (09:00→21:42)
[2016-05-01] MEDS: LIDOCAINE (700MG/PATCH) PATCH. TD SCH (09:32)
[2016-05-01] MEDS: DIVALPROEX SODIUM 250 MG TABLET.DR. PO SCH ×3 (09:32→19:40)
[2016-05-01] MEDS: MULTIVITAMIN with MINERAL TABLET. PO SCH (09:33)
[2016-05-01] MEDS: POTASSIUM CHLORIDE 20 MEQ TABLET.ER. PO SCH (09:33)
[2016-05-01] MEDS: CARBIDOPA/LEVODOPA CR 50/200MG TABLET.SA PO SCH ×4 (09:33→19:41)
[2016-05-01] MEDS: ACETAMINOPHEN 500 MG TABLET PO SCH ×4 (09:34→19:41)
[2016-05-01] MEDS: AMANTADINE HCL 100 MG CAPSULE PO SCH (09:34)
[2016-05-01] MEDS: ESCITALOPRAM 10 MG TABLET. PO SCH (09:34)
[2016-05-01] MEDS: ASPIRIN 81 MG TAB.CHEW PO SCH (09:34)
[2016-05-01 15:53] VITALS: BP 148/57
[2016-05-01] MEDS: HYDROCHLOROTHIAZIDE 25 MG TABLET PO SCH (17:27)
[2016-05-01] MEDS: ATENOLOL 50 MG TABLET PO SCH (17:29)
[2016-05-01] MEDS: MIRTAZAPINE 7.5 MG TABLET. PO SCH (19:40)
[2016-05-01] MEDS: IBUPROFEN 400 MG TABLET. PO SCH (19:40)
[2016-05-01] MEDS: traZODone 50 MG TABLET. PO SCH (19:40)
[2016-05-01] MEDS: risperiDONE 0.5 MG TABLET. PO SCH (19:41)
--- NOTE | 2016-05-01 20:51 | PN ---
DATE: 04/30/2016 PSYCHIATRIC PROGRESS NOTE This is a late entry of 04/30/2016 covers elements not covered in my initial note. SUBJECTIVE: Per nursing report, the patient still admits to seeing cats in her room describes some yellow in color, cannot hear them and cannot touch them and this appears more likely to be misperception consequent to vision problems rather than active hallucinations, but is difficult to explain to her and for her to accept that this may be sold. REVIEW OF SYSTEMS: Ambulation impaired in her wheelchair. No CV, , pulmonary, eye, ENT system symptoms on review. She is blind in left eye. MENTAL STATUS EXAM: Oriented to herself and situation. Speech is coherent, somewhat anxious at times. Abstraction fair, computation impaired, language function intact, attention span short. Mood and affect lability is improved. LABORATORY DATA: Reviewed. IMPRESSION: Bipolar 1 disorder mixed with psychotic features, in partial remission; anxiety disorder, unspecified; cognitive disorder, unspecified. PLAN: Continue current psychotropics, Depakote, Ativan p.r.n., Benadryl p.r.n., Remeron, Lexapro, Risperdal, trazodone. Adjust further as clinically indicated. LOUANN ARCEO MD DR: BETSY/brandie JOB#: [id number] / [id number]
--- NOTE | 2016-05-01 21:17 | PDOC ---
Exam Andrea Demential Exam: Andrea Note: Please also refer to the separate dictated note~for this date of service dictated separately.~Patient seen individually. Discussed the patient with Nursing staff reviewed the chart.~Reviewed interim history and current functioning. Reviewed vital signs,~Labs/ Radiology~and current medications noted below. Continue current treatment with the changes noted in the dictated addendum note Assessment: Vital Signs: Vital Signs Date Time Temp Pulse Resp B/P Pulse Ox O2 Delivery O2 Flow Rate FiO2 05/01/16 17:29 54 148/57 05/01/16 15:53 97.0 20 99 04/30/16 16:43 Room Air I&O Intake and Output 05/01/16 07:00 Intake Total 1500 ml Balance 1500 ml Intake Oral 1500 ml Labs: Laboratory Tests Test 05/01/16 06:33 White Blood Count 4.9x10^3/uL (4.0-11.0) Red Blood Count 3.84x10^6/uL (3.50-5.40) Hemoglobin 12.7g/dL (12.0-15.5) Hematocrit 38.2% (36.0-47.0) Mean Corpuscular Volume 99fL (79-100) Mean Corpuscular Hemoglobin 33pg (25-35) Mean Corpuscular Hemoglobin Concent 33g/dL (31-37) Red Cell Distribution Width 13.9% (11.5-14.5) Platelet Count 219x10^3/uL (140-400) Neutrophils (%) (Auto) 39% (31-73) Lymphocytes (%) (Auto) 39% (24-48) Monocytes (%) (Auto) 14% (0-9) H Eosinophils (%) (Auto) 6% (0-3) H Basophils (%) (Auto) 1% (0-3) Neutrophils # (Auto) 1.9x10^3uL (1.8-7.7) Lymphocytes # (Auto) 1.9x10^3/uL (1.0-4.8) Monocytes # (Auto) 0.7x10^3/uL (0.0-1.1) Eosinophils # (Auto) 0.3x10^3/uL (0.0-0.7) Basophils # (Auto) 0.0x10^3/uL (0.0-0.2) Sodium Level 142mmol/L (136-145) Potassium Level 3.9mmol/L (3.5-5.1) Chloride Level 105mmol/L (98-107) Carbon Dioxide Level 32mmol/L (21-32) Anion Gap 5 (6-14) L Blood Urea Nitrogen 21mg/dL (7-20) H Creatinine 0.7mg/dL (0.6-1.0) Estimated GFR (Cockcroft-Gault) 79.7 BUN/Creatinine Ratio 30 (6-20) H Glucose Level 83mg/dL (70-99) Calcium Level 8.2mg/dL (8.5-10.1) L Total Bilirubin 0.3mg/dL (0.2-1.0) Aspartate Amino Transferase (AST) 13U/L (15-37) L Alanine Aminotransferase (ALT) 8U/L (14-59) L Alkaline Phosphatase 170U/L (46-116) H Total Protein 6.5g/dL (6.4-8.2) Albumin 3.4g/dL (3.4-5.0) Albumin/Globulin Ratio 1.1 (1.0-1.7) Valproic Acid Level 51mcg/mL (50-100) Valproic Acid Last Dose Date 04/30/16 Valproic Acid Last Dose Time 2100 Current Medications: Meds: Current Medications Potassium Chloride (KCl Oral Soln) 40 meq 1X ONCE PO Last administered on 04/17 13:12; Start 04/17/16 at 13:00; Stop 04/17/16 at 13:01; Status DC Acetaminophen (Tylenol) 650 mg PRN Q6HRS PRN PO PAIN / TEMP; Start 04/17/16 at 14:15; Status Cancel Potassium Chloride (Klor-Con) 20 meq BID66 PO Last administered on 04/19/16 05: 52; Start 04/17/16 at 18:00; Stop 04/19/16 at 07:00; Status DC Acetaminophen (Tylenol) 650 mg PRN Q6HRS PRN PO PAIN / TEMP Last administered on 04/27/16 15:55; Start 04/17/16 at 15:30 Multi-Ingredient Ointment (Analgesic [place]) 1 beba PRN QID PRN TP MUSCLE PAIN; Start 04/17/16 at 15:30 Al Hydroxide/Mg Hydroxide (Mylanta Plus Xs) 15 ml PRN AFTMEALHC PRN PO DYSPEPSIA; Start 04/17/16 at 15:30 Magnesium Hydroxide (Milk Of Magnesia) 2,400 mg PRN QHS PRN PO CONSTIPATION; Start 04/17/16 at 15:30 Acetaminophen (Tylenol) 500 mg QID PO Last administered on 05/01/16 19:41; Start 04/17/16 at 17:00 Amantadine HCl (Symmetrel) 100 mg DAILY PO Last administered on 05/01/16 09:34 ; Start 04/18/16 at 09:00 Aripiprazole (Abilify) 10 mg HS PO Last administered on 04/22/16 20:14; Start 04/17/16 at 21:00; Stop 04/23/16 at 18:11; Status DC Aspirin (Children'S Aspirin) 81 mg DAILY PO Last administered on 05/01/16 09: 34; Start 04/18/16 at 09:00 Bisoprolol Fumarate (Ziac 5-6.25) 1 tab DAILYWSUP PO ; Start 04/17/16 at 17:00; Stop 04/17/16 at 17:00; Status DC Carbidopa/Levodopa (Sinemet Cr) 1 tab.sa QID PO Last administered on 05/01/16 19:41; Start 04/17/16 at 17:00 Diphenhydramine HCl (Benadryl) 25 mg PRN Q4HRS PRN PO ITCHING; Start 04/17/16 at 15:30 Divalproex Sodium (Depakote) 250 mg BIDACLD PO Last administered on 04/22/16 16 :28; Start 04/17/16 at 16:30; Stop 04/22/16 at 18:52; Status DC Escitalopram Oxalate (Lexapro) 10 mg DAILY PO Last administered on 05/01/16 09 :34; Start 04/18/16 at 09:00 Ibuprofen (Motrin) 400 mg HS PO Last administered on 05/01/16 19:40; Start at 21:00 Levothyroxine Sodium (Synthroid) 100 mcg DAILY06 PO Last administered on 05:39; Start 04/18/16 at 06:00 Lorazepam (Ativan) 1 mg PRN Q8HRS PRN PO ANXIETY / AGITATION Last administered on 04/23/16 14:43; Start 04/17/16 at 15:30 Nystatin (Nystop) 1 beba PRN TID PRN TP ITCHING; Start 04/17/16 at 15:30 Phenytoin Sodium (Dilantin) 300 mg HS PO Last administered on 04/17/16 20:31; Start 04/17/16 at 21:00; Stop 04/18/16 at 16:28; Status DC Potassium Chloride (Klor-Con) 20 meq DAILY PO ; Start 04/18/16 at 09:00; Stop 04/18/16 at 09:00; Status DC Polyethyl Glycol/ Propylene Glycol (Systane 0.3-0.4% Oph) 1 drop PRN QID PRN OU DRY EYE; Start 04/17/16 at 15:30 Multi-Ingredient Lotion (Cetaphil Moisturizing Lotion) 1 beba BID TP Last administered on 04/17/16 20:32; Start 04/17/16 at 21:00; Stop 04/18/16 at 15:18 ; Status DC Divalproex Sodium (Depakote) 500 mg DAILY PO Last administered on 04/28/16 09: 15; Start 04/18/16 at 09:00; Stop 04/28/16 at 15:55; Status DC Ibuprofen (Motrin) 200 mg PRN Q6HRS PRN PO PAIN; Start 04/17/16 at 15:45 Loperamide HCl (Imodium) 2 mg PRN Q15MIN PRN PO DIARRHEA; Start 04/17/16 at 15: 45 Multi-Ingred Cream/Lotion/Oil/ Oint (Hydrocerin) 1 beba QHS TP Last administered on 04/17/16 20:33; Start 04/17/16 at 15:45; Stop 04/18/16 at 15:17 ; Status DC Multivitamins/ Calcium (Thera-M Plus) 1 tab DAILY PO Last administered on 09:33; Start 04/18/16 at 09:00 Doxepin HCl (Sinequan) 10 mg QHS PO Last administered on 04/22/16 20:15; Start 04/17/16 at 21:00; Stop 04/23/16 at 16:55; Status DC Atenolol (Tenormin) 50 mg DAILYWSUP PO Last administered on 05/01/16 17:29; Start 04/17/16 at 17:00 Hydrochlorothiazide (Hydrodiuril) 6.25 mg DAILYWSUP PO Last administered on 17:27; Start 04/17/16 at 17:00 Potassium Chloride (Klor-Con) 20 meq DAILY PO Last administered on 05/01/16 09 :33; Start 04/20/16 at 09:00 Multi-Ingred Cream/Lotion/Oil/ Oint (Hydrocerin) 1 beba QHS TP Last administered on 04/30/16 20:18; Start 04/18/16 at 15:17 Multi-Ingredient Lotion (Cetaphil Moisturizing Lotion) 1 beba BID TP Last administered on 05/01/16 09:00; Start 04/18/16 at 15:18 Phenytoin Sodium (Dilantin) 400 mg HS PO Last administered on 04/19/16 20:31; Start 04/18/16 at 21:00; Stop 04/20/16 at 09:25; Status DC Lidocaine (Lidoderm) 1 patch DAILY TD Last administered on 05/01/16 09:32; Start 04/19/16 at 09:00 Oxcarbazepine (Trileptal) 150 mg BID PO Last administered on 04/21/16 08:39; Start 04/18/16 at 21:00; Stop 04/21/16 at 17:49; Status DC Mirtazapine (Remeron) 7.5 mg QHS PO Last administered on 05/01/16 19:40; Start 04/20/16 at 21:00 Divalproex Sodium (Depakote) 250 mg DAILYWLUN PO Last administered on 12:10; Start 04/23/16 at 12:00; Stop 04/28/16 at 15:55; Status DC Divalproex Sodium (Depakote) 500 mg DAILYWSUP PO Last administered on 17:37; Start 04/23/16 at 17:00; Stop 04/28/16 at 15:55; Status DC Risperidone (Risperdal) 0.5 mg QHS PO Last administered on 04/25/16 19:52; Start 04/23/16 at 21:00; Stop 04/26/16 at 10:23; Status DC Trazodone HCl (Desyrel) 50 mg QHS PO Last administered on 05/01/16 19:40; Start 04/23/16 at 21:00 Risperidone (Risperdal) 0.75 mg QHS PO Last administered on 05/01/16 19:41; Start 04/26/16 at 21:00 Divalproex Sodium (Depakote) 500 mg TID PO Last administered on 05/01/16 19:40 ; Start 04/28/16 at 21:00 Active Scripts Active Reported Trazodone Hcl 50 Mg Tablet 50 Mg PO PRN QHS PRN Remeron (Mirtazapine) 15 Mg Tablet 7.5 Mg PO HS Klor-Con M20 (Potassium Chloride) 20 Meq Tab.er.prt 20 Meq PO DAILY Systane 0.3-0.4% Eye Drops (Propylene Glycol/Peg 400) 15 Ml Drops 1 Drop EACHEYE PRN PRN Nystatin 15 Gm Powder 1 Beba TP PRN PRN Lorazepam 1 Mg Tablet 1 Mg PO PRN Q8HRS PRN Anti-Diarrhea (Loperamide Hcl) 2 Mg Tablet 2 Mg PO PRN PRN Ibuprofen 200 Mg Capsule 200 Mg PO PRN Q6HRS PRN Benadryl (Diphenhydramine Hcl) 25 Mg Capsule 25 Mg PO PRN Q4HRS PRN Tylenol Extra Strength (Acetaminophen) 500 Mg Tablet 500 Mg PO QID Carbidopa-Levo Er 50-200 Tab (Carbidopa/Levodopa) 1 Each Tablet.er 1 Each PO QID Depakote (Divalproex Sodium) 250 Mg Tablet.dr 250 Mg PO BIDACLD Cetaphil Cream (Cetyl Alc/Stearyl Alc/Pg/Sls) 454 Gm Cream..g. 1 Beba TP BID Thera-M (Multivits, W-Fe,Other Min) 1 Each Tablet 1 Each PO DAILY Dilantin (Phenytoin Sodium Extended) 100 Mg Capsule 300 Mg PO HS Escitalopram Oxalate 10 Mg Tablet 10 Mg PO DAILY Levothyroxine Sodium 100 Mcg Tablet 100 Mcg PO DAILYAC Ibuprofen 400 Mg Tablet 400 Mg PO HS [doxapin] 10 Mg HS Depakote (Divalproex Sodium) 500 Mg Tablet.dr 500 Mg PO DAILY Bisoprolol-Hctz 5-6.25 Mg Tab (Bisoprolol Fumarate/Hctz) 1 Each Tablet 1 Tab PO DAILYWSUP Children's Aspirin (Aspirin) 81 Mg Tab.chew 81 Mg PO DAILY Amantadine (Amantadine Hcl) 100 Mg Capsule 100 Mg PO DAILY Abilify (Aripiprazole) 10 Mg Tablet 10 Mg PO HS Aquaphor Healing Ointment (Mineral Oil/Hydrophil Petrolat) 50 Gm Oint...g. 1 Beba TP HS Diagnosis: Problems: (1) Bipolar disorder with psychotic features (2) Bipolar affective, mixed (3) Anxiety disorder (4) Dementia in Alzheimer's disease with delusions (5) Dementia in Alzheimer's disease with depression (6) Impulse control disorder LOUANN ARCEO MD May 01, 2016 21:17
[2016-05-01] MEDS: MINERAL OIL/PETROLATUM TOPICAL CREAM 113GM JAR. TP SCH (21:42)
[2016-05-02 06:01] VITALS: BP 139/56
[2016-05-02] MEDS: LEVOTHYROXINE 100 MCG TABLET PO SCH (06:09)
[2016-05-02] MEDS: POTASSIUM CHLORIDE 20 MEQ TABLET.ER. PO SCH (09:51)
[2016-05-02] MEDS: DIVALPROEX SODIUM 250 MG TABLET.DR. PO SCH ×3 (09:51→19:54)
[2016-05-02] MEDS: MULTIVITAMIN with MINERAL TABLET. PO SCH (09:51)
[2016-05-02] MEDS: CARBIDOPA/LEVODOPA CR 50/200MG TABLET.SA PO SCH ×4 (09:51→19:55)
[2016-05-02] MEDS: ACETAMINOPHEN 500 MG TABLET PO SCH ×4 (09:51→19:55)
[2016-05-02] MEDS: AMANTADINE HCL 100 MG CAPSULE PO SCH (09:51)
[2016-05-02] MEDS: ASPIRIN 81 MG TAB.CHEW PO SCH (09:51)
[2016-05-02] MEDS: ESCITALOPRAM 10 MG TABLET. PO SCH (09:51)
[2016-05-02] MEDS: CETAPHIL TP SCH ×2 (09:52→19:56)
[2016-05-02] MEDS: LIDOCAINE (700MG/PATCH) PATCH. TD SCH (09:52)
[2016-05-02 15:49] VITALS: BP 110/68
[2016-05-02] MEDS: ATENOLOL 50 MG TABLET PO SCH (17:00)
[2016-05-02] MEDS: HYDROCHLOROTHIAZIDE 25 MG TABLET PO SCH (17:02)
[2016-05-02] MEDS: IBUPROFEN 400 MG TABLET. PO SCH (19:54)
[2016-05-02] MEDS: traZODone 50 MG TABLET. PO SCH (19:54)
[2016-05-02] MEDS: MIRTAZAPINE 7.5 MG TABLET. PO SCH (19:54)
[2016-05-02] MEDS: risperiDONE 0.5 MG TABLET. PO SCH (19:55)
[2016-05-02] MEDS: MINERAL OIL/PETROLATUM TOPICAL CREAM 113GM JAR. TP SCH (19:56)
[2016-05-02] MEDS: HYDROCORTISONE 1% TOPICAL OINTMENT 30GM TUBE. TP SCH (21:00)
--- NOTE | 2016-05-02 22:07 | PDOC ---
Exam Andrea Demential Exam: Andrea Note: Please also refer to the separate dictated note~for this date of service dictated separately.~Patient seen individually. Discussed the patient with Nursing staff reviewed the chart.~Reviewed interim history and current functioning. Reviewed vital signs,~Labs/ Radiology~and current medications noted below. Continue current treatment with the changes noted in the dictated addendum note Assessment: Vital Signs: Vital Signs Date Time Temp Pulse Resp B/P Pulse Ox O2 Delivery O2 Flow Rate FiO2 05/02/16 17:00 52 110/68 05/02/16 15:49 97.8 20 96 Room Air I&O Intake and Output 05/02/16 07:00 Intake Total 600 ml Balance 600 ml Intake Oral 600 ml # Voids 2 # Bowel Movements 1 Current Medications: Meds: Current Medications Potassium Chloride (KCl Oral Soln) 40 meq 1X ONCE PO Last administered on 04/17 13:12; Start 04/17/16 at 13:00; Stop 04/17/16 at 13:01; Status DC Acetaminophen (Tylenol) 650 mg PRN Q6HRS PRN PO PAIN / TEMP; Start 04/17/16 at 14:15; Status Cancel Potassium Chloride (Klor-Con) 20 meq BID66 PO Last administered on 04/19/16 05: 52; Start 04/17/16 at 18:00; Stop 04/19/16 at 07:00; Status DC Acetaminophen (Tylenol) 650 mg PRN Q6HRS PRN PO PAIN / TEMP Last administered on 04/27/16 15:55; Start 04/17/16 at 15:30 Multi-Ingredient Ointment (Analgesic [place]) 1 beba PRN QID PRN TP MUSCLE PAIN; Start 04/17/16 at 15:30 Al Hydroxide/Mg Hydroxide (Mylanta Plus Xs) 15 ml PRN AFTMEALHC PRN PO DYSPEPSIA; Start 04/17/16 at 15:30 Magnesium Hydroxide (Milk Of Magnesia) 2,400 mg PRN QHS PRN PO CONSTIPATION; Start 04/17/16 at 15:30 Acetaminophen (Tylenol) 500 mg QID PO Last administered on 05/02/16 19:55; Start 04/17/16 at 17:00 Amantadine HCl (Symmetrel) 100 mg DAILY PO Last administered on 05/02/16 09:51 ; Start 04/18/16 at 09:00 Aripiprazole (Abilify) 10 mg HS PO Last administered on 04/22/16 20:14; Start 04/17/16 at 21:00; Stop 04/23/16 at 18:11; Status DC Aspirin (Children'S Aspirin) 81 mg DAILY PO Last administered on 05/02/16 09: 51; Start 04/18/16 at 09:00 Bisoprolol Fumarate (Ziac 5-6.25) 1 tab DAILYWSUP PO ; Start 04/17/16 at 17:00; Stop 04/17/16 at 17:00; Status DC Carbidopa/Levodopa (Sinemet Cr) 1 tab.sa QID PO Last administered on 05/02/16 19:55; Start 04/17/16 at 17:00 Diphenhydramine HCl (Benadryl) 25 mg PRN Q4HRS PRN PO ITCHING; Start 04/17/16 at 15:30 Divalproex Sodium (Depakote) 250 mg BIDACLD PO Last administered on 04/22/16 16 :28; Start 04/17/16 at 16:30; Stop 04/22/16 at 18:52; Status DC Escitalopram Oxalate (Lexapro) 10 mg DAILY PO Last administered on 05/02/16 09 :51; Start 04/18/16 at 09:00 Ibuprofen (Motrin) 400 mg HS PO Last administered on 05/02/16 19:54; Start at 21:00 Levothyroxine Sodium (Synthroid) 100 mcg DAILY06 PO Last administered on 06:09; Start 04/18/16 at 06:00 Lorazepam (Ativan) 1 mg PRN Q8HRS PRN PO ANXIETY / AGITATION Last administered on 04/23/16 14:43; Start 04/17/16 at 15:30 Nystatin (Nystop) 1 beba PRN TID PRN TP ITCHING; Start 04/17/16 at 15:30 Phenytoin Sodium (Dilantin) 300 mg HS PO Last administered on 04/17/16 20:31; Start 04/17/16 at 21:00; Stop 04/18/16 at 16:28; Status DC Potassium Chloride (Klor-Con) 20 meq DAILY PO ; Start 04/18/16 at 09:00; Stop 04/18/16 at 09:00; Status DC Polyethyl Glycol/ Propylene Glycol (Systane 0.3-0.4% Oph) 1 drop PRN QID PRN OU DRY EYE; Start 04/17/16 at 15:30 Multi-Ingredient Lotion (Cetaphil Moisturizing Lotion) 1 beba BID TP Last administered on 04/17/16 20:32; Start 04/17/16 at 21:00; Stop 04/18/16 at 15:18 ; Status DC Divalproex Sodium (Depakote) 500 mg DAILY PO Last administered on 04/28/16 09: 15; Start 04/18/16 at 09:00; Stop 04/28/16 at 15:55; Status DC Ibuprofen (Motrin) 200 mg PRN Q6HRS PRN PO PAIN; Start 04/17/16 at 15:45 Loperamide HCl (Imodium) 2 mg PRN Q15MIN PRN PO DIARRHEA; Start 04/17/16 at 15: 45 Multi-Ingred Cream/Lotion/Oil/ Oint (Hydrocerin) 1 beba QHS TP Last administered on 04/17/16 20:33; Start 04/17/16 at 15:45; Stop 04/18/16 at 15:17 ; Status DC Multivitamins/ Calcium (Thera-M Plus) 1 tab DAILY PO Last administered on 09:51; Start 04/18/16 at 09:00 Doxepin HCl (Sinequan) 10 mg QHS PO Last administered on 04/22/16 20:15; Start 04/17/16 at 21:00; Stop 04/23/16 at 16:55; Status DC Atenolol (Tenormin) 50 mg DAILYWSUP PO Last administered on 05/01/16 17:29; Start 04/17/16 at 17:00 Hydrochlorothiazide (Hydrodiuril) 6.25 mg DAILYWSUP PO Last administered on 17:02; Start 04/17/16 at 17:00 Potassium Chloride (Klor-Con) 20 meq DAILY PO Last administered on 05/02/16 09 :51; Start 04/20/16 at 09:00 Multi-Ingred Cream/Lotion/Oil/ Oint (Hydrocerin) 1 beba QHS TP Last administered on 05/02/16 19:56; Start 04/18/16 at 15:17 Multi-Ingredient Lotion (Cetaphil Moisturizing Lotion) 1 beba BID TP Last administered on 05/02/16 19:56; Start 04/18/16 at 15:18 Phenytoin Sodium (Dilantin) 400 mg HS PO Last administered on 04/19/16 20:31; Start 04/18/16 at 21:00; Stop 04/20/16 at 09:25; Status DC Lidocaine (Lidoderm) 1 patch DAILY TD Last administered on 05/02/16 09:52; Start 04/19/16 at 09:00 Oxcarbazepine (Trileptal) 150 mg BID PO Last administered on 04/21/16 08:39; Start 04/18/16 at 21:00; Stop 04/21/16 at 17:49; Status DC Mirtazapine (Remeron) 7.5 mg QHS PO Last administered on 05/02/16 19:54; Start 04/20/16 at 21:00 Divalproex Sodium (Depakote) 250 mg DAILYWLUN PO Last administered on 12:10; Start 04/23/16 at 12:00; Stop 04/28/16 at 15:55; Status DC Divalproex Sodium (Depakote) 500 mg DAILYWSUP PO Last administered on 17:37; Start 04/23/16 at 17:00; Stop 04/28/16 at 15:55; Status DC Risperidone (Risperdal) 0.5 mg QHS PO Last administered on 04/25/16 19:52; Start 04/23/16 at 21:00; Stop 04/26/16 at 10:23; Status DC Trazodone HCl (Desyrel) 50 mg QHS PO Last administered on 05/02/16 19:54; Start 04/23/16 at 21:00 Risperidone (Risperdal) 0.75 mg QHS PO Last administered on 05/02/16 19:55; Start 04/26/16 at 21:00 Divalproex Sodium (Depakote) 500 mg TID PO Last administered on 05/02/16t 19:54 ; Start 04/28/16 at 21:00 Cetirizine HCl (Zyrtec) 10 mg DAILY PO ; Start 05/03/16 at 09:00 Hydrocortisone (Cortaid) 1 beba BID TP ; Start 05/02/16 at 21:00 Active Scripts Active Reported Trazodone Hcl 50 Mg Tablet 50 Mg PO PRN QHS PRN Remeron (Mirtazapine) 15 Mg Tablet 7.5 Mg PO HS Klor-Con M20 (Potassium Chloride) 20 Meq Tab.er.prt 20 Meq PO DAILY Systane 0.3-0.4% Eye Drops (Propylene Glycol/Peg 400) 15 Ml Drops 1 Drop EACHEYE PRN PRN Nystatin 15 Gm Powder 1 Beba TP PRN PRN Lorazepam 1 Mg Tablet 1 Mg PO PRN Q8HRS PRN Anti-Diarrhea (Loperamide Hcl) 2 Mg Tablet 2 Mg PO PRN PRN Ibuprofen 200 Mg Capsule 200 Mg PO PRN Q6HRS PRN Benadryl (Diphenhydramine Hcl) 25 Mg Capsule 25 Mg PO PRN Q4HRS PRN Tylenol Extra Strength (Acetaminophen) 500 Mg Tablet 500 Mg PO QID Carbidopa-Levo Er 50-200 Tab (Carbidopa/Levodopa) 1 Each Tablet.er 1 Each PO QID Depakote (Divalproex Sodium) 250 Mg Tablet.dr 250 Mg PO BIDACLD Cetaphil Cream (Cetyl Alc/Stearyl Alc/Pg/Sls) 454 Gm Cream..g. 1 Beba TP BID Thera-M (Multivits,-,Other Min) 1 Each Tablet 1 Each PO DAILY Dilantin (Phenytoin Sodium Extended) 100 Mg Capsule 300 Mg PO HS Escitalopram Oxalate 10 Mg Tablet 10 Mg PO DAILY Levothyroxine Sodium 100 Mcg Tablet 100 Mcg PO DAILYAC Ibuprofen 400 Mg Tablet 400 Mg PO HS [doxapin] 10 Mg HS Depakote (Divalproex Sodium) 500 Mg Tablet.dr 500 Mg PO DAILY Bisoprolol-Hctz 5-6.25 Mg Tab (Bisoprolol Fumarate/Hctz) 1 Each Tablet 1 Tab PO DAILYWSUP Children's Aspirin (Aspirin) 81 Mg Tab.chew 81 Mg PO DAILY Amantadine (Amantadine Hcl) 100 Mg Capsule 100 Mg PO DAILY Abilify (Aripiprazole) 10 Mg Tablet 10 Mg PO HS Aquaphor Healing Ointment (Mineral Oil/Hydrophil Petrolat) 50 Gm Oint...g. 1 Beba TP HS Diagnosis: Problems: (1) Impulse control disorder (2) Dementia in Alzheimer's disease with depression (3) Dementia in Alzheimer's disease with delusions (4) Anxiety disorder (5) Bipolar affective, mixed (6) Bipolar disorder with psychotic features LOUANN ARCEO MD May 02, 2016 22:07
--- NOTE | 2016-05-02 23:35 | PN ---
DATE: 05/01/2016 This late entry for 05/01/2016 covers elements not covered in my initial note. SUBJECTIVE: Per nursing report, the patient still states she sees cats, though she cannot hear them or touch them and in the evening when the lights are shut off, she sees swarms of insects flying around the room. On close questioning and assessment, these are not true delusions, but rather visual misperceptions consequent to her eye problems, but at times, the patient has difficulty accepting this. REVIEW OF SYSTEMS: Blind left eye. Impaired ambulation, in a wheelchair. No CV, , GI, ENT system symptoms on review, slightly hard of hearing. MENTAL STATUS EXAM: Oriented to herself and situation. Speech coherent. She is pleasant, less anxious. Abstraction fair, computation impaired, language function intact. Mood and affect appears less labile. LABORATORY DATA: Reviewed. IMPRESSION: Bipolar 1 disorder, mixed with psychotic features, in partial remission; anxiety disorder, unspecified; impulse control disorder, unspecified; cognitive disorder, unspecified. PLAN: Continue psychotropics mentioned in my initial note. Make further adjustments as clinically indicated. Possible transition to a lower level of care in the next couple of days. LOUANN ARCEO MD DR: BETSY/brandie JOB#: [id number] / [id number]
[2016-05-03] MEDS ORDERED: ACET325T9 PO (02:22)
[2016-05-03] MEDS ORDERED: ATEN50TA PO (02:24)
[2016-05-03] MEDS ORDERED: HYDR12.58 PO (02:37)
[2016-05-03] MEDS ORDERED: LIDO700A4 TP (02:40)
[2016-05-03] MEDS ORDERED: MAG30ORA2 PO (02:42)
[2016-05-03] MEDS ORDERED: MAGN2400 PO (02:43)
[2016-05-03] MEDS ORDERED: METH29OI TP (02:44)
[2016-05-03] MEDS ORDERED: VIT236LO TP (02:46)
[2016-05-03] MEDS ORDERED: RISP0.5T18 PO (02:47)
[2016-05-03] MEDS: LEVOTHYROXINE 100 MCG TABLET PO SCH (05:38)
[2016-05-03 05:45] VITALS: BP 149/74
[2016-05-03] MEDS: AMANTADINE HCL 100 MG CAPSULE PO SCH (08:03)
[2016-05-03] MEDS: ESCITALOPRAM 10 MG TABLET. PO SCH (08:03)
[2016-05-03] MEDS: CARBIDOPA/LEVODOPA CR 50/200MG TABLET.SA PO SCH ×2 (08:03→13:00)
[2016-05-03] MEDS: MULTIVITAMIN with MINERAL TABLET. PO SCH (08:03)
[2016-05-03] MEDS: ACETAMINOPHEN 500 MG TABLET PO SCH ×2 (08:03→13:00)
[2016-05-03] MEDS: ASPIRIN 81 MG TAB.CHEW PO SCH (08:03)
[2016-05-03] MEDS: POTASSIUM CHLORIDE 20 MEQ TABLET.ER. PO SCH (08:04)
[2016-05-03] MEDS: DIVALPROEX SODIUM 250 MG TABLET.DR. PO SCH ×2 (08:04→14:00)
[2016-05-03] MEDS: HYDROCORTISONE 1% TOPICAL OINTMENT 30GM TUBE. TP SCH (09:00)
[2016-05-03] MEDS ORDERED: CETIRIZINE HCL 10 MG TABLET PO SCH (09:00)
[2016-05-03] MEDS: LIDOCAINE (700MG/PATCH) PATCH. TD SCH (09:28)
[2016-05-03] MEDS: CETAPHIL TP SCH (09:29)
[2016-05-03] MEDS: MINERAL OIL/PETROLATUM TOPICAL CREAM 113GM JAR. TP SCH (09:29)
[2016-05-03 15:40] VITALS: BP 112/60
--- NOTE | 2016-05-03 22:00 | DS ---
DATE OF DISCHARGE: 05/03/2016 REASON FOR ADMISSION: Please refer to the admission history for details. Briefly, the patient is an 85-year-old female referred to us from [facility] by her primary care physician and staff and family on account of increasing agitation, hitting staff, marked insomnia, aggression, refusing medications, being hyper-muslim, hallucinating. She had failed outpatient psychiatric interventions. SIGNIFICANT FINDINGS AND CLINICAL COURSE: Following admission, the patient was seen daily individually by myself, followed medically per Dr. Calero and Dr. Palmer. She remains somewhat withdrawn, intermittently anxious, labile. Adjustments were made in her psychotropics and she seemed to respond to a combination of Depakote 500 mg t.i.d., Ativan p.r.n., Benadryl p.r.n., Remeron 7.5 mg at bedtime, Lexapro 10 mg a day, Risperdal 0.75 mg at bedtime, trazodone 50 at bedtime, june repeat x 1 for insomnia. Prior to discharge on 05/03/2016, temperature 97.4, BP 149/74, pulse 53, respirations 20. REVIEW OF SYSTEMS: Impaired ambulation in a wheelchair, hard of hearing. No CV, , pulmonary, eye system symptoms on review. MENTAL STATUS EXAM: Oriented to herself and situations. Speech coherent, abstraction fair, computation impaired, language function intact, attention span short. Mood and affect was improved. FINAL DIAGNOSES: Bipolar 1 disorder, mixed with psychotic features, in partial remission; anxiety disorder, unspecified; impulse control disorder, unspecified. Rest diagnosis unchanged. DISCHARGE MEDICATIONS: Please refer to the [facility]. Outpatient psychiatric and medical followup at the senior care. Time for discharge day management greater than 30 minutes. MAN Mary ARCEO MD DR: BETSY/brandie JOB#: [id number] / [id number]
--- NOTE | 2016-05-03 22:56 | PN ---
DATE: 05/02/2016 This is a late entry for 05/02/2016 covers elements not covered in my initial note of 05/02/2016. SUBJECTIVE: Per nursing report, the patient has been much more cooperative on the unit. She still has the visual misperceptions of cats and bugs at night, but this seems more part of visual problems rather than any hallucinations. REVIEW OF SYSTEMS: Ambulation impaired, in a wheelchair. No CV, , pulmonary, eye system symptoms on review. She is hard of hearing, met with her at length in the living room. MENTAL STATUS EXAM: Oriented to herself and situation. Speech is coherent. She was tearful at times, discussing that she had been here about 10 days to 2 weeks and none of her family had visited her and had not called to explain to her why they wanted her here in the first place. I did discuss this with her at some length. MENTAL STATUS EXAM: Oriented to herself and situation. Speech coherent, abstraction fair, computation impaired, language function intact. Mood and affect is improved. LABORATORY DATA: Reviewed. IMPRESSION: Bipolar 1 disorder, mixed with psychotic features. Anxiety disorder, unspecified; impulse control disorder, unspecified; history of major depressive disorder with psychotic features, rest diagnoses unchanged. PLAN: Continue psychotropics mentioned in my initial note. Transition to group home possibly on 05/03/2016. MAN Mary ARCEO MD DR: BETSY/brandie JOB#: [id number] / [id number]
== END 2016-05-03 15:15 | DRG 884 ==
LOC: ER 10:48 → GEROPSY 14:45
PROVIDERS: ADMIT Psychiatry & Neurology Psychiatry; ATTEND Psychiatry & Neurology Psychiatry
DX: F01.51 Vascular dementia, unspecified severity, with behavioral disturbance (principal); F31.64 Bipolar disorder, current episode mixed, severe, with psychotic features; F02.81 Dementia in other diseases classified elsewhere, unspecified severity, with behavioral disturbance; E03.9 Hypothyroidism, unspecified; E55.9 Vitamin D deficiency, unspecified; E78.5 Hyperlipidemia, unspecified; F63.9 Impulse disorder, unspecified; G20 Parkinson's disease; F41.9 Anxiety disorder, unspecified; G30.9 Alzheimer's disease, unspecified; I10 Essential (primary) hypertension; H54.42 Blindness, left eye, normal vision right eye; G47.00 Insomnia, unspecified; F09 Unspecified mental disorder due to known physiological condition; E87.6 Hypokalemia; G40.409 Other generalized epilepsy and epileptic syndromes, not intractable, without status epilepticus; M54.5 Low back pain; Z66 Do not resuscitate; H91.90 Unspecified hearing loss, unspecified ear; G89.29 Other chronic pain; M16.0 Bilateral primary osteoarthritis of hip; F17.200 Nicotine dependence, unspecified, uncomplicated; G30.0 Alzheimer's disease with early onset; Z88.0 Allergy status to penicillin; Z79.899 Other long term (current) drug therapy; Z91.81 History of falling; Z82.49 Family history of ischemic heart disease and other diseases of the circulatory system; Z88.1 Allergy status to other antibiotic agents
CPT/HCPCS: 36415; 51701; 71100; 72192; 73521; 80048; 80053; 80061; 80164; 80185; 81001; 82306; 82607; 83036; 83540; 83550; 83735; 84436; 84439; 84443; 84480; 84481; 85027; 86592; 86593; 93005; 95816; 97110; 97116; 97530; 97535; 99285-25